=== PATIENT | male | born 1940 | race Caucasian/White ===

== ENCOUNTER 2017-01-26 11:59 | Observation (INO) ==
--- NOTE | 2017-01-26 12:10 | Emergency Department Note ---
Disposition Clinical Impression: Nausea & vomiting, Elevated troponin I level Disposition: Admitted As Inpatient Condition: Good General Adult HPI - General Chief complaint: ED Shortness of Breath/Dyspnea Stated complaint: vomiting, HERLINDA, Time Seen by Provider: 01/26/17 12:06 Source: patient Limitations: no limitations - History of Present Illness Pain Scale: 0 - Related Data Home Medications Medication Instructions Recorded Confirmed Amlodipine [Norvasc] 5 mg PO BID 01/26/17 01/26/17 Aspirin [Lo-Dose Aspirin EC] 81 mg PO DAILY 01/26/17 01/26/17 Carvedilol [Coreg] 3.125 mg PO BID 01/26/17 01/26/17 CloNIDine HCl [Kapvay] 0.1 mg PO TID 01/26/17 01/26/17 Digoxin [Lanoxin] 0.125 mg PO Q48H 01/26/17 01/26/17 Furosemide [Lasix] 20 mg PO BID 01/26/17 01/26/17 Insulin Glargine [Lantus] 55 unit SQ QAM 01/26/17 01/26/17 Insulin Regular, Human [Novolin R] 2 - 10 unit SQ TIDWM 01/26/17 01/26/17 Lisinopril [Lisinopril] 40 mg PO QAM 01/26/17 01/26/17 Omeprazole [PriLOSEC] 20 mg PO QAM 01/26/17 01/26/17 Sertraline [Zoloft] 50 mg PO HS 01/26/17 01/26/17 Simvastatin [Simvastatin] 10 mg PO HS 01/26/17 01/26/17 Warfarin [Coumadin] 5 mg PO Q48H 01/26/17 01/26/17 Warfarin [Coumadin] 7.5 mg PO Q48H 01/26/17 01/26/17 Allergies Allergy/AdvReac Type Severity Reaction Status Date / Time No Known Allergies Allergy Verified 02/05/16 19:23 Past Medical History - Past Medical History Medical history: Reports: atrial fibrillation, diabetes, hypertension, renal disease, other Psychiatric history: Reports: no psych history - Social History Smoking Status: Current every day smoker Smokeless Tobacco Status: No Alcohol use: Reports: none Drug use: Reports: none Physical Exam - General Limitations: no limitations General appearance: alert, in no apparent distress Course Vital Signs Temperature 97.4 F L 01/26/17 12:01 Pulse Rate 76 01/26/17 12:01 Respiratory Rate 18 01/26/17 12:01 Blood Pressure 125/78 01/26/17 12:01 O2 Sat by Pulse Oximetry 94 L 01/26/17 12:01 Temperature 98.1 F 01/26/17 19:55 Pulse Rate 58 01/26/17 19:55 Respiratory Rate 16 01/26/17 19:55 Blood Pressure 168/80 01/26/17 19:55 O2 Sat by Pulse Oximetry 93 L 01/26/17 19:55 Oxygen Delivery Oxygen Delivery Room Air Medical Decision Making - Lab Data Result diagrams: 01/26/17 12:40 01/26/17 12:40 Lab Results 01/26/17 01/26/17 01/26/17 Range/Units 12:40 12:40 12:40 WBC 9.7 (4.3-11.1) K/mcL RBC 4.32 (4.19-5.50) M/mcL Hgb 13.1 (12.9-16.9) g/dL Hct 38.5 (37.5-50.1) % MCV 89.1 (83.0-100.0) fL MCH 30.3 (28.0-33.3) pg MCHC 34.0 (31.6-35.5) g/dL RDW 13.8 (11.5-14.5) % Plt Count 188 (140-400) K/mcL MPV 9.0 L (9.4-12.4) fL Immature Gran % 0.5 (0-4) % Seg Neutrophils % 80.6 % Lymphocytes % 12.7 % Monocytes % 4.5 % Eosinophils % 1.3 % Basophils % 0.4 % Neutrophils # 7.8 (1.6-8.9) K/mcL Lymphocytes # 1.2 (0.6-4.6) K/mcL Monocytes # 0.4 (0.0-1.3) K/mcL Eosinophils # 0.1 (0.0-0.6) K/mcL Basophils # 0.0 (0.0-0.2) K/mcL PT 19.3 H (9.4-12.1) Seconds INR 1.8 Sodium 136 (136-145) mEq/L Potassium 3.8 (3.5-4.5) mEq/L Chloride 107 (98-109) mEq/L Carbon Dioxide 18 L (19-29) mEq/L BUN 23 (8-26) mg/dL Creatinine 2.34 H (0.72-1.25) mg/dL Est GFR ( Amer) 33 L (> 60) Est GFR (Non-Af Amer) 27 L (> 60) BUN/Creatinine Ratio 10 (6-26) Glucose 168 H (70-99) mg/dL Calculated Osmolality 290 (280-300) Calcium 9.2 (8.6-10.8) mg/dL Total Bilirubin 1.1 (0.2-1.2) mg/dL Direct Bilirubin 0.3 (0.0-0.5) mg/dL Indirect Bilirubin 0.8 (0.0-1.2) mg/dL AST 19 (5-34) Units/L ALT 12 (0-55) Units/L Alkaline Phosphatase 120 (38-126) Units/L Troponin I (0-0.03) ng/mL Serum Total Protein 7.8 (6.0-8.3) g/dL Albumin 3.3 L (3.5-5.0) g/dL Globulin 4.5 H (2.4-3.5) g/dL Albumin/Globulin Ratio 0.7 L (1.1-2.2) Lipase 43 (8-78) Units/L Digoxin 0.4 L (0.8-2.0) ng/mL 03/12/17 Range/Units 12:40 WBC (4.3-11.1) K/mcL RBC (4.19-5.50) M/mcL Hgb (12.9-16.9) g/dL Hct (37.5-50.1) % MCV (83.0-100.0) fL MCH (28.0-33.3) pg MCHC (31.6-35.5) g/dL RDW (11.5-14.5) % Plt Count (140-400) K/mcL MPV (9.4-12.4) fL Immature Gran % (0-4) % Seg Neutrophils % % Lymphocytes % % Monocytes % % Eosinophils % % Basophils % % Neutrophils # (1.6-8.9) K/mcL Lymphocytes # (0.6-4.6) K/mcL Monocytes # (0.0-1.3) K/mcL Eosinophils # (0.0-0.6) K/mcL Basophils # (0.0-0.2) K/mcL PT (9.4-12.1) Seconds INR Sodium (136-145) mEq/L Potassium (3.5-4.5) mEq/L Chloride (98-109) mEq/L Carbon Dioxide (19-29) mEq/L BUN (8-26) mg/dL Creatinine (0.72-1.25) mg/dL Est GFR ( Amer) (> 60) Est GFR (Non-Af Amer) (> 60) BUN/Creatinine Ratio (6-26) Glucose (70-99) mg/dL Calculated Osmolality (280-300) Calcium (8.6-10.8) mg/dL Total Bilirubin (0.2-1.2) mg/dL Direct Bilirubin (0.0-0.5) mg/dL Indirect Bilirubin (0.0-1.2) mg/dL AST (5-34) Units/L ALT (0-55) Units/L Alkaline Phosphatase (38-126) Units/L Troponin I 0.05 H* (0-0.03) ng/mL Serum Total Protein (6.0-8.3) g/dL Albumin (3.5-5.0) g/dL Globulin (2.4-3.5) g/dL Albumin/Globulin Ratio (1.1-2.2) Lipase (8-78) Units/L Digoxin (0.8-2.0) ng/mL Attestation Statement - Attestation Attestation: I examined this patient and my medical decision-making was reviewed with the DAY CARE AIDE/PA/Advanced Practice Nurse/Resident Physician. I agree with the documented findings, disposition and treatment plan as described except to the extent set forth below. Face to face time provided Patient presents feeling dizzy and nauseated since this morning. He is hard of hearing on exam. I did review his home medications and see that he takes both warfarin and digoxin.
[2017-01-26] MEDS ORDERED: Ondansetron ODT 4 MG TAB.RAPDIS SL ONE (12:19)
[2017-01-26] MEDS ORDERED: 0.9 % Sodium Chloride 1,000 ML IVC ONE (12:19)
--- NOTE | 2017-01-26 12:29 | Emergency Department Note ---
Disposition Clinical Impression: Elevated troponin I level Nausea & vomiting Qualifiers: Vomiting type: unspecified Vomiting Intractability: intractable Qualified Code( s): R11.2 - Nausea with vomiting, unspecified Disposition: Admitted As Inpatient Condition: Good General Adult HPI - General Chief complaint: ED Shortness of Breath/Dyspnea Stated complaint: vomiting, HERLINDA, Time Seen by Provider: 01/26/17 12:06 Source: patient Limitations: no limitations Nursing Notes Reviewed: Yes Vital Signs Reviewed: Yes - History of Present Illness HPI Narrative: Patient is here for evaluation of sudden onset nausea and multiple episodes of vomiting. Patient states that his son in their both have similar symptoms. Patient is concerned for flu. Patient denies abdominal pain. However upon abdominal examination patient became cueing nauseous and vomited multiple times in the room. Patient states that he has not had symptoms like this in quite some time since he usually gets the flu shot but did not this year. Patient has had no abnormal bowel movements. Patient does not complain a cough of cough or difficulty breathing. Denies fever but states he has lots of chills and is usually cold. Pain Scale: 0 - Related Data Home Medications Medication Instructions Recorded Confirmed Amlodipine [Norvasc] 5 mg PO BID 01/26/17 01/26/17 Aspirin [Lo-Dose Aspirin EC] 81 mg PO DAILY 01/26/17 01/26/17 Carvedilol [Coreg] 3.125 mg PO BID 01/26/17 01/26/17 CloNIDine HCl [Kapvay] 0.1 mg PO TID 01/26/17 01/26/17 Digoxin [Lanoxin] 0.125 mg PO Q48H 01/26/17 01/26/17 Furosemide [Lasix] 20 mg PO BID 01/26/17 01/26/17 Insulin Glargine [Lantus] 55 unit SQ QAM 01/26/17 01/26/17 Insulin Regular, Human [Novolin R] 2 - 10 unit SQ TIDWM 01/26/17 01/26/17 Lisinopril [Lisinopril] 40 mg PO QAM 01/26/17 01/26/17 Omeprazole [PriLOSEC] 20 mg PO QAM 01/26/17 01/26/17 Sertraline [Zoloft] 50 mg PO HS 01/26/17 01/26/17 Simvastatin [Simvastatin] 10 mg PO HS 01/26/17 01/26/17 Warfarin [Coumadin] 5 mg PO Q48H 01/26/17 01/26/17 Warfarin [Coumadin] 7.5 mg PO Q48H 01/26/17 01/26/17 Allergies Allergy/AdvReac Type Severity Reaction Status Date / Time No Known Allergies Allergy Verified 02/05/16 19:23 All systems ED: reviewed and negative except as stated. Constitutional: Reports: chills, weakness. Denies: fever Cardiovascular: Denies: chest pain, palpitations, dyspnea on exertion Respiratory: Denies: cough, dyspnea Gastrointestinal: Reports: nausea, vomiting. Denies: abdominal pain Genitourinary: Denies: urgency, dysuria Musculoskeletal: Denies: back pain Integumentary: Denies: rash, abrasion Neurological: Denies: headache, weakness Psychiatric: Denies: anxiety, depression Endocrine: Reports: fatigue Past Medical History - Past Medical History Medical history: Reports: atrial fibrillation, diabetes, hypertension, renal disease, other Psychiatric history: Reports: no psych history - Social History Smoking Status: Current every day smoker Smokeless Tobacco Status: No Alcohol use: Reports: none Drug use: Reports: none Physical Exam - General Limitations: no limitations General appearance: alert, in no apparent distress - Head Head exam: atraumatic, normocephalic - Eye Eye exam: Present: normal appearance, PERRL - ENT ENT exam: normal exam, normal oropharynx - Neck Neck exam: Present: normal inspection, full ROM - Chest Chest inspection: Present: normal inspection, symmetric chest wall rise. Absent : tenderness - Respiratory Respiratory exam: Present: normal lung sounds bilaterally. Absent: respiratory distress, wheezes - Cardiovascular Cardiovascular exam: Present: regular rate, normal rhythm - Abdominal Exam Abdominal exam: Present: soft, Non-Tender - Extremities Exam Extremities exam: Present: normal inspection - Back Exam Back exam: Present: normal inspection - Neurological Exam Neurological exam: Present: alert, oriented X3 - Psychiatric Psychiatric exam: Present: normal affect, normal mood - Skin Skin exam: Present: warm, dry Course - Reevaluation(s) Reevaluation #1: Patient vomiting over his gown, the floor, and my shoes. The patient with repeated retching and resulting emesis everywhere. Reevaluation #2: Pt somewhat improved with antiemetics. Family members also sick and unable to help care for him with his increased needs at this time. - Consultations Consultation #1: Discussed with Dr. Clark. Patient accepted for admission. Will obtain Chest Xray. Vital Signs Temperature 97.4 F L 01/26/17 12:01 Pulse Rate 76 01/26/17 12:01 Respiratory Rate 18 01/26/17 12:01 Blood Pressure 125/78 01/26/17 12:01 O2 Sat by Pulse Oximetry 94 L 01/26/17 12:01 Temperature 97.6 F 01/26/17 15:50 Pulse Rate 69 01/26/17 15:50 Respiratory Rate 18 01/26/17 15:50 Blood Pressure 170/82 01/26/17 17:17 O2 Sat by Pulse Oximetry 95 01/26/17 15:50 Oxygen Delivery Oxygen Delivery Room Air Medical Decision Making - Medical Records Medical records reviewed: Yes I reviewed the patient's medical records. - Lab Data Lab results reviewed: Yes I reviewed the patient's lab results. Result diagrams: 01/26/17 12:40 01/26/17 12:40 Lab Results 01/26/17 01/26/17 01/26/17 Range/Units 12:40 12:40 12:40 WBC 9.7 (4.3-11.1) K/mcL RBC 4.32 (4.19-5.50) M/mcL Hgb 13.1 (12.9-16.9) g/dL Hct 38.5 (37.5-50.1) % MCV 89.1 (83.0-100.0) fL MCH 30.3 (28.0-33.3) pg MCHC 34.0 (31.6-35.5) g/dL RDW 13.8 (11.5-14.5) % Plt Count 188 (140-400) K/mcL MPV 9.0 L (9.4-12.4) fL Immature Gran % 0.5 (0-4) % Seg Neutrophils % 80.6 % Lymphocytes % 12.7 % Monocytes % 4.5 % Eosinophils % 1.3 % Basophils % 0.4 % Neutrophils # 7.8 (1.6-8.9) K/mcL Lymphocytes # 1.2 (0.6-4.6) K/mcL Monocytes # 0.4 (0.0-1.3) K/mcL Eosinophils # 0.1 (0.0-0.6) K/mcL Basophils # 0.0 (0.0-0.2) K/mcL PT 19.3 H (9.4-12.1) Seconds INR 1.8 Sodium 136 (136-145) mEq/L Potassium 3.8 (3.5-4.5) mEq/L Chloride 107 (98-109) mEq/L Carbon Dioxide 18 L (19-29) mEq/L BUN 23 (8-26) mg/dL Creatinine 2.34 H (0.72-1.25) mg/dL Est GFR ( Amer) 33 L (> 60) Est GFR (Non-Af Amer) 27 L (> 60) BUN/Creatinine Ratio 10 (6-26) Glucose 168 H (70-99) mg/dL Calculated Osmolality 290 (280-300) Calcium 9.2 (8.6-10.8) mg/dL Total Bilirubin 1.1 (0.2-1.2) mg/dL Direct Bilirubin 0.3 (0.0-0.5) mg/dL Indirect Bilirubin 0.8 (0.0-1.2) mg/dL AST 19 (5-34) Units/L ALT 12 (0-55) Units/L Alkaline Phosphatase 120 (38-126) Units/L Troponin I (0-0.03) ng/mL Serum Total Protein 7.8 (6.0-8.3) g/dL Albumin 3.3 L (3.5-5.0) g/dL Globulin 4.5 H (2.4-3.5) g/dL Albumin/Globulin Ratio 0.7 L (1.1-2.2) Lipase 43 (8-78) Units/L Digoxin 0.4 L (0.8-2.0) ng/mL 01/26/17 Range/Units 12:40 WBC (4.3-11.1) K/mcL RBC (4.19-5.50) M/mcL Hgb (12.9-16.9) g/dL Hct (37.5-50.1) % MCV (83.0-100.0) fL MCH (28.0-33.3) pg MCHC (31.6-35.5) g/dL RDW (11.5-14.5) % Plt Count (140-400) K/mcL MPV (9.4-12.4) fL Immature Gran % (0-4) % Seg Neutrophils % % Lymphocytes % % Monocytes % % Eosinophils % % Basophils % % Neutrophils # (1.6-8.9) K/mcL Lymphocytes # (0.6-4.6) K/mcL Monocytes # (0.0-1.3) K/mcL Eosinophils # (0.0-0.6) K/mcL Basophils # (0.0-0.2) K/mcL PT (9.4-12.1) Seconds INR Sodium (136-145) mEq/L Potassium (3.5-4.5) mEq/L Chloride (98-109) mEq/L Carbon Dioxide (19-29) mEq/L BUN (8-26) mg/dL Creatinine (0.72-1.25) mg/dL Est GFR ( Amer) (> 60) Est GFR (Non-Af Amer) (> 60) BUN/Creatinine Ratio (6-26) Glucose (70-99) mg/dL Calculated Osmolality (280-300) Calcium (8.6-10.8) mg/dL Total Bilirubin (0.2-1.2) mg/dL Direct Bilirubin (0.0-0.5) mg/dL Indirect Bilirubin (0.0-1.2) mg/dL AST (5-34) Units/L ALT (0-55) Units/L Alkaline Phosphatase (38-126) Units/L Troponin I 0.05 H* (0-0.03) ng/mL Serum Total Protein (6.0-8.3) g/dL Albumin (3.5-5.0) g/dL Globulin (2.4-3.5) g/dL Albumin/Globulin Ratio (1.1-2.2) Lipase (8-78) Units/L Digoxin (0.8-2.0) ng/mL - Radiology Data Radiology results reviewed: Yes I reviewed the patient's radiology results. - EKG Data EKG #1 EKG attestation: Yes I reviewed and interpreted this EKG. EKG results narrative: EKG shows atrial fibrillation with a ventricular rate of 70 bpm. QRS 119. QTC 428. Patient has no significant ST elevations or depressions. Changes in the lateral leads are consistent with previous EKG of 02/09/15.
[2017-01-26] MEDS ORDERED: Ondansetron 4 MG/2 ML VIAL IV ONE (12:43)
[2017-01-26 12:57] LABS: Basophils % 0.4 %; Eosinophils # 0.1 K/mcL (0.0-0.6); Eosinophils % 1.3 %; Hematocrit 38.5 % (37.5-50.1); Hemoglobin 13.1 g/dL (12.9-16.9); INR 1.8; Immature Granulocytes % 0.5 % (0-4); Lymphocytes # 1.2 K/mcL (0.6-4.6); Lymphocytes % 12.7 %; Mean Corpuscular Hemoglobin 30.3 pg (28.0-33.3); Mean Corpuscular Volume 89.1 fL (83.0-100.0); Monocytes # 0.4 K/mcL (0.0-1.3); Monocytes % 4.5 %; Neutrophils # 7.8 K/mcL (1.6-8.9); Platelet Count 188 K/mcL (140-400); Prothrombin Time 19.3 Seconds (9.4-12.1); Red Blood Count 4.32 M/mcL (4.19-5.50); Red Cell Distribution Width 13.8 % (11.5-14.5); Segmented Neutrophils % 80.6 %
[2017-01-26 13:07] LABS: Albumin 3.3 g/dL (3.5-5.0); Albumin/Globulin Ratio 0.7 (1.1-2.2); Bilirubin,Direct 0.3 mg/dL (0.0-0.5); Bilirubin,Indirect 0.8 mg/dL (0.0-1.2); Bilirubin,Total 1.1 mg/dL (0.2-1.2); Calcium 9.2 mg/dL (8.6-10.8); Globulin 4.5 g/dL (2.4-3.5); Potassium 3.8 mEq/L (3.5-4.5); Total Protein 7.8 g/dL (6.0-8.3)
[2017-01-26 13:18] LABS: Digoxin 0.4 ng/mL (0.8-2.0)
[2017-01-26] MEDS: Aspirin 81 MG TAB.CHEW PO ONE ×2 (13:34)
[2017-01-26] MEDS ORDERED: Naloxone 0.4 MG/ML INJ IVP PRN (15:04)
[2017-01-26] MEDS ORDERED: Ondansetron 4 MG/2 ML VIAL IVP PRN (15:04)
--- NOTE | 2017-01-26 15:18 | Internal Med History&Physical ---
<Citlali Brothers - Last Filed: 01/27/17 01:14> Date of Encounter: 01/26/17 Time of Encounter: 15:15 Assessment and Plan (1) Nausea & vomiting Current visit: Yes Status: Acute Patient reports when he woke up this morning, he felt nauseous and was vomiting. Continued to Vomit in ED today. Denies abdominal pain or diarrhea. Reports normal, regular bowel movements. Abdomen is soft, non-tender with positive bowel sounds. NPO except sips of water and meds. Advance diet as tolerated. Gentle fluids given patient's cardiac history. Zofran IVP PRN for nausea. Qualifiers: Vomiting type: unspecified Vomiting Intractability: intractable Qualified Code(s): R11.2 - Nausea with vomiting, unspecified (2) Elevated troponin I level Current visit: Yes Status: Acute Troponin of 0.05. Patient with known history of CAD s/p CABG. Patient denies any chest pain, palpitations or shortness of breath. EKG shows afib with HR of [address] elevations or depressions and no changes from previous EKG in January 2015. Serial troponins for trend Continuous surveillance monitor. Echocardiogram and Stress test in the morning (3) Type 2 diabetes mellitus Current visit: Yes Status: Acute Patient not tolerating PO, but reports he took his lantus this morning. Check blood sugars Q6hr Low dose sliding scale Q6hr hypoglycemic protocol. Once patient tolerating PO, can start his home regimen of basal insulin dose of 55u daily and sliding scale with meals. Patient's kidney function is at baseline with BUN/Cr 23/2.34. 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 Qualifiers: Hypertension type: essential hypertension Qualified Code(s): I10 - Essential (primary) hypertension (5) Anticoagulation management encounter Current visit: Yes Status: Acute Patient is on coumadin for history of Afib. He denies any black or bloody stools, or other signs of bleeding. INR is subtherapeutic at 1.8. Will have pharmacy dose coumadin and recheck coags in the morning. (6) Subtherapeutic international normalized ratio (INR) Current visit: Yes Status: Acute INR is 1.8. Will have pharmacy dose coumadin and recheck coags in the morning. (7) DVT prophylaxis Current visit: Yes Status: Acute Patient does not ambulate much. Up to chair BID. anti-embolic stockings Patient on coumadin for anti-coagulation Internal Medicine - H&P: HPI Chief complaint: nausea and vomiting Admitted From: Emergency Dept Plans for Post Hospital Care: Home History of present illness: Mr. Holly is a 76 year old male with hypertension, diabetes, coronary artery disease s/p CABG, atrial fibrillation, on Coumadin, CKD stage IV, presented to the emergency department this morning with complaints of nausea and vomiting. Patient reports that when he woke up this morning he just started vomiting suddenly and has been nauseous. He denies any fever, chills, sweats, body aches. He denies any abdominal pain or diarrhea. Denies any headache. He reports some lightheadedness. He denies any chest pain, palpitations, or shortness of breath. On exam, patient is alert and oriented in no acute distress. Heart has irregular rhythm, rate. Lungs are clear bilaterally to auscultation. Abdomen is nontender with small ventral hernia to the left of umbilicus. Past Med Surg Social Fam HX - Past Medical History Medical history: atrial fibrillation, cancer (left RCC s/p nephrectomy), coronary artery disease, diabetes, hyperlipidemia, hypertension, renal disease, TIA, other Psychiatric history: no psych history - Past Surgical History Surgical History: coronary bypass (CABG) (3-vessel ), other (left nephrectomy) - Social History Smoking Status: Current every day smoker Smokeless Tobacco Status: No Alcohol use: none Drug use: none - Family History Father Living Status: Age at : 79 Cause of : Cancer Mother Living Status: Hx Family Cardiac Disorders: Yes Internal Medicine - H&P: Meds Amlodipine [Norvasc] 5 mg PO BID 01/26/17 [History] Aspirin [Lo-Dose Aspirin EC] 81 mg PO DAILY 01/26/17 [History] Carvedilol [Coreg] 3.125 mg PO BID 01/26/17 [History] CloNIDine HCl [Kapvay] 0.1 mg PO TID 01/26/17 [History] Digoxin [Lanoxin] 0.125 mg PO Q48H 01/26/17 [History] Furosemide [Lasix] 20 mg PO BID 01/26/17 [History] Insulin Glargine [Lantus] 55 unit SQ QAM 01/26/17 [History] Insulin Regular, Human [Novolin R] 2 - 10 unit SQ TIDWM 01/26/17 [History] Lisinopril [Lisinopril] 40 mg PO QAM 01/26/17 [History] Omeprazole [PriLOSEC] 20 mg PO QAM 01/26/17 [History] Sertraline [Zoloft] 50 mg PO HS 01/26/17 [History] Simvastatin [Simvastatin] 10 mg PO HS 01/26/17 [History] Warfarin [Coumadin] 5 mg PO Q48H 01/26/17 [History] Warfarin [Coumadin] 7.5 mg PO Q48H 01/26/17 [History] Allergies No Known Allergies Allergy (Verified 02/05/16 19:23) All Systems PM: A 10-system review of systems was performed and is negative for pertinent findings except as documented above in the HPI. - Constitutional Constitutional: no chills, no fever(s), no night sweats - EENT Eyes: no change in vision, no discharge, no pain, no photophobia Ears: no ear discharge, no ear pain, no tinnitus Nose, mouth and throat: no dysphagia, no nasal discharge, no neck pain, no sore throat - Cardiovascular Cardiovascular ROS IM: lightheadedness, no chest pain, no diaphoresis, no dyspnea, no palpitations, no syncope - Respiratory Respiratory: cough (chronic), no dyspnea, no wheezing, no excessive phlegm production - Gastrointestinal Gastrointestinal: nausea, vomiting, no abdominal pain, no diarrhea, no hematemesis, no hematochezia, no melena - Musculoskeletal Musculoskeletal ROS IM: no numbness, no tingling - Integumentary Integumentary IM: no rash, no unusual bruising - Neurological Neurological ROS: no confusion, no convulsions, no focal weakness, no numbness, no tingling, no tremor(s) - Hematologic/Lymphatic Hematologic/Lymphatic: no easy bruising - Constitutional Vitals: Temp Pulse Resp BP Pulse Ox 97.4 F L 67 14 147/97 64 L 01/26/17 12:01 01/26/17 12:53 01/26/17 14:21 01/26/17 14:21 01/26/17 12:53 General appearance: Present: A&O X 3, pleasant, no acute distress - Head Head exam: Present: atraumatic, normocephalic - Eye Eye exam: Present: PERRL, conjuntiva pink, sclera anicteric Pupils: Present: PERRL - Neck Neck exam general surgery: Present: supple, trachea midline. Absent: lymphadenopathy - Respiratory Respiratory exam: Present: CTAB. Absent: accessory muscle use, rales, rhonchi, wheezes - Cardiovascular Cardiovascular exam: Present: irregular rhythm, +S1, +S2. Absent: diastolic murmur, gallop, rubs, systolic murmur - GI/Abdominal GI/Abdominal exam: Present: hernia, normal bowel sounds, soft, no peritoneal signs. Absent: distended, tenderness - Extremities Exam Extremities exam: Present: warm, radial pulses palpable and symetrical. Absent : calf tenderness, cyanotic, pedal edema - Neurological Exam Neurological exam: Present: CN II-XII intact, oriented X3, no focal deficits. Absent: facial droop, speech deficit - Skin Skin exam: Present: dry, intact Internal Med - H&P Results - Labs CBC & Chem 7: 01/26/17 12:40 01/26/17 12:40 Labs: All Lab Results (24 Hours) 01/26/17 01/26/17 01/26/17 Range/Units 12:40 12:40 12:40 WBC 9.7 (4.3-11.1) K/mcL RBC 4.32 (4.19-5.50) M/mcL Hgb 13.1 (12.9-16.9) g/dL Hct 38.5 (37.5-50.1) % MCV 89.1 (83.0-100.0) fL MCH 30.3 (28.0-33.3) pg MCHC 34.0 (31.6-35.5) g/dL RDW 13.8 (11.5-14.5) % Plt Count 188 (140-400) K/mcL MPV 9.0 L (9.4-12.4) fL Immature Gran % 0.5 (0-4) % Seg Neutrophils % 80.6 % Lymphocytes % 12.7 % Monocytes % 4.5 % Eosinophils % 1.3 % Basophils % 0.4 % Neutrophils # 7.8 (1.6-8.9) K/mcL Lymphocytes # 1.2 (0.6-4.6) K/mcL Monocytes # 0.4 (0.0-1.3) K/mcL Eosinophils # 0.1 (0.0-0.6) K/mcL Basophils # 0.0 (0.0-0.2) K/mcL PT 19.3 H (9.4-12.1) Seconds INR 1.8 Sodium 136 (136-145) mEq/L Potassium 3.8 (3.5-4.5) mEq/L Chloride 107 (98-109) mEq/L Carbon Dioxide 18 L (19-29) mEq/L BUN 23 (8-26) mg/dL Creatinine 2.34 H (0.72-1.25) mg/dL Est GFR ( Amer) 33 L (> 60) Est GFR (Non-Af Amer) 27 L (> 60) BUN/Creatinine Ratio 10 (6-26) Glucose 168 H (70-99) mg/dL Calculated Osmolality 290 (280-300) Calcium 9.2 (8.6-10.8) mg/dL Total Bilirubin 1.1 (0.2-1.2) mg/dL Direct Bilirubin 0.3 (0.0-0.5) mg/dL Indirect Bilirubin 0.8 (0.0-1.2) mg/dL AST 19 (5-34) Units/L ALT 12 (0-55) Units/L Alkaline Phosphatase 120 (38-126) Units/L Troponin I (0-0.03) ng/mL Serum Total Protein 7.8 (6.0-8.3) g/dL Albumin 3.3 L (3.5-5.0) g/dL Globulin 4.5 H (2.4-3.5) g/dL Albumin/Globulin Ratio 0.7 L (1.1-2.2) Lipase 43 (8-78) Units/L Digoxin 0.4 L (0.8-2.0) ng/mL 01/26/17 Range/Units 12:40 WBC (4.3-11.1) K/mcL RBC (4.19-5.50) M/mcL Hgb (12.9-16.9) g/dL Hct (37.5-50.1) % MCV (83.0-100.0) fL MCH (28.0-33.3) pg MCHC (31.6-35.5) g/dL RDW (11.5-14.5) % Plt Count (140-400) K/mcL MPV (9.4-12.4) fL Immature Gran % (0-4) % Seg Neutrophils % % Lymphocytes % % Monocytes % % Eosinophils % % Basophils % % Neutrophils # (1.6-8.9) K/mcL Lymphocytes # (0.6-4.6) K/mcL Monocytes # (0.0-1.3) K/mcL Eosinophils # (0.0-0.6) K/mcL Basophils # (0.0-0.2) K/mcL PT (9.4-12.1) Seconds INR Sodium (136-145) mEq/L Potassium (3.5-4.5) mEq/L Chloride (98-109) mEq/L Carbon Dioxide (19-29) mEq/L BUN (8-26) mg/dL Creatinine (0.72-1.25) mg/dL Est GFR ( Amer) (> 60) Est GFR (Non-Af Amer) (> 60) BUN/Creatinine Ratio (6-26) Glucose (70-99) mg/dL Calculated Osmolality (280-300) Calcium (8.6-10.8) mg/dL Total Bilirubin (0.2-1.2) mg/dL Direct Bilirubin (0.0-0.5) mg/dL Indirect Bilirubin (0.0-1.2) mg/dL AST (5-34) Units/L ALT (0-55) Units/L Alkaline Phosphatase (38-126) Units/L Troponin I 0.05 H* (0-0.03) ng/mL Serum Total Protein (6.0-8.3) g/dL Albumin (3.5-5.0) g/dL Globulin (2.4-3.5) g/dL Albumin/Globulin Ratio (1.1-2.2) Lipase (8-78) Units/L Digoxin (0.8-2.0) ng/mL <Ray Clark - Last Filed: 01/28/17 17:48> Internal Medicine - H&P: HPI History of present illness: Mr. Holly is a 76 year old male All Systems PM: A 10-system review of systems was performed and is negative for pertinent findings except as documented above in the HPI. - Constitutional Vitals: Temp Pulse Resp BP Pulse Ox 97.6 F 53 16 183/55 94 L 01/28/17 15:09 01/28/17 15:09 01/28/17 15:09 01/28/17 15:09 01/28/17 15:09 Internal Med - H&P Results - Labs CBC & Chem 7: 01/28/17 03:39 01/28/17 03:39 Labs: Short CBC 01/28/17 Range/Units 03:39 WBC 7.0 (4.3-11.1) K/mcL Hgb 10.8 L (12.9-16.9) g/dL Hct 32.5 L (37.5-50.1) % Plt Count 142 (140-400) K/mcL Neutrophils # 4.5 (1.6-8.9) K/mcL BMP 01/28/17 03:39 Sodium 133 L Potassium 3.9 Chloride 107 Carbon Dioxide 18 L BUN 20 Creatinine 2.35 H Glucose 130 H Calcium 8.0 L Liver Function 01/28/17 Range/Units 03:39 Total Bilirubin 0.7 (0.2-1.2) mg/dL AST 17 (5-34) Units/L ALT 10 (0-55) Units/L Alkaline Phosphatase 93 (38-126) Units/L Albumin 2.5 L D (3.5-5.0) g/dL - Attending Attestation I examined this patient and my medical decision-making was reviewed with the Advanced Practice Nurse. I agree with the documented findings, disposition and treatment plan as described except to the extent set forth below. Patient presented to the hospital with intractable nausea and vomiting. On his initial workup it was noted that troponin was elevated. On exam he is currently in no acute distress, he reports mild nausea. Heart is regular S1- S2. Abdomen is soft nontender nondistended. Will place patient in observation and trend troponins to rule out ACS.
[2017-01-26] MEDS ORDERED: D5% in Water 1,000 ML IV PRN (15:44)
[2017-01-26] MEDS ORDERED: *HR* Dextrose 50 % in Water (Syg) 50 ML SYRINGE IVP PRN (15:44)
[2017-01-26] MEDS ORDERED: Dextrose Gel 15 GM PO PRN ×2 (15:44)
[2017-01-26] MEDS: 0.9 % Sodium Chloride 1,000 ML IVC SCH (16:09)
[2017-01-26] MEDS: *HR* Digoxin 0.125 MG TABLET PO SCH (16:10)
[2017-01-26] MEDS: Pantoprazole 40 MG VIAL IVP SCH (17:21)
[2017-01-26] MEDS: *HR* Warfarin 7.5 MG TABLET PO SCH (17:21)
[2017-01-26] MEDS: Insulin LISPRO 300 UNITS/3 ML VIAL SQ SCH (17:21)
[2017-01-26] MEDS: cloNIDine HCl 0.1 MG TABLET PO SCH ×2 (17:52→20:49)
[2017-01-26] MEDS ORDERED: Warfarin perPT PO PRN (18:00)
[2017-01-26] MEDS: amLODIPine 5 MG TABLET PO SCH (20:45)
[2017-01-26] MEDS ORDERED: cloNIDine HCl 0.1 MG TABLET PO SCH (21:00)
[2017-01-27] MEDS: Insulin LISPRO 300 UNITS/3 ML VIAL SQ SCH ×5 (00:24→23:41)
[2017-01-27 01:12] LABS: Basophils % 0.4 %; Eosinophils # 0.1 K/mcL (0.0-0.6); Eosinophils % 1.8 %; Hematocrit 32.8 % (37.5-50.1); Immature Granulocytes % 0.3 % (0-4); Lymphocytes # 1.6 K/mcL (0.6-4.6); Mean Corpuscular HGB Conc 32.9 g/dL (31.6-35.5); Mean Corpuscular Hemoglobin 30.1 pg (28.0-33.3); Mean Corpuscular Volume 91.4 fL (83.0-100.0); Monocytes # 0.5 K/mcL (0.0-1.3); Monocytes % 6.1 %; Neutrophils # 5.4 K/mcL (1.6-8.9); Platelet Count 135 K/mcL (140-400); Red Blood Count 3.59 M/mcL (4.19-5.50); Red Cell Distribution Width 13.9 % (11.5-14.5); Segmented Neutrophils % 70.4 %
[2017-01-27 01:27] LABS: Hemoglobin 10.8 g/dL (12.9-16.9); INR 1.8; Prothrombin Time 20.1 Seconds (9.4-12.1)
[2017-01-27 01:28] LABS: Calcium 8.3 mg/dL (8.6-10.8); Potassium 3.9 mEq/L (3.5-4.5)
[2017-01-27 01:29] LABS: Activated Partial Thrombo Time 34.6 Seconds (26.0-36.0)
[2017-01-27] MEDS ORDERED: Regadenoson 0.4 MG/5 ML SYRINGE IVP ONE (07:20)
[2017-01-27 08:31] LABS: Bilirubin,Urine Negative (Negative); Blood,Urine Moderate (Negative); Clarity,Urine Clear (Clear); Color,Urine Yellow (Yellow); Glucose,Urine (UA) 100 mg/dL (Normal); Ketones,Urine Negative (Negative); Leukocyte Esterase,Urine Negative (Negative); Nitrite,Urine Negative (Negative); Protein,Urine >=300 mg/dL (Neg-Trace); Specific Gravity,Urine 1.021 (1.010-1.025); Urobilinogen,Urine Normal (Normal)
[2017-01-27 08:33] LABS: Bacteria,Urine None Seen per hpf (None-Few); Hyaline Casts,Urine None Seen per lpf (None-Few); RBC,Urine 15-30 per hpf (0-3); Squamous Epithelial Cell,Urine Many per lpf (None-Few); WBC,Urine 15-30 per hpf (0-3)
[2017-01-27] MEDS: Pantoprazole 40 MG VIAL IVP SCH (09:50)
[2017-01-27] MEDS: Lisinopril 20 MG TABLET PO SCH (09:57)
[2017-01-27] MEDS: cloNIDine HCl 0.1 MG TABLET PO SCH ×3 (09:59→21:06)
[2017-01-27] MEDS: amLODIPine 5 MG TABLET PO SCH ×2 (09:59→21:06)
[2017-01-27] MEDS: Aspirin Enteric Coated 81 MG Tablet PO SCH (09:59)
[2017-01-27] MEDS: 0.9 % Sodium Chloride 1,000 ML IVC SCH (11:43)
--- NOTE | 2017-01-27 15:33 | Electrocardiograph Report ---
[place] [address] Test Date: 2017-01-26 Pat Name: Jadon Holly Department: 103 Room: 3B24 Gender: M Remote Sensing Specialist: : 1940 Requested By: Chinedu Murillo Order Number: [id number] Reading MD: Nikhil Lopze MD Measurements Intervals [place] Rate: 70 P: MA: 0 QRS: 46 QRSD: 119 T: -17 QT: 408 QTc: 428 Interpretive Statements ATRIAL FIBRILLATION INDETERMINATE AXIS INCOMPLETE RIGHT BUNDLE BRANCH BLOCK Electronically Signed On 01-27-2017 15:32:04 EDT by Nikhil Lopez MD
[2017-01-27] MEDS ORDERED: *HR* Warfarin 5 MG TABLET PO SCH (18:00)
[2017-01-27] MEDS ORDERED: *HR* Warfarin 1 MG TABLET PO ONE (18:00)
--- NOTE | 2017-01-27 18:39 | Internal Med Progress Note ---
Date of Encounter: 01/27/17 Time of Encounter: 18:36 - Assessment and plan (1) Nausea & vomiting Current Visit: Yes Status: Acute Assessment and plan: improved nausea and vomiting with symptomatic treatment. has occasional belching. overall feeling better. Qualifiers: Vomiting type: unspecified Vomiting Intractability: intractable Qualified Code(s): R11.2 - Nausea with vomiting, unspecified (2) Elevated troponin I level Current Visit: Yes Status: Acute Assessment and plan: noted elevated troponin level all 3 troponin at 0.05 please note creat 2.27 ECHO ordered not reported yet if abnormal then cardiology consult cancelled stress test as patient has elevated Trponin (3) HTN (hypertension) Current Visit: Yes Status: Acute Assessment and plan: home meds resume INR 1.8 Qualifiers: Hypertension type: essential hypertension Qualified Code(s): I10 - Essential (primary) hypertension - Subjective Interval history: seen and examined no active chest pain denies nausea, vomiting or arm pain. - Constitutional Vitals: Temp Pulse Resp BP Pulse Ox 97.1 F L 60 20 169/70 95 01/27/17 16:28 01/27/17 16:28 01/27/17 16:28 01/27/17 16:28 01/27/17 16:28 General appearance: Present: A&O X 3, pleasant, no acute distress - Head Head exam: Present: atraumatic, normocephalic - Eye Eye exam: Present: PERRL, conjuntiva pink, sclera anicteric Pupils: Present: PERRL - Neck Neck exam general surgery: Present: supple, trachea midline. Absent: lymphadenopathy - Respiratory Respiratory exam: Present: CTAB. Absent: accessory muscle use, rales, rhonchi, wheezes - Cardiovascular Cardiovascular exam: Present: RRR, +S1, +S2. Absent: diastolic murmur, gallop, rubs, systolic murmur - GI/Abdominal GI/Abdominal exam: Present: normal bowel sounds, soft, no peritoneal signs. Absent: distended, tenderness - Extremities Exam Extremities exam: Present: warm, radial pulses palpable and symetrical. Absent : calf tenderness, cyanotic, pedal edema - Neurological Exam Neurological exam: Present: CN II-XII intact, oriented X3, no focal deficits. Absent: pronater drift, facial droop, speech deficit - Skin Skin exam: Present: dry, intact Internal Medicine: Result - Labs CBC & Chem 7: 01/27/17 01:02 01/27/17 01:02 Labs: Short CBC 01/27/17 Range/Units 01:02 WBC 7.7 (4.3-11.1) K/mcL Hgb 10.8 L D (12.9-16.9) g/dL Hct 32.8 L (37.5-50.1) % Plt Count 135 L (140-400) K/mcL Neutrophils # 5.4 (1.6-8.9) K/mcL BMP 01/27/17 01:02 Sodium 134 L Potassium 3.9 Chloride 108 Carbon Dioxide 21 BUN 21 Creatinine 2.27 H Glucose 116 H Calcium 8.3 L Cardiac Enzymes 01/26/17 01/27/17 Range/Units 18:45 01:02 Troponin I 0.05 H* 0.05 H* (0-0.03) ng/mL Urine 01/27/17 Range/Units 08:00 Urine Color Yellow (Yellow) Urine Clarity Clear (Clear) Urine pH 6.0 (5.0-8.0) pH Units Ur Specific [place] 1.021 (1.010-1.025) Urine Protein >=300 H (Neg-Trace) mg/dL Urine Glucose (UA) 100 H (Normal) mg/dL - ABG Interpretation ABG results: PT/INR, D-dimer PT 20.1 Seconds (9.4-12.1) H 01/27/17 01:02 Consult Discharge Plan - Plan Referrals: Brenton Kruger DO [Primary Care Provider] -
[2017-01-28 04:18] LABS: Basophils # 0.1 K/mcL (0.0-0.2); Basophils % 0.7 %; Eosinophils # 0.3 K/mcL (0.0-0.6); Eosinophils % 3.8 %; Hematocrit 32.5 % (37.5-50.1); Hemoglobin 10.8 g/dL (12.9-16.9); Immature Granulocytes % 0.4 % (0-4); Lymphocytes # 1.7 K/mcL (0.6-4.6); Lymphocytes % 24.2 %; Mean Corpuscular HGB Conc 33.2 g/dL (31.6-35.5); Mean Corpuscular Hemoglobin 30.3 pg (28.0-33.3); Mean Platelet Volume 9.4 fL (9.4-12.4); Monocytes # 0.5 K/mcL (0.0-1.3); Monocytes % 7.1 %; Neutrophils # 4.5 K/mcL (1.6-8.9); Platelet Count 142 K/mcL (140-400); Red Blood Count 3.57 M/mcL (4.19-5.50); Red Cell Distribution Width 13.9 % (11.5-14.5); Segmented Neutrophils % 63.8 %
[2017-01-28 04:27] LABS: INR 2.1; Prothrombin Time 22.6 Seconds (9.4-12.1)
[2017-01-28 04:39] LABS: Albumin/Globulin Ratio 0.7 (1.1-2.2); Bilirubin,Total 0.7 mg/dL (0.2-1.2); Globulin 3.4 g/dL (2.4-3.5); Potassium 3.9 mEq/L (3.5-4.5)
[2017-01-28 04:40] LABS: Albumin 2.5 g/dL (3.5-5.0); Total Protein 5.9 g/dL (6.0-8.3)
[2017-01-28] MEDS: Insulin LISPRO 300 UNITS/3 ML VIAL SQ SCH ×3 (05:25→18:33)
[2017-01-28] MEDS: 0.9 % Sodium Chloride 1,000 ML IVC SCH (06:50)
--- NOTE | 2017-01-28 08:16 | ECHO - Doppler Report ---
Echocardiogram Name: Jadon Holly Date of Study: 01/27/2017 Date: 1940 Ht: 69.0 in Medical Record#: [id number] Age: 76 Wt: 183.0 lb Gender: Male BSA: 1.99 Order #: [id number] Location: [facility] Room #: 3B24 Reading Physician: Danny Butler MD, [facility] Tension Machine Operator: Ayse Barney Ordering Physician: Citlali Brothers CNP Primary Physician: Kieran Kruger DO Indications: Elevated troponin Impressions: LVEF 55%. There is hypokinesis of the basal inferior wall. Atypical septal motion consistent with prior cardiac surgery. Mild-moderate concentric left ventricular hypertrophy. Indeterminate diastolic function due to atrial fibrillation. Normal right ventricular size and function. Severely dilated left atrium. Mildly dilated right atrium. Mild tricuspid regurgitation. Severe pulmonary hypertension. Estimated RVSP = 75 mmHg. Left Ventricular Wall Motion: Rest Echo Findings The basal inferior wall was hypokinetic. All other wall segments showed normal motion. Findings: Study Quality * Technically adequate exam. ECG Findings * Atrial fibrillation. Left Ventricle * LVEF 55%. There is hypokinesis of the basal inferior wall. * Atypical septal motion consistent with prior cardiac surgery. * Mild-moderate concentric left ventricular hypertrophy. * Indeterminate diastolic function due to atrial fibrillation. Right Ventricle * Normal right ventricular size and function. Left Atrium * Severely dilated left atrium. Right Atrium * Mildly dilated right atrium. Aorta * Normally sized aortic root. Pericardium * There is no pericardial effusion present. IVC * The IVC is dilated. Aortic Valve * Aortic valve not well visualized. Appears mildly sclerotic. * No aortic stenosis. * No aortic regurgitation. Mitral Valve * Mild mitral annular calcification * No mitral stenosis. * Trace mitral regurgitation. Tricuspid Valve * Normal tricuspid valve structure. * No tricuspid stenosis. * Mild tricuspid regurgitation. * Severe pulmonary hypertension. Estimated RVSP = 75 mmHg. Pulmonic Valve * Pulmonic valve not well visualized. * No pulmonic stenosis. * Trace pulmonic regurgitation. History Hypertension Diabetes History of Smoking Years 55 Packs 0.5 History of CAD/PTCA Coronary Artery Bypass Graft 02/10/2015 a Previous Echo was performed. Measurements: BP: 173/ 82 2D Normal Values RVIDd: 3.80 cm IVSd: 1.50 cm 0.6 - 1.0 cm LVIDd: 5.00 cm 3.7 - 5.6 cm LVPWd: 1.30 cm 0.6 - 1.1 cm LVIDs: 3.30 cm 1.5 - 3.6 cm AO: 3.70 cm < 4.0 cm LA volume: 140 Tricuspid Valve TV Regurg Peak Grad: 67.00mmHg TV Regurg Peak Andrea: 4.09m/sec Updated by Danny Butler MD, [facility] on 01/28/2017 8:11:26 AM electronically signed on 01/28/2017 8:12:01 AM with status of Final Wall Motion Cintron: 1=Normal, 2=Hypokinesis, 3=Akinesis, 4=Dyskinesis, 5=Aneurysmal, 6=Hyperkinetic, X=Not Visualized (Blank)=Missing
[2017-01-28] MEDS: Aspirin Enteric Coated 81 MG Tablet PO SCH ×2 (08:26→12:08)
[2017-01-28] MEDS: Lisinopril 20 MG TABLET PO SCH ×2 (08:26→12:08)
[2017-01-28] MEDS: cloNIDine HCl 0.1 MG TABLET PO SCH ×2 (08:26→12:07)
[2017-01-28] MEDS: amLODIPine 5 MG TABLET PO SCH ×2 (08:26→12:07)
[2017-01-28] MEDS: Pantoprazole 40 MG VIAL IVP SCH (08:29)
--- NOTE | 2017-01-28 13:24 | Internal Med Progress Note ---
Date of Encounter: 01/28/17 Time of Encounter: 10:30 - Assessment and plan (1) Elevated troponin I level Current Visit: Yes Status: Acute Assessment and plan: Trop level has remained 0.05ng/dl. Stress test was postponed due to elevated level. I spoke with cardiology this a.m., will consult. Echo done today, LVEF 55 %, indeterminate diastolic function due to a-fib, mild-moderate concentric LV hypertrophy. Creatinine today also is 2.35, which is up slightly from 2.27 yesterday. Pt denies pain or sob, n/v also has resolved. Cardiology consult Monitor labs Monitor VS (2) Nausea & vomiting Current Visit: Yes Status: Resolved Assessment and plan: Resolved. Pt denies nausea or vomiting today. BS x 4 hyperactive. Pt was NPO in hopes for stress this a.m., however, he did have lunch. Tolerated well. Qualifiers: Qualified Code(s): R11.2 - Nausea with vomiting, unspecified (3) HTN (hypertension) Current Visit: Yes Status: Acute Assessment and plan: home meds resume INR 1.8 Pt has been hypertensive today, meds held this a.m. for possible stress, meds given at noon. Will continue to monitor. Qualifiers: Qualified Code(s): I10 - Essential (primary) hypertension (4) Type 2 diabetes mellitus Current Visit: Yes Status: Acute Assessment and plan: Glucose 162 today. Will continue diabetic diet, accucheck achs, and sliding scale insulin. Qualifiers: Qualified Code(s): E11.22 - Type 2 diabetes mellitus with diabetic chronic kidney disease; N18.4 - Chronic kidney disease, stage 4 (severe); Z79.4 - intermediate manager (current) use of insulin - Time Spent With Patient less than 15 minutes - Subjective Interval history: Pt is sitting up in chair, daughter at bs. pt denies pain, sob, n/v. I consulted cardiology at about 0830 this a.m., they are aware and deny questions. - Constitutional Vitals: Temp Pulse Resp BP Pulse Ox 98.0 F 65 16 203/83 93 L 01/28/17 10:47 01/28/17 10:47 01/28/17 10:47 01/28/17 10:47 01/28/17 10:47 General appearance: Present: A&O X 3, pleasant, no acute distress, answers questions appropriately - Head Head exam: Present: normal inspection - Eye Eye exam: Present: normal appearance, conjuntiva pink. Absent: nystagmus - ENT ENT exam: Present: mucous membranes moist, normal exam - Neck Neck exam general surgery: Present: normal inspection. Absent: lymphadenopathy , tenderness, thyromegaly - Respiratory Respiratory exam: Present: decreased breath sounds, CTAB. Absent: chest wall tenderness, rales, rhonchi, wheezes - Cardiovascular Cardiovascular exam: Present: RRR, +S1, +S2. Absent: diastolic murmur, systolic murmur - GI/Abdominal GI/Abdominal exam: Present: normal bowel sounds, soft. Absent: tenderness - Extremities Exam Extremities exam: Present: full ROM, normal capillary refill, pedal edema, warm , radial pulses palpable and symetrical. Absent: calf tenderness, cyanotic, joint swelling, tenderness Additional comments: Pt with +2 pitting pretibial and ankle edema. Pt states that they are better today than normal. - Neurological Exam Neurological exam: Present: alert, oriented X3. Absent: facial droop, speech deficit Internal Medicine: Result - Labs CBC & Chem 7: 01/28/17 03:39 01/28/17 03:39 Labs: Short CBC 01/28/17 Range/Units 03:39 WBC 7.0 (4.3-11.1) K/mcL Hgb 10.8 L (12.9-16.9) g/dL Hct 32.5 L (37.5-50.1) % Plt Count 142 (140-400) K/mcL Neutrophils # 4.5 (1.6-8.9) K/mcL BMP 01/28/17 03:39 Sodium 133 L Potassium 3.9 Chloride 107 Carbon Dioxide 18 L BUN 20 Creatinine 2.35 H Glucose 130 H Calcium 8.0 L Liver Function 01/28/17 Range/Units 03:39 Total Bilirubin 0.7 (0.2-1.2) mg/dL AST 17 (5-34) Units/L ALT 10 (0-55) Units/L Alkaline Phosphatase 93 (38-126) Units/L Albumin 2.5 L D (3.5-5.0) g/dL - ABG Interpretation ABG results: PT/INR, D-dimer PT 22.6 Seconds (9.4-12.1) H 01/28/17 03:39 Consult Discharge Plan - Plan Referrals: Brenton Kruger DO [Primary Care Provider] -
--- NOTE | 2017-01-28 13:41 | Cardiology Consult Note ---
Date of Encounter: 01/28/17 Time of Encounter: 13:37 Assessment and Plan (1) Elevated troponin I level Current Visit: Yes Status: Acute Troponin 0.05 x 3. Borderline troponin in setting of Stage 4 CKD and hypertensive urgency with BP 195/97 shortly after admission, nausea and vomiting. Likely secondary to demand ischemia, nondiagnostic for ACS. EKG reviewed. There was significant ST depression on EKG from 2014, but current EKG shows improvement in depression. Echo EF 55%, new hypokinesis of basal inferior wall. Pt with hx of CABG x 3 in remote past. Negative stress test 09/2013. Pt with stage 4 CKD s/p left nephrectomy for renal carcinoma. Pt denies chest pain or dyspnea. Discussed with pt and he has no interest in [facility] given the risk of contrast induced nephropathy requiring dialysis. Given this, no stress test is warranted. Will further discuss with Dr. Kameron Mclean. (2) CAD (coronary artery disease) Current Visit: Yes Status: Acute Hx of 3 vessel CABG in remote past. Negative stress test 09/2013. Continue ASA, Statin, BB. Qualifiers: Coronary Disease-Associated Artery/Lesion type: [place] artery [place] vs. transplanted heart: [place] heart Associated angina: without angina Qualified Code(s): I25.10 - Atherosclerotic heart disease of [place] coronary artery without angina pectoris (3) A-fib Current Visit: Yes Status: Chronic Chronic A-Fib, rate controlled on Coreg 3.125mg BID and Digoxin 125mcg QOD-- renally dosed. 24 hour tele AVG HR 60. Lowest HR 40s during nocturnal hours. Bradycardia could have caused dizziness/lightheadedness prior to admission. Dig level 0.4. Will discuss with Dr. Kameron Mclean regarding continuation of Digoxin. Anticoagulated on Coumadin, INR therapeutic 2.1. Managed by Dr. Watson as outpt. Qualifiers: Atrial fibrillation type: chronic Qualified Code(s): I48.2 - Chronic atrial fibrillation (4) HTN (hypertension) Current Visit: Yes Status: Acute Not well controlled--203/83 most recent reading. However, AM meds were held for possible stress test. Antihypertensives given at noon. Continue to monitor and adjust as necessary. Qualifiers: Hypertension type: essential hypertension Qualified Code(s): I10 - Essential (primary) hypertension Discussion w patient/family: The assessment and plan as outlined above was discussed with the patient and/or family members who expressed understanding and agreement. All questions were answered. Thank you for involving us in the care of your patient. Please call with any questions. I will discuss all the above with Dr. Kameron Mclean and make changes as necessary. History of Present Illness Consult date: 01/28/17 Requesting physician: Tony Thorpe Consult reason: Elevated troponin Chief complaint: dizziness/lightheadedness, nausea/vomiting History of present illness: Mr. Holly is a 76 year old male with PMH of HTN, diabetes, CAD s/p CABG, atrial fibrillation on Coumadin, CKD stage IV (s/p left nephrectomy) that reports he woke up Friday morning and felt dizzy/lightheaded. He then had episodes of nausea/vomiting. He denies any loss of consciousness, chest pain or dyspnea. Troponins were checked--0.05x3. Echo obtained--EF 55%, hypokinesis of basal inferior wall, mild-moderate concentric LVH, severely dilated left atrium , mildly dilated right atrium, mild TR, severe pulmonary htn est RVSP 75mmHg. Cardiology consulted for borderline troponins. UA positive, but urine culture with no growth. Influenza A and B negative. Symptoms have resolved. Past Med Surg Social Fam HX - Past Medical History Medical history: atrial fibrillation, cancer (left RCC s/p nephrectomy), coronary artery disease, diabetes, hyperlipidemia, hypertension, renal disease, TIA, other Psychiatric history: no psych history - Past Surgical History Surgical History: coronary bypass (CABG) (3-vessel ), other (left nephrectomy) - Social History Smoking Status: Current every day smoker Packs per day: 1/2 Smokeless Tobacco Status: No Alcohol use: none Drug use: none - Family History Father Living Status: Age at : 79 Cause of : Cancer Hx Family Cancer: Yes (Pancreatic) Mother Living Status: Hx Family Cardiac Disorders: Yes Hx Family Medical Disorders: (Aneurysm) Medications and Allergies Amlodipine [Norvasc] 5 mg PO BID 01/26/17 [History] Aspirin [Lo-Dose Aspirin EC] 81 mg PO DAILY 01/26/17 [History] Carvedilol [Coreg] 3.125 mg PO BID 01/26/17 [History] CloNIDine HCl [Kapvay] 0.1 mg PO TID 01/26/17 [History] Digoxin [Lanoxin] 0.125 mg PO Q48H 01/26/17 [History] Furosemide [Lasix] 20 mg PO BID 01/26/17 [History] Insulin Glargine [Lantus] 55 unit SQ QAM 01/26/17 [History] Insulin Regular, Human [Novolin R] 2 - 10 unit SQ TIDWM 01/26/17 [History] Lisinopril [Lisinopril] 40 mg PO QAM 01/26/17 [History] Omeprazole [PriLOSEC] 20 mg PO QAM 01/26/17 [History] Sertraline [Zoloft] 50 mg PO HS 01/26/17 [History] Simvastatin [Simvastatin] 10 mg PO HS 01/26/17 [History] Warfarin [Coumadin] 5 mg PO Q48H 01/26/17 [History] Warfarin [Coumadin] 7.5 mg PO Q48H 01/26/17 [History] Allergies No Known Allergies Allergy (Verified 02/05/16 19:23) All Systems Review: A 10-system review of systems was performed and is negative for pertinent findings except as documented above in the HPI. - Cardiovascular Cardiovascular: as per HPI, lightheadedness - Gastrointestinal Gastrointestinal: nausea - Neurological Neurological: dizziness Physical Examination Vital Signs, Last 4 Hours Temp Pulse Resp BP Pulse Ox 01/28/17 10:47 98.0 F 65 16 203/83 93 L Vital Signs Temp Pulse Resp BP Pulse Ox 01/28/17 10:47 98.0 F 65 16 203/83 93 L 01/28/17 08:20 91 L 01/28/17 07:41 98.2 F 68 15 157/84 91 L 01/28/17 03:45 98 F 65 16 144/77 91 L 01/27/17 23:18 98.2 F 65 17 169/75 90 L 01/27/17 18:48 97.3 F L 65 17 191/71 95 01/27/17 16:28 97.1 F L 60 20 169/70 95 Intake and Output 01/27/17 01/28/17 01/28/17 23:59 07:59 15:59 Intake Total 1175 / 1175 745 / 745 240 / 240 Output Total 270 / 270 600 / 600 Balance 905 / 905 145 / 145 240 / 240 Intake: IV Fluids 455 / 455 545 / 545 0.9 % Sodium Chloride 1, 455 / 455 545 / 545 000 ML @ 50 mls/hr IVC . Q20H [facility] Rx#:[id number] Oral 720 / 720 200 / 200 240 / 240 Output: Urine 270 / 270 600 / 600 Other: Meal Dinner Lunch Percent of Meal Consumed 100% Stool Size Large Stool Consistency loose soft Stool Color Brown # Bowel Movements 1 # Bowel Movement Diapers 1 Weight 84 kg Blood Glucose* 144 141 162 Patient Weight 01/28/17 23:59 Weight 84 kg General: Conversant, No Apparent Distress HEENT: Atraumatic, Normocephaly, Mucus Membranes Moist Neck: No JVD, Normal carotid pulses Cardiac: Other (irregularly irregular) Lungs: Normal Breath Sounds, No Wheeze, Rales, Rhonchi Neuro: Alert and responsive, No focal deficits noted Abdomen: Soft, Non-Tender Skin: No rashes noted on visualized skin Musculoskeletal: No Chest Wall Tenderness Extremities: No Clubbing, No Cyanosis, No Edema, Normal Pulses Results 01/28/17 03:39 01/28/17 03:39 Lab Results 01/28/17 01/28/17 01/28/17 03:39 03:39 03:39 WBC 7.0 Hgb 10.8 L Hct 32.5 L Plt Count 142 INR 2.1 Sodium 133 L Potassium 3.9 Chloride 107 Carbon Dioxide 18 L BUN 20 Creatinine 2.35 H Glucose 130 H Calcium 8.0 L Total Bilirubin 0.7 AST 17 ALT 10 Alkaline Phosphatase 93 Short CBC 01/28/17 Range/Units 03:39 WBC 7.0 (4.3-11.1) K/mcL Hgb 10.8 L (12.9-16.9) g/dL Hct 32.5 L (37.5-50.1) % Plt Count 142 (140-400) K/mcL Neutrophils # 4.5 (1.6-8.9) K/mcL BMP 01/28/17 Range/Units 03:39 Sodium 133 L (136-145) mEq/L Potassium 3.9 (3.5-4.5) mEq/L Chloride 107 (98-109) mEq/L Carbon Dioxide 18 L (19-29) mEq/L BUN 20 (8-26) mg/dL Creatinine 2.35 H (0.72-1.25) mg/dL Glucose 130 H (70-99) mg/dL Calcium 8.0 L (8.6-10.8) mg/dL Liver Function 01/28/17 Range/Units 03:39 Total Bilirubin 0.7 (0.2-1.2) mg/dL AST 17 (5-34) Units/L ALT 10 (0-55) Units/L Alkaline Phosphatase 93 (38-126) Units/L Albumin 2.5 L D (3.5-5.0) g/dL Active Medications Amlodipine Besylate (Norvasc) 5 mg PO BID [facility] PRN Reason: Protocol Stop: 07/28/17 21:01 Last Admin: 01/28/17 12:07 Dose: 5 mg Aspirin (Aspirin Ec) 81 mg PO DAILY [facility] Stop: 07/29/17 09:01 Last Admin: 01/28/17 12:08 Dose: 81 mg Carvedilol (Coreg) 3.125 mg PO BIDWM [facility] PRN Reason: Protocol Stop: 07/28/17 17:01 Last Admin: 01/28/17 12:11 Dose: 3.125 mg Clonidine HCl (Clonidine Hcl) 0.1 mg PO TID [facility] Stop: 07/28/17 17:26 Last Admin: 01/28/17 12:07 Dose: 0.1 mg Dextrose/Water (Dextrose 50% (Syg)) 25 ml IVP AD PRN PRN Reason: Hypoglycemia Stop: 07/28/17 15:45 Digoxin (Lanoxin) 0.125 mg PO Q48H [facility] Stop: 07/28/17 15:16 Last Admin: 01/26/17 16:10 Dose: 0.125 mg Glucagon (Glucagen) 1 mg IM ONCE PRN PRN Reason: Hypoglycemia Stop: 07/28/17 15:45 Glucose (Gluctose) 15 gm PO ONCE PRN PRN Reason: Hypoglycemia Stop: 07/28/17 15:45 Glucose (Gluctose) 30 gm PO ONCE PRN PRN Reason: Hypoglycemia Stop: 07/28/17 15:45 Sodium Chloride (0.9 % Sodium Chloride) 1,000 mls @ 50 mls/hr IVC .Q20H [facility] Stop: 07/28/17 15:16 Last Admin: 01/28/17 06:50 Dose: 50 mls/hr Dextrose (Dextrose 5%) 1,000 mls @ 100 mls/hr IV CONT PRN PRN Reason: HYPOGLYCEMIA Stop: 07/28/17 15:45 Insulin Human Lispro (Humalog) 0 units SQ Q6HR [facility] PRN Reason: Protocol Stop: 07/28/17 18:01 Last Admin: 01/28/17 12:08 Dose: 2 units Lisinopril (Zestril) 40 mg PO QAM [facility] Stop: 07/29/17 09:01 Last Admin: 01/28/17 12:08 Dose: 40 mg Naloxone HCl (Narcan) 0.4 mg IVP Q2MIN PRN PRN Reason: Opioid Reversal Stop: 07/28/17 15:05 Ondansetron HCl (Zofran) 4 mg IVP Q8HR PRN PRN Reason: Nausea And Vomiting Stop: 07/28/17 15:05 Pantoprazole Sodium (Protonix) 40 mg IVP DAILY [facility] Stop: 07/28/17 15:16 Last Admin: 01/28/17 08:29 Dose: 40 mg Sertraline HCl (Zoloft) 50 mg PO HS [facility] Stop: 07/28/17 21:01 Last Admin: 01/27/17 21:06 Dose: 50 mg Simvastatin (Zocor) 10 mg PO HS [facility] Stop: 07/28/17 21:01 Last Admin: 01/27/17 21:06 Dose: 10 mg Warfarin Sodium (Coumadin Perpt) 1 each PO DAILY@1800 PRN PRN Reason: SEE COMMENTS Stop: 07/28/17 18:01 Warfarin Sodium (Coumadin) 7.5 mg PO Q48H [facility] Stop: 07/28/17 18:01 Last Admin: 01/26/17 17:21 Dose: 7.5 mg Warfarin Sodium (Coumadin) 5 mg PO Q48H [facility] Stop: 07/29/17 18:01 Last Admin: 01/27/17 17:36 Dose: 5 mg - Imaging and Cardiology Echo: report reviewed (EF 55%, hypokinesis of basal inferior wall. Mild- moderate concentric LVH. Severely dilated left atrium, mildly dilated right atrium, mild TR, severe pulmonary hypertension est RVSP 75mmHg.) - EKG Interpretation EKG results cardiology: personally reviewed (A-Fib, rate 70), other (24 hour tele AVG HR 60, A-Fib.) Consult Discharge Plan - Plan Referrals: Brenton Kruger, [Primary Care Provider] -
[2017-01-28 15:13] VITALS: BP 183/55
[2017-01-28] MEDS: *HR* Digoxin 0.125 MG TABLET PO SCH (15:32)
[2017-01-28] MEDS: *HR* Warfarin 7.5 MG TABLET PO SCH (18:33)
== END 2017-01-28 19:00 | disposition left against medical advice (07) ==
LOC: EMEROO 11:59 → 3BNU 11:59 → SUATTDRO 13:53 → 3BNU 15:00
PROVIDERS: ADMIT Internal Medicine; ATTEND Internal Medicine

== ENCOUNTER 2017-08-30 17:42 | Observation (INO) ==
[2017-08-30] MEDS ORDERED: Piperacillin/Tazobactam 4.5 GM in D5% in Water (Mini-Bag+) 100 ML IVPB ONE (18:42)
[2017-08-30] MEDS ORDERED: Vancomycin 1,000 MG in D5% in Water 250 ML IVPB ONE (18:42)
[2017-08-30] MEDS ORDERED: *HR* HYDROmorphone (PF) 1 MG/ML SYRINGE IVP ONE (18:42)
[2017-08-30 20:04] LABS: Basophils # 0.1 K/mcL (0.0-0.2); Basophils % 0.5 %; Eosinophils # 0.1 K/mcL (0.0-0.6); Eosinophils % 0.6 %; Hematocrit 30.9 % (37.5-50.1); Hemoglobin 10.9 g/dL (12.9-16.9); Immature Granulocytes % 0.4 % (0-4); Mean Corpuscular HGB Conc 35.3 g/dL (31.6-35.5); Mean Corpuscular Hemoglobin 31.1 pg (28.0-33.3); Mean Corpuscular Volume 88.3 fL (83.0-100.0); Mean Platelet Volume 9.2 fL (9.4-12.4); Monocytes # 0.9 K/mcL (0.0-1.3); Monocytes % 7.9 %; Neutrophils # 9.1 K/mcL (1.6-8.9); Platelet Count 193 K/mcL (140-400); Segmented Neutrophils % 81.6 %
[2017-08-30 21:21] LABS: Albumin 2.6 g/dL (3.5-5.0); Albumin/Globulin Ratio 0.6 (1.1-2.2); Bilirubin,Total 1.5 mg/dL (0.2-1.2); Calcium 8.9 mg/dL (8.6-10.8); Globulin 4.5 g/dL (2.4-3.5); Potassium 3.3 mEq/L (3.5-4.5); Total Protein 7.1 g/dL (6.0-8.3)
[2017-08-30 22:05] LABS: INR 1.9; Prothrombin Time 20.8 Seconds (9.4-12.1)
--- NOTE | 2017-08-30 23:14 | Emergency Department Note ---
Disposition Clinical Impression: Cellulitis Qualifiers: Site of cellulitis: extremity Site of cellulitis of extremity: upper extremity Laterality: right Qualified Code(s): L03.113 - Cellulitis of right upper limb Disposition: Home, Self-Care Condition: Good General Adult HPI - General Chief complaint: ED Skin/Abscess/Foreign Body Stated complaint: "Cellulitis-right hand" Time Seen by Provider: 08/30/17 18:35 Source: patient Limitations: no limitations Nursing Notes Reviewed: Yes Vital Signs Reviewed: Yes - History of Present Illness HPI Narrative: This is a 69-year-old male presents with concern for cellulitis. He was actually seen in urgent care 2 days ago and started on Keflex. He has been taking this but has had progressive swelling and pain in the right thenar eminence progressing up to the mid forearm. He has no fever or chills. Significant pain and swelling of the arm. There is fusiform swelling of all the digits of the hand. His vital signs are stable on arrival. He is recurring trauma to the hand with cigarette frias. General: No acute distress HEENT: Pupils equal and reactive to light, extraoccular muscle movement is normal, TMS are clear bilaterally. Heart: RRR, No murmor rub or gallop Lungs: lungs clear, no wheezing, rales or ronchi. ABD: SNT, no focal areas or tenderness, no guarding or rebound tenderness. Extremitiess: There is significant swelling to the thenar eminence of the right hand with good distal pulses and normal sensation over the radian, median, ulnar nerves. Neuro: CN 2-12 in tact, no focal deficit. strength 5/5 Medical decision making Initially the patient's x-ray suggested gas which would be concerning for neck testing fasciitis however I did obtain a CT scan with noncontrast after consultation with general surgery which does not suggest gas forming organism. Cultures were sent. Vancomycin and Zosyn were initiated. The lirnc was calculated and was 4. This does not suggest overt excising fasciitis at this time. I did order an MRI at the request of orthopedics. We will admit to the hospital service for further evaluation of cellulitis in the setting of multiple comorbidities. l. Pain Scale: 4 - Related Data Home Medications Medication Instructions Recorded Confirmed Aspirin [Lo-Dose Aspirin EC] 81 mg PO DAILY 01/26/17 01/26/17 Carvedilol [Coreg] 3.125 mg PO BID 01/26/17 01/26/17 CloNIDine HCl [Kapvay] 0.1 mg PO TID 01/26/17 01/26/17 Digoxin [Lanoxin] 0.125 mg PO Q48H 01/26/17 01/26/17 Furosemide [Lasix] 20 mg PO BID 01/26/17 01/26/17 Insulin Glargine [Lantus] 55 unit SQ QAM 01/26/17 01/26/17 Insulin Regular, Human [Novolin R] 2 - 10 unit SQ TIDWM 01/26/17 01/26/17 Lisinopril [Lisinopril] 40 mg PO QAM 01/26/17 01/26/17 Omeprazole [PriLOSEC] 20 mg PO QAM 01/26/17 01/26/17 Sertraline [Zoloft] 50 mg PO HS 01/26/17 01/26/17 Simvastatin [Simvastatin] 10 mg PO HS 01/26/17 01/26/17 Warfarin [Coumadin] 5 mg PO Q48H 01/26/17 01/26/17 Warfarin [Coumadin] 7.5 mg PO Q48H 01/26/17 01/26/17 amLODIPine [Norvasc] 5 mg PO BID 01/26/17 01/26/17 Previous Rx's Medication Instructions Recorded Amoxicillin 875 mg PO BID #20 tablet 07/20/17 DiphenhydraMINE [Benadryl] 25 mg PO Q8HR PRN #20 capsule 07/20/17 Jeferson/Poly/HC *EAR* SUSP 4 drop RIGHT EAR QID 7 Days 07/20/17 [Cortisporin *EAR* SUSP] drops.susp Mupirocin [Bactroban Oint] 1 appl TP BID 7 Days tube 08/28/17 cephALEXin [Keflex] 500 mg PO QID #40 capsule 08/28/17 Allergies Allergy/AdvReac Type Severity Reaction Status Date / Time No Known Allergies Allergy Verified 08/30/17 17:58 All systems ED: reviewed and negative except as stated. Past Medical History - Past Medical History Medical history: Reports: atrial fibrillation, cancer, diabetes, hypertension, renal disease, other Surgical history: Reports: coronary bypass (CABG) (3-vessel ), other (left nephrectomy) Psychiatric history: Reports: no psych history - Social History Smoking Status: Current every day smoker Smokeless Tobacco Status: No Alcohol use: Reports: none Drug use: Reports: none Physical Exam - General Limitations: no limitations General appearance: alert Course Vital Signs Temperature 99.1 F 08/30/17 17:59 Pulse Rate 73 08/30/17 17:59 Respiratory Rate 20 08/30/17 17:59 Blood Pressure 200/81 08/30/17 17:59 O2 Sat by Pulse Oximetry 96 08/30/17 17:59 Temperature 99.1 F 08/30/17 17:59 Pulse Rate 73 08/30/17 17:59 Respiratory Rate 16 08/30/17 23:05 Blood Pressure 167/81 08/30/17 23:05 O2 Sat by Pulse Oximetry 96 08/30/17 17:59 Oxygen Delivery Oxygen Delivery Room Air Medical Decision Making - Lab Data Result diagrams: 08/30/17 19:48 08/30/17 19:48 Lab Results 08/30/17 08/30/17 08/30/17 Range/Units 19:43 19:48 19:48 WBC 11.2 H (4.3-11.1) K/mcL RBC 3.50 L (4.19-5.50) M/mcL Hgb 10.9 L (12.9-16.9) g/dL Hct 30.9 L (37.5-50.1) % MCV 88.3 (83.0-100.0) fL MCH 31.1 (28.0-33.3) pg MCHC 35.3 (31.6-35.5) g/dL RDW 13.0 (11.5-14.5) % Plt Count 193 (140-400) K/mcL MPV 9.2 L (9.4-12.4) fL Immature Gran % 0.4 (0-4) % Seg Neutrophils % 81.6 % Lymphocytes % 9.0 % Monocytes % 7.9 % Eosinophils % 0.6 % Basophils % 0.5 % Neutrophils # 9.1 H (1.6-8.9) K/mcL Lymphocytes # 1.0 (0.6-4.6) K/mcL Monocytes # 0.9 (0.0-1.3) K/mcL Eosinophils # 0.1 (0.0-0.6) K/mcL Basophils # 0.1 (0.0-0.2) K/mcL ESR 113 H (0-10) mm/hr PT 20.8 H (9.4-12.1) Seconds INR 1.9 Sodium (136-145) mEq/L Potassium (3.5-4.5) mEq/L Chloride (98-109) mEq/L Carbon Dioxide (19-29) mEq/L BUN (8-26) mg/dL Creatinine (0.72-1.25) mg/dL Est GFR ( Amer) (> 60) Est GFR (Non-Af Amer) (> 60) BUN/Creatinine Ratio (6-26) Glucose (70-99) mg/dL Calculated Osmolality (280-300) Lactic Acid (0.5-2.2) mmol/L Calcium (8.6-10.8) mg/dL Total Bilirubin (0.2-1.2) mg/dL AST (5-34) Units/L ALT (0-55) Units/L Alkaline Phosphatase (38-126) Units/L C-Reactive Protein (Less than 5) mg/L Serum Total Protein (6.0-8.3) g/dL Albumin (3.5-5.0) g/dL Globulin (2.4-3.5) g/dL Albumin/Globulin Ratio (1.1-2.2) 08/30/17 08/30/17 Range/Units 19:48 19:48 WBC (4.3-11.1) K/mcL RBC (4.19-5.50) M/mcL Hgb (12.9-16.9) g/dL Hct (37.5-50.1) % MCV (83.0-100.0) fL MCH (28.0-33.3) pg MCHC (31.6-35.5) g/dL RDW (11.5-14.5) % Plt Count (140-400) K/mcL MPV (9.4-12.4) fL Immature Gran % (0-4) % Seg Neutrophils % % Lymphocytes % % Monocytes % % Eosinophils % % Basophils % % Neutrophils # (1.6-8.9) K/mcL Lymphocytes # (0.6-4.6) K/mcL Monocytes # (0.0-1.3) K/mcL Eosinophils # (0.0-0.6) K/mcL Basophils # (0.0-0.2) K/mcL ESR (0-10) mm/hr PT (9.4-12.1) Seconds INR Sodium 136 (136-145) mEq/L Potassium 3.3 L (3.5-4.5) mEq/L Chloride 106 (98-109) mEq/L Carbon Dioxide 16 L (19-29) mEq/L BUN 19 (8-26) mg/dL Creatinine 2.45 H (0.72-1.25) mg/dL Est GFR ( Amer) 31 L (> 60) Est GFR (Non-Af Amer) 26 L (> 60) BUN/Creatinine Ratio 8 (6-26) Glucose 102 H (70-99) mg/dL Calculated Osmolality 284 (280-300) Lactic Acid 0.7 (0.5-2.2) mmol/L Calcium 8.9 (8.6-10.8) mg/dL Total Bilirubin 1.5 H (0.2-1.2) mg/dL AST 13 (5-34) Units/L ALT 7 (0-55) Units/L Alkaline Phosphatase 113 (38-126) Units/L C-Reactive Protein 53 H (Less than 5) mg/L Serum Total Protein 7.1 (6.0-8.3) g/dL Albumin 2.6 L (3.5-5.0) g/dL Globulin 4.5 H (2.4-3.5) g/dL Albumin/Globulin Ratio 0.6 L (1.1-2.2)
[2017-08-31] MEDS ORDERED: Acetaminophen 325 MG TABLET PO PRN (00:08)
[2017-08-31] MEDS ORDERED: Naloxone 0.4 MG/ML INJ IVP PRN (00:08)
[2017-08-31] MEDS ORDERED: *HR* Warfarin 7.5 MG TABLET PO SCH (00:15)
[2017-08-31] MEDS: Lisinopril 20 MG TABLET PO SCH ×2 (02:20→08:44)
[2017-08-31] MEDS: amLODIPine 5 MG TABLET PO SCH ×3 (02:20→20:18)
[2017-08-31] MEDS: *HR* Digoxin 0.125 MG TABLET PO SCH (02:20)
[2017-08-31] MEDS: cloNIDine HCl 0.1 MG TABLET PO SCH ×4 (02:21→20:17)
[2017-08-31] MEDS: Aspirin Enteric Coated 81 MG Tablet PO SCH ×2 (02:21→08:44)
[2017-08-31] MEDS ORDERED: Dextrose Gel 15 GM PO PRN ×2 (02:51)
[2017-08-31] MEDS ORDERED: D5% in Water 1,000 ML IVC PRN (02:51)
[2017-08-31] MEDS ORDERED: *HR* Dextrose 50 % in Water (Syg) 50 ML SYRINGE IVP PRN (02:51)
[2017-08-31] MEDS: *HR* Morphine 2 MG/ML SYRINGE IVP PRN (03:17)
[2017-08-31] MEDS: 0.9 % Sodium Chloride 1,000 ML IVC SCH ×2 (03:17→20:23)
--- NOTE | 2017-08-31 03:34 | Internal Med History&Physical ---
Date of Encounter: 08/31/17 Time of Encounter: 02:50 Assessment and Plan (1) Cellulitis Current visit: Yes Status: Acute Acute cellulitis of right hand and right forearm - secondary to trauma Continue empiric IV Zosyn, IV vancomycin Cultures - pending CT hand - no gas identified, subcutaneous edema compatible with cellulitis WBC - 11.2 Orthopedic consult - Dr. Vazquez will see patient in a.m. Cardiac telemetry, labs in a.m., monitor closely Qualifiers: Site of cellulitis: extremity Site of cellulitis of extremity: upper extremity Laterality: right Qualified Code(s): L03.113 - Cellulitis of right upper limb (2) Type 2 diabetes mellitus Current visit: No Status: Chronic Type 2 diabetes mellitus, insulin-dependent, hyperglycemia Continue insulin sliding scale, glucose checks, Levemir Qualifiers: Diabetes mellitus complication status: with kidney complications Diabetes mellitus complication detail: with chronic kidney disease Diabetes mellitus intermediate insulin use: with terminal computer operator use Chronic kidney disease stage: stage 4 (severe) Qualified Code(s): E11.22 - Type 2 diabetes mellitus with diabetic chronic kidney disease; N18.4 - Chronic kidney disease, stage 4 (severe); Z79.4 - nursing home (current) use of insulin (3) HTN (hypertension) Current visit: No Status: Chronic Essential hypertension, controlled, monitor Continue home dose of Coreg, amlodipine and lisinopril Qualifiers: Hypertension type: essential hypertension Qualified Code(s): I10 - Essential (primary) hypertension (4) CAD (coronary artery disease) Current visit: No Status: Chronic Coronary artery disease status post CABG, stable Continue aspirin, Lipitor Qualifiers: Coronary Disease-Associated Artery/Lesion type: redding artery [place] vs. transplanted heart: redding heart Associated angina: without angina Qualified Code(s): I25.10 - Atherosclerotic heart disease of redding coronary artery without angina pectoris (5) Chronic renal disease, stage III Current visit: Yes Status: Chronic Chronic kidney disease stage III - creatinine seems to be slightly higher than baseline Repeat labs in a.m. Nephrology consult if needed (6) A-fib Current visit: Yes Status: Chronic Chronic A. fib, rate controlled Continue home dose of Coumadin, continue home dose of carvedilol Pharmacy to dose Coumadin Qualifiers: Atrial fibrillation type: chronic Qualified Code(s): I48.2 - Chronic atrial fibrillation (7) Tobacco abuse Current visit: Yes Status: Chronic Patient states he smokes about half pack of cigarettes daily and has been smoking for almost 50 years Counseled about cessation, nicotine patch (8) DVT prophylaxis Current visit: Yes Status: Acute Continue home dose of Coumadin Internal Medicine - H&P: HPI Chief complaint: Right hand swelling Admitted From: Emergency Dept Plans for Post Hospital Care: Home History of present illness: Mr. Holly is a 77 year old male with past medical history of atrial fibrillation, cancer, diabetes, hypertension, renal disease, coronary artery disease status post CABG and status post left nephrectomy for renal cell cancer. Patient presents to the ED with complaints of right hand pain and swelling. Examined in the room. Patient is awake and alert. Not in any distress. Able to provide all history. He is hard of hearing. No family members at bedside. Patient states that his hand was accidentally slammed in between a car door. This happened about one week ago. He states he has had pain and swelling ever since then, but over the past 2 days the swelling and pain has worsened. He also complains of redness and the swelling seems to be moving up to his right forearm. Patient states he is unable to flex his fingers of the right hand. Symptoms are aggravated when he tries to move his right hand. No alleviating factors. Patient denies chest pain or fullness of breath or palpitation. Denies fever or vomiting or abdominal pain or diarrhea. No other acute complaints. No other associated symptoms. Initial workup in the ED is significant for slightly elevated white count and elevated creatinine. CT of the hand reveals subcutaneous edema compatible with cellulitis. Patient is being admitted for cellulitis of his right hand. He will need IV antibiotics and IV fluids. Orthopedics has been consulted from the ED. Patient has been explained about his condition and plan of care in detail. He understood and agreed. No unanswered questions. Past Med Surg Social Fam HX - Past Medical History Medical history: atrial fibrillation, cancer, diabetes, hypertension, renal disease, other Psychiatric history: no psych history - Past Surgical History Surgical History: coronary bypass (CABG) (3-vessel ), other (left nephrectomy) - Social History Smoking Status: Current every day smoker Smokeless Tobacco Status: No Alcohol use: none Drug use: none - Family History Father Living Status: Hx Family Cancer: Yes (Pancreatic) Mother Living Status: Hx Family Cardiac Disorders: Yes Internal Medicine - H&P: Meds Aspirin [Lo-Dose Aspirin EC] 81 mg PO DAILY 01/26/17 [History] Carvedilol [Coreg] 3.125 mg PO BID 01/26/17 [History] CloNIDine HCl [Kapvay] 0.1 mg PO TID 01/26/17 [History] Digoxin [Lanoxin] 0.125 mg PO Q48H 01/26/17 [History] Furosemide [Lasix] 20 mg PO BID 01/26/17 [History] Insulin Glargine [Lantus] 55 unit SQ QAM 01/26/17 [History] Insulin Regular, Human [Novolin R] 2 - 10 unit SQ TIDWM 01/26/17 [History] Lisinopril [Lisinopril] 40 mg PO QAM 01/26/17 [History] Omeprazole [PriLOSEC] 20 mg PO QAM 01/26/17 [History] Sertraline [Zoloft] 50 mg PO HS 01/26/17 [History] Simvastatin [Simvastatin] 10 mg PO HS 01/26/17 [History] Warfarin [Coumadin] 5 mg PO Q48H 01/26/17 [History] Warfarin [Coumadin] 7.5 mg PO Q48H 01/26/17 [History] amLODIPine [Norvasc] 5 mg PO BID 01/26/17 [History] Amoxicillin 875 mg PO BID #20 tablet 07/20/17 [Rx] DiphenhydraMINE [Benadryl] 25 mg PO Q8HR PRN #20 capsule 07/20/17 [Rx] Jeferson/Poly/HC *EAR* SUSP [Cortisporin *EAR* SUSP] 4 drop RIGHT EAR QID 7 Days drops.susp 07/20/17 [Rx] Mupirocin [Bactroban Oint] 1 appl TP BID 7 Days tube 08/28/17 [Rx] cephALEXin [Keflex] 500 mg PO QID #40 capsule 08/28/17 [Rx] 3 Allergy/AdvReac Type Severity Reaction Status Date / Time No Known Allergies Allergy Verified 08/30/17 17:58 All Systems PM: A 10-system review of systems was performed and is negative for pertinent findings except as documented above in the HPI. - Constitutional Constitutional: no chills, no fatigue, no fever(s), no weakness - EENT Eyes: no blurry vision - Cardiovascular Cardiovascular ROS IM: no chest pain, no diaphoresis, no dyspnea, no dyspnea on exertion, no edema, no lightheadedness, no orthopnea, no palpitations, no syncope - Respiratory Respiratory: no cough, no dyspnea, no hemoptysis, no dyspnea on exertion, no wheezing - Gastrointestinal Gastrointestinal: no abdominal pain, no bloating, no cramping, no diarrhea, no hematemesis, no hematochezia, no melena, no nausea, no vomiting - Genitourinary Genitourinary ROS male: no dysuria - Musculoskeletal Additional comments: Right arm and right hand swelling and tenderness. Unable to flex fingers of right hand - Integumentary Integumentary IM: erythema (Right forearm and right hand) - Neurological Neurological ROS: no abnormal gait, no confusion, no dizziness, no loss of vision, no numbness, no tingling - Constitutional Vitals: Temp Pulse Resp BP Pulse Ox 98.1 F 68 19 194/73 91 08/31/17 02:34 08/31/17 02:34 08/31/17 02:34 08/31/17 02:34 08/31/17 02:34 General appearance: Present: cooperative, A&O X 3, pleasant, no acute distress, answers questions appropriately Exam: Patient is hard of hearing - Head Head exam: Present: atraumatic - Eye Eye exam: Present: EOMI - ENT ENT exam: Present: mucous membranes moist - Respiratory Respiratory exam: Present: CTAB. Absent: rales, rhonchi, wheezes, tachypnea - Cardiovascular Cardiovascular exam: Present: RRR, +S1, +S2 - GI/Abdominal GI/Abdominal exam: Present: soft. Absent: distended, firm, guarding, tenderness - Extremities Exam Extremities exam: Present: radial pulses palpable and symmetrical. Absent: calf tenderness, cyanotic, pedal edema Additional comments: Right hand and forearm swelling and tenderness, with mild erythema. There is diffuse swelling of all fingers of the right hand. Limited range of motion of fingers and wrist on the right side. Significant tenderness with any movement. - Neurological Exam Neurological exam: Present: alert, oriented X3, no focal deficits. Absent: facial droop, speech deficit Internal Med - H&P Results - Labs CBC & Chem 7: 08/30/17 19:48 08/30/17 19:48
[2017-08-31] MEDS: Famotidine 20 MG/2 ML VIAL IVP SCH (05:46)
[2017-08-31] MEDS ORDERED: *HR* Heparin 5,000 UNIT/ML VIAL SQ SCH (06:00)
[2017-08-31] MEDS ORDERED: Insulin LISPRO 300 UNITS/3 ML VIAL SQ SCH (06:00)
[2017-08-31] MEDS ORDERED: Vancomycin 1,000 MG in D5% in Water 250 ML IVPB SCH (06:00)
[2017-08-31 07:43] LABS: Basophils # 0.1 K/mcL (0.0-0.2); Basophils % 0.6 %; Eosinophils # 0.1 K/mcL (0.0-0.6); Eosinophils % 1.2 %; Hematocrit 29.5 % (37.5-50.1); Hemoglobin 10.1 g/dL (12.9-16.9); Immature Granulocytes % 0.3 % (0-4); Lymphocytes # 1.5 K/mcL (0.6-4.6); Lymphocytes % 16.9 %; Mean Corpuscular HGB Conc 34.2 g/dL (31.6-35.5); Mean Corpuscular Volume 90.5 fL (83.0-100.0); Mean Platelet Volume 9.1 fL (9.4-12.4); Monocytes # 0.7 K/mcL (0.0-1.3); Monocytes % 7.6 %; Neutrophils # 6.6 K/mcL (1.6-8.9); Platelet Count 166 K/mcL (140-400); Red Blood Count 3.26 M/mcL (4.19-5.50); Red Cell Distribution Width 13.1 % (11.5-14.5); Segmented Neutrophils % 73.4 %
[2017-08-31 07:52] LABS: INR 1.8
[2017-08-31 07:56] LABS: Calcium 8.4 mg/dL (8.6-10.8); Magnesium 1.7 mg/dL (1.6-2.6); Potassium 3.2 mEq/L (3.5-4.5)
[2017-08-31 08:22] LABS: Hemoglobin A1C 5.3 %
[2017-08-31] MEDS: Nicotine 21 MG PATCH.TD24 TD SCH (08:44)
[2017-08-31] MEDS: Piperacillin/Tazobactam 3.375 GM in D5% in Water (Mini-Bag+) 100 ML IVPB SCH ×2 (08:45→20:16)
[2017-08-31] MEDS: Furosemide 40 MG TABLET PO SCH ×2 (08:45→20:17)
--- NOTE | 2017-08-31 08:51 | Orthopedic Consult Note ---
Date of Encounter: 08/31/17 Time of Encounter: 08:48 Assessment and Plan (1) Cellulitis Current Visit: Yes Status: Acute I did discuss in detail the diagnosis with the patient which is likely soft tissue infection to the right hand. He is on empiric IV antibiotics per the primary team. I agree with this. I also recommend aggressive elevation in the form of an IV pole sling which he was placed in. He is scheduled to get an MRI today which we will look for a deep abscess. I will follow the patient with you clinically. No plans for surgical debridement today. He can eat. Qualifiers: Site of cellulitis: extremity Site of cellulitis of extremity: upper extremity Laterality: right Qualified Code(s): L03.113 - Cellulitis of right upper limb History of Present Illness HPI: Mr. Holly is a 77 year old multiply medically comorbid male who comes in for evaluation of his right hand. He said about a week ago he says it was slammed in a car door. He says this caused significant swelling and bruising the latter of which has resolved. He says about 2 days ago he started noticing recurrent swelling associated with redness and worsening pain and went to an urgent care and was placed on Keflex. Due to persistent pain and swelling he went to the ER last night where he was admitted for cellulitis. I was consulted to assist in the evaluation and management of this patient. My evaluation the patient complains of pain isolated to the right hand, wrist, forearm, and elbow. The pain is worse with movement and much better with rest and elevation. The pain is aching. He denies any new numbness, tingling, or any other associated signs or symptoms. No other modifying factors. He denies any feelings of illness. Past Med Surg Social Fam HX - Past Medical History Medical history: atrial fibrillation, cancer, diabetes, hypertension, renal disease, other Psychiatric history: no psych history - Past Surgical History Surgical History: coronary bypass (CABG), other - Social History Smoking Status: Current every day smoker Smokeless Tobacco Status: No Alcohol use: none Drug use: none - Family History Father Living Status: Hx Family Cancer: Yes (Pancreatic) Mother Living Status: Hx Family Cardiac Disorders: Yes Medications and Allergies Aspirin [Lo-Dose Aspirin EC] 81 mg PO DAILY 01/26/17 [History] Carvedilol [Coreg] 3.125 mg PO BID 01/26/17 [History] CloNIDine HCl [Kapvay] 0.1 mg PO TID 01/26/17 [History] Digoxin [Lanoxin] 0.125 mg PO Q48H 01/26/17 [History] Furosemide [Lasix] 20 mg PO BID 01/26/17 [History] Insulin Glargine [Lantus] 55 unit SQ QAM 01/26/17 [History] Insulin Regular, Human [Novolin R] 2 - 10 unit SQ TIDWM 01/26/17 [History] Lisinopril [Lisinopril] 40 mg PO QAM 01/26/17 [History] Omeprazole [PriLOSEC] 20 mg PO QAM 01/26/17 [History] Sertraline [Zoloft] 50 mg PO HS 01/26/17 [History] Simvastatin [Simvastatin] 10 mg PO HS 01/26/17 [History] Warfarin [Coumadin] 5 mg PO Q48H 01/26/17 [History] Warfarin [Coumadin] 7.5 mg PO Q48H 01/26/17 [History] amLODIPine [Norvasc] 5 mg PO BID 01/26/17 [History] Amoxicillin 875 mg PO BID #20 tablet 07/20/17 [Rx] DiphenhydraMINE [Benadryl] 25 mg PO Q8HR PRN #20 capsule 07/20/17 [Rx] Jeferson/Poly/HC *EAR* SUSP [Cortisporin *EAR* SUSP] 4 drop RIGHT EAR QID 7 Days drops.susp 07/20/17 [Rx] Mupirocin [Bactroban Oint] 1 appl TP BID 7 Days tube 08/28/17 [Rx] cephALEXin [Keflex] 500 mg PO QID #40 capsule 08/28/17 [Rx] 3 Allergy/AdvReac Type Severity Reaction Status Date / Time No Known Allergies Allergy Verified 08/30/17 17:58 All Systems Reviewed: Constitutional and musculoskeletal systems were reviewed and are negative unless otherwise stated in history of present illness. Physical Exam - Constitutional Vitals: Temp Pulse Resp BP Pulse Ox 98.1 F 51 16 183/77 91 08/31/17 07:36 08/31/17 07:36 08/31/17 07:36 08/31/17 07:36 08/31/17 07:36 CONSTITUTIONAL -Vitals reviewed -The patient is well developed, well nourished, well groomed PSYCHIATRIC -Fully alert and oriented -Pleasant mood RIGHT UPPER EXTREMITY Inspection shows that the skin and the soft tissue envelope are intact with the exception of 2 small scabs on the dorsal aspect of the hand. Generalized swelling and edema mostly localized to the hand and wrist area. There is no overlying erythema. Diffuse tenderness to palpation about the hand wrist forearm and elbow without localizing to anyone anatomic area. No other tenderness is noted. He has painless passive motion of the shoulder. Motion of the elbow wrist and digits cause pain and this limits the motion. I can range the elbow from 45 degrees to 90 without significant pain through this mid arc, however be on the seat does have diffuse pain. Similarly wrist motion is from about 45 degrees of flexion to extension, painless within this mid arc but more painful beyond. Similarly with the digits he can come down to half a fist which is painless, however but beyond this does cause significant pain. He can grossly actively flex and extend the digits. The fingertips are all grossly sensate and well-perfused, and the radial artery pulse is 2+. Diagnostic Imaging: I did personally review and interpret x-rays and CT scan of the right hand which does not show any fractures. Generalized arthritic changes noted. No definite abscess seen on the CT scan, however this is a noncontrast study of fairly poor quality. Results - Labs Result Diagrams: 08/31/17 07:22 08/31/17 07:22 Labs: Abnormal lab results RBC 3.26 M/mcL (4.19-5.50) L 08/31/17 07:22 Hgb 10.1 g/dL (12.9-16.9) L 08/31/17 07:22 Hct 29.5 % (37.5-50.1) L 08/31/17 07:22 MPV 9.1 fL (9.4-12.4) L 08/31/17 07:22 ESR 113 mm/hr (0-10) H 08/30/17 19:48 PT 20.0 Seconds (9.4-12.1) H 08/31/17 07:22 Sodium 134 mEq/L (136-145) L 08/31/17 07:22 Potassium 3.2 mEq/L (3.5-4.5) L 08/31/17 07:22 Carbon Dioxide 17 mEq/L (19-29) L 08/31/17 07:22 Creatinine 2.45 mg/dL (0.72-1.25) H 08/31/17 07:22 Est GFR ( Amer) 31 (> 60) L 08/31/17 07:22 Est GFR (Non-Af Amer) 26 (> 60) L 08/31/17 07:22 POC Glucose 100 (58-89) H 08/31/17 05:39 Calcium 8.4 mg/dL (8.6-10.8) L 08/31/17 07:22 Total Bilirubin 1.5 mg/dL (0.2-1.2) H 08/30/17 19:48 C-Reactive Protein 53 mg/L (Less than 5) H 08/30/17 19:48 Albumin 2.6 g/dL (3.5-5.0) L 08/30/17 19:48 Globulin 4.5 g/dL (2.4-3.5) H 08/30/17 19:48 Albumin/Globulin Ratio 0.6 (1.1-2.2) L 08/30/17 19:48 Triglycerides 157 mg/dL (< 150) H 08/31/17 07:22 LDL Cholesterol, Calc 105 mg/dL (0-99) H 08/31/17 07:22 VLDL Cholesterol, Calc 31 mg/dL (< 31) H 08/31/17 07:22 HDL Cholesterol 27 mg/dL (40-59) L 08/31/17 07:22 Cholesterol/HDL Ratio 6.0 (0-4.9) H 08/31/17 07:22 H & H 08/31/17 Range/Units 07:22 Hgb 10.1 L (12.9-16.9) g/dL Hct 29.5 L (37.5-50.1) % All other labs normal. Consult Discharge Plan - Plan Referrals: Brenton Kruger DO [Primary Care Provider] -
[2017-08-31] MEDS ORDERED: NON-FORMULARY MEDICATION 1 EACH EACH (Insulin Glargine [Lantus] 55 UNIT) SQ SCH (09:00)
[2017-08-31] MEDS: Insulin DETEMIR 100 UNIT/ML X5UNITS SQ SCH (09:25)
[2017-08-31] MEDS ORDERED: Vancomycin 1,000 MG in D5% in Water 250 ML IVPB ONE (11:00)
[2017-08-31 11:06] LABS: Bilirubin,Urine Negative (Negative); Blood,Urine Moderate (Negative); Clarity,Urine Cloudy (Clear); Color,Urine Yellow (Yellow); Glucose,Urine (UA) 100 mg/dL (Normal); Ketones,Urine Negative (Negative); Leukocyte Esterase,Urine Negative (Negative); Nitrite,Urine Negative (Negative); Protein,Urine >=300 mg/dL (Neg-Trace); Specific Gravity,Urine 1.013 (1.010-1.025); Urobilinogen,Urine Normal (Normal)
[2017-08-31 11:10] LABS: Bacteria,Urine None Seen per hpf (None-Few); Hyaline Casts,Urine None Seen per lpf (None-Few); RBC,Urine 15-30 per hpf (0-3); Squamous Epithelial Cell,Urine Many per lpf (None-Few)
--- NOTE | 2017-08-31 12:13 | Event Note ---
Date of Encounter: 08/31/17 Time of Encounter: 12:10 Patient is a 77y/o male admitted for right hand cellulitis. He was evaluated by orthopedic surgery and MRI is ordered. No surgical intervention at this time pt to continue empiric IV abx continue home medications pt reports of better control of his pain.
--- NOTE | 2017-08-31 12:43 | Electrocardiograph Report ---
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
[2017-08-31] MEDS: Insulin LISPRO 300 UNITS/3 ML VIAL SQ SCH ×3 (14:05→20:52)
[2017-08-31] MEDS ORDERED: Warfarin perPT PO PRN (18:00)
[2017-08-31] MEDS ORDERED: *HR* Warfarin 5 MG TABLET PO ONE (18:00)
[2017-09-01] MEDS: 0.9 % Sodium Chloride 1,000 ML IVC SCH ×3 (01:22→21:33)
[2017-09-01] MEDS: *HR* Morphine 2 MG/ML SYRINGE IVP PRN (04:28)
[2017-09-01] MEDS: Famotidine 20 MG/2 ML VIAL IVP SCH (05:29)
[2017-09-01 06:06] LABS: INR 2.2; Prothrombin Time 24.3 Seconds (9.4-12.1)
[2017-09-01 06:13] LABS: Basophils # 0.1 K/mcL (0.0-0.2); Basophils % 0.6 %; Eosinophils # 0.2 K/mcL (0.0-0.6); Eosinophils % 2.5 %; Hematocrit 28.3 % (37.5-50.1); Hemoglobin 10.1 g/dL (12.9-16.9); Immature Granulocytes % 0.3 % (0-4); Lymphocytes # 1.4 K/mcL (0.6-4.6); Lymphocytes % 15.9 %; Mean Corpuscular HGB Conc 35.7 g/dL (31.6-35.5); Mean Corpuscular Hemoglobin 31.7 pg (28.0-33.3); Mean Corpuscular Volume 88.7 fL (83.0-100.0); Monocytes # 0.7 K/mcL (0.0-1.3); Monocytes % 7.5 %; Neutrophils # 6.5 K/mcL (1.6-8.9); Platelet Count 177 K/mcL (140-400); Red Blood Count 3.19 M/mcL (4.19-5.50); Red Cell Distribution Width 13.2 % (11.5-14.5); Segmented Neutrophils % 73.2 %
[2017-09-01 06:14] LABS: Calcium 8.4 mg/dL (8.6-10.8); Magnesium 1.6 mg/dL (1.6-2.6); Phosphorous 3.6 mg/dL (2.3-4.7); Potassium 3.5 mEq/L (3.5-4.5)
--- NOTE | 2017-09-01 07:21 | Orthopedics Progress Note ---
Date of Encounter: 09/01/17 Time of Encounter: 07:20 - Assessment and Plan (1) Cellulitis Current Visit: Yes Status: Acute I did discuss in detail the diagnosis with the patient which is likely soft tissue infection to the right hand. He is on empiric IV antibiotics per the primary team. I agree with this. I also recommend aggressive elevation in the form of an IV pole sling which he was placed in. He is scheduled to get an MRI today which we will look for a deep abscess. I will follow the patient with you clinically. No plans for surgical debridement today. He can eat. Qualifiers: Site of cellulitis: extremity Site of cellulitis of extremity: upper extremity Laterality: right Qualified Code(s): L03.113 - Cellulitis of right upper limb Subjective Interval history: S: Resting in bed comfortably. Slept well last night. Was in the IV pole sling all day and all night. O: Afebrile and his vital signs are stable Near-complete resolution of the edema with the IV pole sling Minimal tenderness to the dorsal hand area Improved motion of the elbow wrist and digits The patient can actively flex and extend all digits, extend the thumb, cross the index and long fingers, make an okay sign, and oppose the thumb. The fingertips are all grossly sensate and well-perfused, and the radial artery pulse is 2+. A: Significant improvement of the pain and the swelling with elevation P: Continue elevation and antibiotics per the primary team. Orthopedically stable. Recommend follow-up in 1 week for clinical reevaluation or sooner if needed. He will call the office sooner for any new or worsening concerns. Objective Vital signs: Vital Signs Temp Pulse Resp BP Pulse Ox 09/01/17 04:02 98.0 F 67 16 166/64 83 09/01/17 00:28 98.3 F 71 17 155/57 90 08/31/17 19:37 98.4 F 62 18 182/77 92 08/31/17 16:40 98.0 F 65 18 171/66 95 08/31/17 11:24 98.3 F 54 18 155/60 92 08/31/17 07:36 98.1 F 51 16 183/77 91 Intake and Output 08/31/17 08/31/17 09/01/17 15:59 23:59 07:59 Intake Total 250 / 250 1000 / 1000 100 / 100 Output Total 950 / 950 600 / 600 500 / 500 Balance -700 / -700 400 / 400 -400 / -400 Intake: IV Fluids 100 / 100 1000 / 1000 100 / 100 0.9 % Sodium Chloride 1,000 ML 1000 / 1000 @ 80 mls/hr IVC .[id number] [facility] Rx #:[id number] Zosyn 3.375 GM In Dextrose 5% ( 100 / 100 100 / 100 Minibag+) 100 ML 100 ML @ 25 mls/hr IVPB Q12H [facility] Rx#: [id number] Oral 150 / 150 Output: Urine 950 / 950 600 / 600 500 / 500 Other: Meal Lunch Percent of Meal Consumed 40% Weight 82.3 kg Blood Glucose* 161 108 Patient Weight 09/01/17 23:59 Weight 82.3 kg - Labs CBC & BMP: 09/01/17 05:45 09/01/17 05:45 Labs: Abnormal lab results RBC 3.19 M/mcL (4.19-5.50) L 09/01/17 05:45 Hgb 10.1 g/dL (12.9-16.9) L 09/01/17 05:45 Hct 28.3 % (37.5-50.1) L 09/01/17 05:45 MCHC 35.7 g/dL (31.6-35.5) H 09/01/17 05:45 MPV 9.0 fL (9.4-12.4) L 09/01/17 05:45 ESR 113 mm/hr (0-10) H 08/30/17 19:48 PT 24.3 Seconds (9.4-12.1) H 09/01/17 05:45 Chloride 111 mEq/L (98-109) H 09/01/17 05:45 Carbon Dioxide 17 mEq/L (19-29) L 09/01/17 05:45 Creatinine 2.58 mg/dL (0.72-1.25) H 09/01/17 05:45 Est GFR ( Amer) 29 (> 60) L 09/01/17 05:45 Est GFR (Non-Af Amer) 24 (> 60) L 09/01/17 05:45 Glucose 101 mg/dL (70-99) H 09/01/17 05:45 POC Glucose 109 (58-89) H 08/31/17 16:42 Calcium 8.4 mg/dL (8.6-10.8) L 09/01/17 05:45 Total Bilirubin 1.5 mg/dL (0.2-1.2) H 08/30/17 19:48 C-Reactive Protein 53 mg/L (Less than 5) H 08/30/17 19:48 Albumin 2.6 g/dL (3.5-5.0) L 08/30/17 19:48 Globulin 4.5 g/dL (2.4-3.5) H 08/30/17 19:48 Albumin/Globulin Ratio 0.6 (1.1-2.2) L 08/30/17 19:48 Triglycerides 157 mg/dL (< 150) H 08/31/17 07:22 LDL Cholesterol, Calc 105 mg/dL (0-99) H 08/31/17 07:22 VLDL Cholesterol, Calc 31 mg/dL (< 31) H 08/31/17 07:22 HDL Cholesterol 27 mg/dL (40-59) L 08/31/17 07:22 Cholesterol/HDL Ratio 6.0 (0-4.9) H 08/31/17 07:22 Urine Clarity Cloudy (Clear) A 08/31/17 10:44 Urine Protein >=300 mg/dL (Neg-Trace) H 08/31/17 10:44 Urine Glucose (UA) 100 mg/dL (Normal) H 08/31/17 10:44 Urine Blood Moderate (Negative) H 08/31/17 10:44 Urine Microscopic RBC 15-30 per hpf (0-3) H 08/31/17 10:44 Urine Microscopic WBC 5-15 per hpf (0-3) H 08/31/17 10:44 Ur Squamous Epith Cells Many per lpf (None-Few) H 08/31/17 10:44 Consult Discharge Plan - Plan Referrals: Brenton Kruger DO [Primary Care Provider] -
[2017-09-01] MEDS: Insulin LISPRO 300 UNITS/3 ML VIAL SQ SCH ×4 (08:21→21:31)
[2017-09-01] MEDS: Lisinopril 20 MG TABLET PO SCH (08:28)
[2017-09-01] MEDS: Furosemide 40 MG TABLET PO SCH ×2 (08:28→15:53)
[2017-09-01] MEDS: Nicotine 21 MG PATCH.TD24 TD SCH (08:28)
[2017-09-01] MEDS: amLODIPine 5 MG TABLET PO SCH ×2 (08:29→21:30)
[2017-09-01] MEDS: Aspirin Enteric Coated 81 MG Tablet PO SCH (08:29)
[2017-09-01] MEDS: Piperacillin/Tazobactam 3.375 GM in D5% in Water (Mini-Bag+) 100 ML IVPB SCH (08:29)
[2017-09-01] MEDS: cloNIDine HCl 0.1 MG TABLET PO SCH ×3 (08:29→21:30)
[2017-09-01] MEDS: Insulin DETEMIR 100 UNIT/ML X5UNITS SQ SCH (08:40)
[2017-09-01] MEDS ORDERED: cephALEXin 500 MG CAPSULE PO SCH (13:45)
[2017-09-01] MEDS ORDERED: Doxycycline 100 MG CAPSULE PO SCH (13:45)
[2017-09-01] MEDS: Ondansetron 4 MG/2 ML VIAL IVP PRN (17:37)
[2017-09-01] MEDS ORDERED: *HR* Warfarin 5 MG TABLET PO ONE (18:00)
[2017-09-01] MEDS ORDERED: Vancomycin (wt based) 1,000 MG VIAL IV SCH (20:00)
[2017-09-01] MEDS ORDERED: Vancomycin 1 EACH in D5% in Water 250 ML IVPB SCH (22:00)
[2017-09-02] MEDS: *HR* Digoxin 0.125 MG TABLET PO SCH (00:07)
[2017-09-02] MEDS ORDERED: Piperacillin/Tazobactam 3.375 GM in D5% in Water (Mini-Bag+) 100 ML IVPB SCH (06:00)
[2017-09-02 07:13] LABS: INR 2.4; Prothrombin Time 26.3 Seconds (9.4-12.1)
[2017-09-02 07:17] LABS: Basophils # 0.1 K/mcL (0.0-0.2); Basophils % 0.5 %; Eosinophils # 0.1 K/mcL (0.0-0.6); Eosinophils % 0.4 %; Hemoglobin 10.1 g/dL (12.9-16.9); Immature Granulocytes % 0.3 % (0-4); Lymphocytes # 0.9 K/mcL (0.6-4.6); Lymphocytes % 7.5 %; Mean Corpuscular HGB Conc 33.7 g/dL (31.6-35.5); Mean Corpuscular Hemoglobin 31.2 pg (28.0-33.3); Mean Corpuscular Volume 92.6 fL (83.0-100.0); Mean Platelet Volume 9.5 fL (9.4-12.4); Monocytes # 0.7 K/mcL (0.0-1.3); Monocytes % 6.3 %; Neutrophils # 9.8 K/mcL (1.6-8.9); Platelet Count 179 K/mcL (140-400); Red Blood Count 3.24 M/mcL (4.19-5.50); Red Cell Distribution Width 13.5 % (11.5-14.5)
[2017-09-02 07:22] LABS: Calcium 8.4 mg/dL (8.6-10.8); Potassium 3.6 mEq/L (3.5-4.5)
--- NOTE | 2017-09-02 08:00 | Orthopedics Progress Note ---
Date of Encounter: 09/02/17 Time of Encounter: 07:59 - Assessment and Plan (1) Cellulitis Current Visit: Yes Status: Acute I did discuss in detail the diagnosis with the patient which is likely soft tissue infection to the right hand. He is on empiric IV antibiotics per the primary team. I agree with this. I also recommend aggressive elevation in the form of an IV pole sling which he was placed in. He is scheduled to get an MRI today which we will look for a deep abscess. I will follow the patient with you clinically. No plans for surgical debridement today. He can eat. Qualifiers: Site of cellulitis: extremity Site of cellulitis of extremity: upper extremity Laterality: right Qualified Code(s): L03.113 - Cellulitis of right upper limb Subjective Interval history: S: Resting in bed comfortably. Slept well last night. Was in the IV pole sling all day and all night. O: Afebrile and his vital signs are stable Near-complete resolution of the edema with the IV pole sling Minimal tenderness to the dorsal hand area Improved motion of the elbow wrist and digits The patient can actively flex and extend all digits, extend the thumb, cross the index and long fingers, make an okay sign, and oppose the thumb. The fingertips are all grossly sensate and well-perfused, and the radial artery pulse is 2+. A: Significant improvement of the pain and the swelling with elevation P: Continue elevation and antibiotics per the primary team. Orthopedically stable. Recommend follow-up in 1 week for clinical reevaluation or sooner if needed. He will call the office sooner for any new or worsening concerns. Objective Vital signs: Vital Signs Temp Pulse Resp BP Pulse Ox 09/02/17 07:36 98.0 F 74 21 173/71 91 09/02/17 03:45 97.6 F 83 23 176/71 91 09/01/17 23:11 98.2 F 98 25 180/79 94 09/01/17 20:21 98.1 F 84 24 184/80 96 09/01/17 16:04 98.2 F 70 16 190/85 96 09/01/17 11:48 98.1 F 66 16 163/80 92 09/01/17 08:30 98.2 F 68 16 172/66 92 Intake and Output 09/01/17 09/01/17 09/02/17 15:59 23:59 07:59 Intake Total 1000 / 1000 1000 / 1000 Output Total 180 / 180 Balance 820 / 820 1000 / 1000 Intake: IV Fluids 1000 / 1000 1000 / 1000 0.9 % Sodium Chloride 1,000 ML 1000 / 1000 1000 / 1000 @ 80 mls/hr IVC .[id number] ROQUE Rx #:[id number] Output: Urine 180 / 180 Other: # Urine Diapers 1 1 Weight 83.2 kg Blood Glucose* 141 128 180 Patient Weight 09/02/17 23:59 Weight 83.2 kg - Labs CBC & BMP: 09/02/17 06:09 09/02/17 06:09 Labs: Abnormal lab results WBC 11.5 K/mcL (4.3-11.1) H 09/02/17 06:09 RBC 3.24 M/mcL (4.19-5.50) L 09/02/17 06:09 Hgb 10.1 g/dL (12.9-16.9) L 09/02/17 06:09 Hct 30.0 % (37.5-50.1) L 09/02/17 06:09 Neutrophils # 9.8 K/mcL (1.6-8.9) H 09/02/17 06:09 ESR 113 mm/hr (0-10) H 08/30/17 19:48 PT 26.3 Seconds (9.4-12.1) H 09/02/17 06:09 Sodium 135 mEq/L (136-145) L 09/02/17 06:09 Chloride 110 mEq/L (98-109) H 09/02/17 06:09 Carbon Dioxide 14 mEq/L (19-29) L 09/02/17 06:09 Creatinine 2.46 mg/dL (0.72-1.25) H 09/02/17 06:09 Est GFR ( Amer) 31 (> 60) L 09/02/17 06:09 Est GFR (Non-Af Amer) 26 (> 60) L 09/02/17 06:09 Glucose 162 mg/dL (70-99) H 09/02/17 06:09 POC Glucose 128 (58-89) H 09/01/17 20:38 Calcium 8.4 mg/dL (8.6-10.8) L 09/02/17 06:09 Total Bilirubin 1.5 mg/dL (0.2-1.2) H 08/30/17 19:48 C-Reactive Protein 53 mg/L (Less than 5) H 08/30/17 19:48 Albumin 2.6 g/dL (3.5-5.0) L 08/30/17 19:48 Globulin 4.5 g/dL (2.4-3.5) H 08/30/17 19:48 Albumin/Globulin Ratio 0.6 (1.1-2.2) L 08/30/17 19:48 Triglycerides 157 mg/dL (< 150) H 08/31/17 07:22 LDL Cholesterol, Calc 105 mg/dL (0-99) H 08/31/17 07:22 VLDL Cholesterol, Calc 31 mg/dL (< 31) H 08/31/17 07:22 HDL Cholesterol 27 mg/dL (40-59) L 08/31/17 07:22 Cholesterol/HDL Ratio 6.0 (0-4.9) H 08/31/17 07:22 Urine Clarity Cloudy (Clear) A 08/31/17 10:44 Urine Protein >=300 mg/dL (Neg-Trace) H 08/31/17 10:44 Urine Glucose (UA) 100 mg/dL (Normal) H 08/31/17 10:44 Urine Blood Moderate (Negative) H 08/31/17 10:44 Urine Microscopic RBC 15-30 per hpf (0-3) H 08/31/17 10:44 Urine Microscopic WBC 5-15 per hpf (0-3) H 08/31/17 10:44 Ur Squamous Epith Cells Many per lpf (None-Few) H 08/31/17 10:44 Consult Discharge Plan - Plan Referrals: Brenton Kruger DO [Primary Care Provider] -
[2017-09-02] MEDS: Lisinopril 20 MG TABLET PO SCH (08:42)
[2017-09-02] MEDS: Aspirin Enteric Coated 81 MG Tablet PO SCH (08:42)
[2017-09-02] MEDS: Furosemide 40 MG TABLET PO SCH (08:43)
[2017-09-02] MEDS: cloNIDine HCl 0.1 MG TABLET PO SCH (08:43)
[2017-09-02] MEDS: amLODIPine 5 MG TABLET PO SCH (08:43)
[2017-09-02] MEDS: Insulin LISPRO 300 UNITS/3 ML VIAL SQ SCH ×2 (08:44→12:42)
[2017-09-02] MEDS: Nicotine 21 MG PATCH.TD24 TD SCH (08:48)
[2017-09-02] MEDS: Insulin DETEMIR 100 UNIT/ML X5UNITS SQ SCH (08:50)
[2017-09-02 11:07] VITALS: BP 163/69
[2017-09-02] MEDS ORDERED: Doxycycline 100 MG CAPSULE PO SCH (12:15)
--- NOTE | 2017-09-02 13:16 | Discharge Summary ---
Date of Encounter: 09/02/17 Time of Encounter: 11:45 - Discharge Diagnosis (1) Cellulitis Priority: Primary Status: Acute Qualifiers: Site of cellulitis: extremity Site of cellulitis of extremity: upper extremity Laterality: right Qualified Code(s): L03.113 - Cellulitis of right upper limb (2) A-fib Priority: Secondary Status: Chronic Qualifiers: Atrial fibrillation type: chronic Qualified Code(s): I48.2 - Chronic atrial fibrillation (3) Chronic renal disease, stage III Priority: Secondary Status: Chronic (4) DVT prophylaxis Priority: Secondary Status: Acute (5) HTN (hypertension) Priority: Secondary Status: Chronic Qualifiers: Hypertension type: essential hypertension Qualified Code(s): I10 - Essential (primary) hypertension (6) Tobacco abuse Priority: Secondary Status: Chronic (7) Type 2 diabetes mellitus Priority: Secondary Status: Chronic Qualifiers: Diabetes mellitus complication status: with kidney complications Diabetes mellitus complication detail: with chronic kidney disease Diabetes mellitus fpc insulin use: with termite treater helper use Chronic kidney disease stage: stage 4 (severe) Qualified Code(s): E11.22 - Type 2 diabetes mellitus with diabetic chronic kidney disease; N18.4 - Chronic kidney disease, stage 4 (severe); N18.4 - Chronic kidney disease, stage 4 (severe); N18.4 - Chronic kidney disease, stage 4 (severe); N18.4 - Chronic kidney disease, stage 4 (severe); Z79.4 - terminal manager (current) use of insulin; Z79.4 - senior care (current) use of insulin; Z79.4 - senior care (current) use of insulin; Z79.4 - senior care (current) use of insulin - Discharge Medications Prescriptions: cephALEXin [Keflex] 500 mg PO Q12H #24 capsule Doxycycline 100 mg PO BID #24 capsule Home Medications: Carvedilol [Coreg] 3.125 mg PO BID 01/26/17 [History] CloNIDine HCl [Kapvay] 0.1 mg PO BID 01/26/17 [History] Furosemide [Lasix] 40 mg PO QPM 01/26/17 [History] Insulin Glargine [Lantus] 55 unit SQ QAM 01/26/17 [History] Insulin Regular, Human [Novolin R] 2 - 10 unit SQ TIDWM 01/26/17 [History] Lisinopril 40 mg PO QAM 01/26/17 [History] Omeprazole [PriLOSEC] 20 mg PO QAM 01/26/17 [History] Sertraline [Zoloft] 50 mg PO HS 01/26/17 [History] Simvastatin 10 mg PO HS 01/26/17 [History] Warfarin [Coumadin] 5 mg PO Q48H 01/26/17 [History] Warfarin [Coumadin] 7.5 mg PO Q48H 01/26/17 [History] amLODIPine [Norvasc] 5 mg PO BID 01/26/17 [History] Mupirocin [Bactroban Oint] 1 appl TP BID 7 Days tube 08/28/17 [Rx] Furosemide [Lasix] 20 mg PO QAM 08/31/17 [History] Doxycycline 100 mg PO BID #24 capsule 09/02/17 [Rx] cephALEXin [Keflex] 500 mg PO Q12H #24 capsule 09/02/17 [Rx] Allergies/Adverse Reactions: 3 Allergy/AdvReac Type Severity Reaction Status Date / Time No Known Allergies Allergy Verified 08/30/17 17:58 Date of admission: 08/31/17 00:50 Primary care physician: Brenton Kruger Consults: 08/31/17 00:16 Consult for Pharmacy Education [CONS] Routine Reason for Consult: WARFARIN DOSING Call Completed: No Consult to Orthopedic Surgery [CONS] Routine Consulting Provider: [facility] Reason for Consult: CELLULITIS HAND Call Completed: Yes Discharging clinician: Pawel Sanford Anticipated date of discharge: 09/02/17 - Patient Status Disposition: Home, Self-Care Condition: Good Functional capacity at discharge: independent ambulation Overall status at discharge: patient is progressing back to baseline - Discharge Instructions Instructions: Cellulitis (DC) Follow Up With: Krystle Mcfarland CNP [Partnered Physician] - 09/08/17 1:00 pm Salvatore Yeager MD [Partnered Physician] - 09/08/17 8:30 am Forms: ED Satisfaction Letter - Diet and Activity Activity: increase activity as tolerated Diet: diabetic diet Hospital course: Mr. Holly is a 77 year old male patient with history of type 2 diabetes mellitus, hypertension, coronary artery disease, chronic kidney disease stage III, atrial fibrillation who was hospitalized here with cellulitis involving his right hand and forearm following a traumatic injury. He was treated with IV antibiotics and limb elevation with significant improvement in his symptoms. Orthopedics was consulted and helped manage patient's condition. He underwent MRI of the hand which did not show any abscess. At this time, patient is clinically stable for discharge home. He is currently advised to continue elevating his right upper extremity and to complete antibiotic course as prescribed. He will be discharged on cephalexin and doxycycline. He will follow up with orthopedics after discharge. - Time Spent with Patient Total time spent providing and/or coordinating discharge services: Less than 30 minutes (25 min) - Constitutional Vitals: Temp Pulse Resp BP Pulse Ox 98.0 F 83 20 163/69 90 09/02/17 11:06 09/02/17 11:06 09/02/17 11:06 09/02/17 11:06 09/02/17 11:06 General appearance: Present: cooperative, A&O X 3, pleasant, no acute distress, answers questions appropriately - Neck Neck exam general surgery: Present: supple, trachea midline. Absent: lymphadenopathy - Respiratory Respiratory exam: Present: CTAB. Absent: accessory muscle use, rales, rhonchi, wheezes - Cardiovascular Cardiovascular exam: Present: RRR, +S1, +S2. Absent: diastolic murmur, gallop, rubs, systolic murmur - GI/Abdominal GI/Abdominal exam: Present: normal bowel sounds, soft, no peritoneal signs. Absent: distended, tenderness - Extremities Exam Extremities exam: Present: warm, radial pulses palpable and symmetrical. Absent : calf tenderness, cyanotic, pedal edema Additional comments: Erythema and swelling of Right Hand and wrist has subsided. Good range of motion at right wrist and interphalangeal joints. - Neurological Exam Neurological exam: Present: alert, CN II-XII intact, oriented X3, no focal deficits. Absent: facial droop, speech deficit - Skin Skin exam: Present: dry, intact
[2017-09-02] MEDS ORDERED: Vancomycin 750 MG in D5% in Water 250 ML IVPB SCH (14:00)
[2017-09-02] MEDS ORDERED: FLUARIX QUAD 2017-18 36MOS UP/PF 0.5 ML SYRINGE IM ONE (14:45)
[2017-09-02] MEDS: Ondansetron 4 MG/2 ML VIAL IVP PRN (15:33)
[2017-09-02] MEDS ORDERED: Aminoglycoside Consult 1 EACH MC ONE ×2 (15:41)
[2017-09-02] MEDS ORDERED: cephALEXin 500 MG CAPSULE PO SCH (17:00)
[2017-09-02] MEDS ORDERED: *HR* Warfarin 3 MG TABLET PO ONE (18:00)
== END 2017-09-02 15:42 | disposition home or self-care (01) ==
LOC: EMEROO 17:42 → 3BNU 17:42 → 2ANU 08-31 00:46 → SUATTDRO 08-31 00:50
PROVIDERS: ADMIT Family Medicine; ATTEND Internal Medicine

== ENCOUNTER 2017-09-20 20:50 | Inpatient (IN) ==
[2017-09-20] MEDS ORDERED: 0.9 % Sodium Chloride 500 ML IVC ONE (20:58)
--- NOTE | 2017-09-20 21:01 | Emergency Department Note ---
Disposition Clinical Impression: Sepsis, UTI (urinary tract infection), NSTEMI (non-ST elevated myocardial infarction) Disposition: Admitted As Inpatient Condition: Fair General Adult HPI - General Chief complaint: ED General Medical Stated complaint: Fever Time Seen by Provider: 09/20/17 20:54 - Related Data Home Medications Medication Instructions Recorded Confirmed Carvedilol [Coreg] 3.125 mg PO BID 01/26/17 08/31/17 CloNIDine HCl [Kapvay] 0.1 mg PO BID 01/26/17 08/31/17 Furosemide [Lasix] 40 mg PO QPM 01/26/17 08/31/17 Insulin Glargine [Lantus] 55 unit SQ QAM 01/26/17 08/31/17 Insulin Regular, Human [Novolin R] 2 - 10 unit SQ TIDWM 01/26/17 08/31/17 Lisinopril 40 mg PO QAM 01/26/17 08/31/17 Omeprazole [PriLOSEC] 20 mg PO QAM 01/26/17 08/31/17 Sertraline [Zoloft] 50 mg PO HS 01/26/17 08/31/17 Simvastatin 10 mg PO HS 01/26/17 08/31/17 Warfarin [Coumadin] 5 mg PO Q48H 01/26/17 08/31/17 Warfarin [Coumadin] 7.5 mg PO Q48H 01/26/17 08/31/17 amLODIPine [Norvasc] 5 mg PO BID 01/26/17 08/31/17 Furosemide [Lasix] 20 mg PO QAM 08/31/17 08/31/17 Previous Rx's Medication Instructions Recorded Mupirocin [Bactroban Oint] 1 appl TP BID 7 Days tube 08/28/17 Doxycycline 100 mg PO BID #24 capsule 09/02/17 cephALEXin [Keflex] 500 mg PO Q12H #24 capsule 09/02/17 Allergies Allergy/AdvReac Type Severity Reaction Status Date / Time No Known Allergies Allergy Verified 08/30/17 17:58 Past Medical History - Past Medical History Medical history: Reports: atrial fibrillation, cancer, diabetes, hypertension, renal disease, other Surgical history: Reports: coronary bypass (CABG), other Psychiatric history: Reports: no psych history - Social History Smoking Status: Current every day smoker Smokeless Tobacco Status: No Alcohol use: Reports: none Drug use: Reports: none Course Vital Signs Temperature 102.4 F H 09/20/17 20:55 Pulse Rate 75 09/20/17 20:55 Respiratory Rate 16 09/20/17 20:55 Blood Pressure 200/95 09/20/17 20:55 O2 Sat by Pulse Oximetry 94 09/20/17 20:55 Temperature 99.3 F 09/21/17 07:39 Pulse Rate 64 09/21/17 07:39 Respiratory Rate 16 09/21/17 07:39 Blood Pressure 146/59 09/21/17 07:39 O2 Sat by Pulse Oximetry 96 09/21/17 07:39 Oxygen Delivery Oxygen Delivery Room Air Medical Decision Making - Lab Data Result diagrams: 09/21/17 01:01 EST 09/21/17 01:01 EST Lab Results 09/20/17 09/20/17 09/20/17 Range/Units 21:22 21:30 21:30 WBC 20.4 H (4.3-11.1) K/mcL RBC 3.91 L (4.19-5.50) M/mcL Hgb 11.8 L (12.9-16.9) g/dL Hct 35.3 L (37.5-50.1) % MCV 90.3 (83.0-100.0) fL MCH 30.2 (28.0-33.3) pg MCHC 33.4 (31.6-35.5) g/dL RDW 13.7 (11.5-14.5) % Plt Count 224 (140-400) K/mcL MPV 9.2 L (9.4-12.4) fL Immature Gran % 0.8 (0-4) % Seg Neutrophils % 90.7 % Lymphocytes % 2.8 % Monocytes % 5.5 % Eosinophils % 0.0 % Basophils % 0.2 % Neutrophils # 18.5 H (1.6-8.9) K/mcL Lymphocytes # 0.6 (0.6-4.6) K/mcL Monocytes # 1.1 (0.0-1.3) K/mcL Eosinophils # 0.0 (0.0-0.6) K/mcL Basophils # 0.0 (0.0-0.2) K/mcL PT 39.8 H (9.4-12.1) Seconds INR 3.6 Sodium (136-145) mEq/L Potassium (3.5-4.5) mEq/L Chloride (98-109) mEq/L Carbon Dioxide (19-29) mEq/L BUN (8-26) mg/dL Creatinine (0.72-1.25) mg/dL Est GFR ( Amer) (> 60) Est GFR (Non-Af Amer) (> 60) BUN/Creatinine Ratio (6-26) Glucose (70-99) mg/dL Calculated Osmolality (280-300) Lactic Acid (0.5-2.2) mmol/L Calcium (8.6-10.8) mg/dL Phosphorus (2.3-4.7) mg/dL Magnesium (1.6-2.6) mg/dL Total Bilirubin (0.2-1.2) mg/dL Direct Bilirubin (0.0-0.5) mg/dL Indirect Bilirubin (0.0-1.2) mg/dL AST (5-34) Units/L ALT (0-55) Units/L Alkaline Phosphatase (38-126) Units/L Troponin I (0-0.03) ng/mL Serum Total Protein (6.0-8.3) g/dL Albumin (3.5-5.0) g/dL Globulin (2.4-3.5) g/dL Albumin/Globulin Ratio (1.1-2.2) Urine Color Yellow (Yellow) Urine Clarity Cloudy A (Clear) Urine pH 6.0 (5.0-8.0) pH Units Ur Specific [place] 1.020 (1.010-1.025) Urine Protein >=1000 H (Neg-Trace) mg/dL Urine Glucose (UA) 100 H (Normal) mg/dL Urine Ketones Negative (Negative) mg/dL Urine Blood Large H (Negative) Urine Nitrite Negative (Negative) Urine Bilirubin Negative (Negative) Urine Urobilinogen Normal (Normal) mg/dL Ur Leukocyte Esterase Moderate H (Negative) Urine Microscopic RBC TNTC H (0-3) per hpf Urine Microscopic WBC TNTC H (0-3) per hpf Ur Squamous Epith Cells Moderate H (None-Few) per lpf Urine Bacteria Many H (None-Few) per hpf Hyaline Casts None Seen (None-Few) per lpf Ur Culture Indicated? YES A (NO) 09/20/17 09/20/17 09/20/17 Range/Units 21:30 21:30 21:30 WBC (4.3-11.1) K/mcL RBC (4.19-5.50) M/mcL Hgb (12.9-16.9) g/dL Hct (37.5-50.1) % MCV (83.0-100.0) fL MCH (28.0-33.3) pg MCHC (31.6-35.5) g/dL RDW (11.5-14.5) % Plt Count (140-400) K/mcL MPV (9.4-12.4) fL Immature Gran % (0-4) % Seg Neutrophils % % Lymphocytes % % Monocytes % % Eosinophils % % Basophils % % Neutrophils # (1.6-8.9) K/mcL Lymphocytes # (0.6-4.6) K/mcL Monocytes # (0.0-1.3) K/mcL Eosinophils # (0.0-0.6) K/mcL Basophils # (0.0-0.2) K/mcL PT (9.4-12.1) Seconds INR Sodium 136 (136-145) mEq/L Potassium 2.8 L (3.5-4.5) mEq/L Chloride 105 (98-109) mEq/L Carbon Dioxide 20 (19-29) mEq/L BUN 22 (8-26) mg/dL Creatinine 2.79 H (0.72-1.25) mg/dL Est GFR ( Amer) 27 L (> 60) Est GFR (Non-Af Amer) 22 L (> 60) BUN/Creatinine Ratio 8 (6-26) Glucose 115 H (70-99) mg/dL Calculated Osmolality 286 (280-300) Lactic Acid 0.9 (0.5-2.2) mmol/L Calcium 8.8 (8.6-10.8) mg/dL Phosphorus 2.4 (2.3-4.7) mg/dL Magnesium 1.5 L (1.6-2.6) mg/dL Total Bilirubin 1.7 H (0.2-1.2) mg/dL Direct Bilirubin 0.7 H (0.0-0.5) mg/dL Indirect Bilirubin 1.0 (0.0-1.2) mg/dL AST 14 (5-34) Units/L ALT 9 (0-55) Units/L Alkaline Phosphatase 135 H (38-126) Units/L Troponin I 0.14 H* (0-0.03) ng/mL Serum Total Protein 7.5 (6.0-8.3) g/dL Albumin 2.5 L (3.5-5.0) g/dL Globulin 5.0 H (2.4-3.5) g/dL Albumin/Globulin Ratio 0.5 L (1.1-2.2) Urine Color (Yellow) Urine Clarity (Clear) Urine pH (5.0-8.0) pH Units Ur Specific [place] (1.010-1.025) Urine Protein (Neg-Trace) mg/dL Urine Glucose (UA) (Normal) mg/dL Urine Ketones (Negative) mg/dL Urine Blood (Negative) Urine Nitrite (Negative) Urine Bilirubin (Negative) Urine Urobilinogen (Normal) mg/dL Ur Leukocyte Esterase (Negative) Urine Microscopic RBC (0-3) per hpf Urine Microscopic WBC (0-3) per hpf Ur Squamous Epith Cells (None-Few) per lpf Urine Bacteria (None-Few) per hpf Hyaline Casts (None-Few) per lpf Ur Culture Indicated? (NO) Attestation Statement - Attestation Attestation: I examined this patient and my medical decision-making was reviewed with the Resident Physician. I agree with the documented findings, disposition and treatment plan as described except to the extent set forth below. [id number] time provided Patient arrives by EMS. History obtained from his significant other. She notes that he has been confused. Fever prehospital. Patient with a recently placed indwelling David catheter. He appears in no acute distress on exam. The plan of care and management was discussed by me with the resident physician 21:22: ECG reviewed by me. The patient has diffuse ST segment depression. This study was compared to previous dated 01/26/17. He was resting comfortably. He denies having chest pain. Given the absence of ongoing chest pain I will check a troponin and continue to monitor. STEMI alert not activated 22:05: Patient's troponin is elevated. We will discuss this case with the on- call sanitor. He meets criteria for sepsis. He has a leukocytosis, chronic kidney disease, hypokalemia. We will initiate Levaquin therapy. He will be given an aspirin. He will be admitted to the medicine service
--- NOTE | 2017-09-20 21:09 | Emergency Department Note ---
Disposition Clinical Impression: NSTEMI (non-ST elevated myocardial infarction) Sepsis Qualifiers: Sepsis type: sepsis due to unspecified organism Qualified Code(s): A41.9 - Sepsis, unspecified organism UTI (urinary tract infection) Qualifiers: Urinary tract infection type: acute cystitis Hematuria presence: with hematuria Qualified Code(s): N30.01 - Acute cystitis with hematuria Disposition: Admitted As Inpatient Condition: Fair Referrals: Brenton Kruger DO [Primary Care Provider] - Forms: ED Satisfaction Letter, Work/School Release Time of Disposition: 23:16 General Adult HPI - General Chief complaint: ED General Medical Stated complaint: Fever Time Seen by Provider: 09/20/17 20:54 Source: patient, family, EMS Mode of arrival: EMS Limitations: no limitations Nursing Notes Reviewed: Yes Vital Signs Reviewed: Yes - History of Present Illness HPI Narrative: 77-year-old male presenting to the emergency department with chief complaint of fever and fatigue. Shearer of the history was taken by in the room. She states for the past couple days the patient has had increased fatigue that last evening he spiked a fever of 103. He just had an indwelling David placed 3 days ago due to fluid overload and congestive heart failure. His Lasix dose now was 120 mg daily. Patient denies any pain or complaints at this time. He states nothing is bothering him. He states he has just been feeling increased tiredness but no pain. He did not try anything at home for this. - Related Data Home Medications Medication Instructions Recorded Confirmed Carvedilol [Coreg] 3.125 mg PO BID 01/26/17 08/31/17 CloNIDine HCl [Kapvay] 0.1 mg PO BID 01/26/17 08/31/17 Furosemide [Lasix] 40 mg PO QPM 01/26/17 08/31/17 Insulin Glargine [Lantus] 55 unit SQ QAM 01/26/17 08/31/17 Insulin Regular, Human [Novolin R] 2 - 10 unit SQ TIDWM 01/26/17 08/31/17 Lisinopril 40 mg PO QAM 01/26/17 08/31/17 Omeprazole [PriLOSEC] 20 mg PO QAM 01/26/17 08/31/17 Sertraline [Zoloft] 50 mg PO HS 01/26/17 08/31/17 Simvastatin 10 mg PO HS 01/26/17 08/31/17 Warfarin [Coumadin] 5 mg PO Q48H 01/26/17 08/31/17 Warfarin [Coumadin] 7.5 mg PO Q48H 01/26/17 08/31/17 amLODIPine [Norvasc] 5 mg PO BID 01/26/17 08/31/17 Furosemide [Lasix] 20 mg PO QAM 08/31/17 08/31/17 Previous Rx's Medication Instructions Recorded Mupirocin [Bactroban Oint] 1 appl TP BID 7 Days tube 08/28/17 Doxycycline 100 mg PO BID #24 capsule 09/02/17 cephALEXin [Keflex] 500 mg PO Q12H #24 capsule 09/02/17 Allergies Allergy/AdvReac Type Severity Reaction Status Date / Time No Known Allergies Allergy Verified 08/30/17 17:58 All systems ED: reviewed and negative except as stated. Constitutional: Reports: fever, weakness. Denies: chills Eyes: Reports: as per HPI ENT ED: Reports: as per HPI Cardiovascular: Denies: chest pain, palpitations Respiratory: Denies: cough, dyspnea, wheezes Gastrointestinal: Denies: abdominal pain, nausea, vomiting Genitourinary: Reports: as per HPI Musculoskeletal: Reports: as per HPI Integumentary: Denies: rash, abrasion, lesions Neurological: Reports: weakness. Denies: numbness, paresthesias Psychiatric: Reports: as per HPI Endocrine: Reports: fatigue Hematological/Lymphatic: Reports: as per HPI Allergic/Immunologic: Reports: as per HPI Past Medical History - Past Medical History Attestation: Yes The following information was validated with the patient. Medical history: Reports: atrial fibrillation, cancer, diabetes, hypertension, renal disease, other Surgical history: Reports: coronary bypass (CABG), other Psychiatric history: Reports: no psych history - Social History Smoking Status: Current every day smoker Smokeless Tobacco Status: No Alcohol use: Reports: none Drug use: Reports: none Physical Exam - General Limitations: no limitations General appearance: alert, in no apparent distress - Head Head exam: atraumatic, normocephalic, normal inspection - Eye Eye exam: Present: normal appearance. Absent: scleral icterus, conjunctival injection - Chest Chest inspection: Present: normal inspection, symmetric chest wall rise. Absent : tenderness, rash - Respiratory Respiratory exam: Present: normal lung sounds bilaterally. Absent: respiratory distress, wheezes, stridor - Cardiovascular Cardiovascular exam: Present: irregular rhythm, normal heart sounds - Abdominal Exam Abdominal exam: Present: soft, Non-Tender. Absent: distention, guarding, rebound - Extremities Exam Extremities exam: Present: normal inspection, full ROM - Neurological Exam Neurological exam: Present: alert, oriented X3 - Psychiatric Psychiatric exam: Present: normal affect, normal mood - Skin Skin exam: Present: warm, intact Course Course Narrative: 77-year-old male presented to the emergency department with chief complaint of fever. Patient has no complaints at time of arrival. He states no chest pain, shortness of breath, abdominal pain. We will perform a sepsis rule out at this time due to unexplained fever. Patient is alert and oriented 3 in the room. Vital signs are stable at this time. Family at bedside agrees with this plan. - Reevaluation(s) Reevaluation #1: Patient was found to be hypokalemic and also have an elevated troponin. We will replete the potassium. Most likely source of infection from urine. We will start antibiotics at this time. We spoke with the drop forge operator implementation consultant Dr. Burdick who agrees to see the patient tomorrow. A call to the hospitalist was completed for admission. Pending admission at this time. Patient's alert and oriented 3 in the room and stable vital signs. Family at bedside. Family and patient agree with this plan. Reevaluation #2: Patient accepted by Dr. Black Time: 23:15 Vital Signs Temperature 102.4 F H 09/20/17 20:55 Pulse Rate 75 09/20/17 20:55 Respiratory Rate 16 09/20/17 20:55 Blood Pressure 200/95 09/20/17 20:55 O2 Sat by Pulse Oximetry 94 09/20/17 20:55 Temperature 102.4 F H 09/20/17 20:55 Pulse Rate 89 09/20/17 22:40 Respiratory Rate 24 09/20/17 22:40 Blood Pressure 189/89 09/20/17 22:40 O2 Sat by Pulse Oximetry 95 09/20/17 22:40 Oxygen Delivery Oxygen Delivery Room Air Medical Decision Making - Lab Data Result diagrams: 09/20/17 21:30 09/20/17 21:30 Lab Results 09/20/17 09/20/17 09/20/17 Range/Units 21:22 21:30 21:30 WBC 20.4 H (4.3-11.1) K/mcL RBC 3.91 L (4.19-5.50) M/mcL Hgb 11.8 L (12.9-16.9) g/dL Hct 35.3 L (37.5-50.1) % MCV 90.3 (83.0-100.0) fL MCH 30.2 (28.0-33.3) pg MCHC 33.4 (31.6-35.5) g/dL RDW 13.7 (11.5-14.5) % Plt Count 224 (140-400) K/mcL MPV 9.2 L (9.4-12.4) fL Immature Gran % 0.8 (0-4) % Seg Neutrophils % 90.7 % Lymphocytes % 2.8 % Monocytes % 5.5 % Eosinophils % 0.0 % Basophils % 0.2 % Neutrophils # 18.5 H (1.6-8.9) K/mcL Lymphocytes # 0.6 (0.6-4.6) K/mcL Monocytes # 1.1 (0.0-1.3) K/mcL Eosinophils # 0.0 (0.0-0.6) K/mcL Basophils # 0.0 (0.0-0.2) K/mcL PT 39.8 H (9.4-12.1) Seconds INR 3.6 Sodium (136-145) mEq/L Potassium (3.5-4.5) mEq/L Chloride (98-109) mEq/L Carbon Dioxide (19-29) mEq/L BUN (8-26) mg/dL Creatinine (0.72-1.25) mg/dL Est GFR ( Amer) (> 60) Est GFR (Non-Af Amer) (> 60) BUN/Creatinine Ratio (6-26) Glucose (70-99) mg/dL Calculated Osmolality (280-300) Lactic Acid (0.5-2.2) mmol/L Calcium (8.6-10.8) mg/dL Phosphorus (2.3-4.7) mg/dL Magnesium (1.6-2.6) mg/dL Total Bilirubin (0.2-1.2) mg/dL Direct Bilirubin (0.0-0.5) mg/dL Indirect Bilirubin (0.0-1.2) mg/dL AST (5-34) Units/L ALT (0-55) Units/L Alkaline Phosphatase (38-126) Units/L Troponin I (0-0.03) ng/mL Serum Total Protein (6.0-8.3) g/dL Albumin (3.5-5.0) g/dL Globulin (2.4-3.5) g/dL Albumin/Globulin Ratio (1.1-2.2) Urine Color Yellow (Yellow) Urine Clarity Cloudy A (Clear) Urine pH 6.0 (5.0-8.0) pH Units Ur Specific Parker 1.020 (1.010-1.025) Urine Protein >=1000 H (Neg-Trace) mg/dL Urine Glucose (UA) 100 H (Normal) mg/dL Urine Ketones Negative (Negative) mg/dL Urine Blood Large H (Negative) Urine Nitrite Negative (Negative) Urine Bilirubin Negative (Negative) Urine Urobilinogen Normal (Normal) mg/dL Ur Leukocyte Esterase Moderate H (Negative) Urine Microscopic RBC TNTC H (0-3) per hpf Urine Microscopic WBC TNTC H (0-3) per hpf Ur Squamous Epith Cells Moderate H (None-Few) per lpf Urine Bacteria Many H (None-Few) per hpf Hyaline Casts None Seen (None-Few) per lpf Ur Culture Indicated? YES A (NO) 09/20/17 09/20/17 09/20/17 Range/Units 21:30 21:30 21:30 WBC (4.3-11.1) K/mcL RBC (4.19-5.50) M/mcL Hgb (12.9-16.9) g/dL Hct (37.5-50.1) % MCV (83.0-100.0) fL MCH (28.0-33.3) pg MCHC (31.6-35.5) g/dL RDW (11.5-14.5) % Plt Count (140-400) K/mcL MPV (9.4-12.4) fL Immature Gran % (0-4) % Seg Neutrophils % % Lymphocytes % % Monocytes % % Eosinophils % % Basophils % % Neutrophils # (1.6-8.9) K/mcL Lymphocytes # (0.6-4.6) K/mcL Monocytes # (0.0-1.3) K/mcL Eosinophils # (0.0-0.6) K/mcL Basophils # (0.0-0.2) K/mcL PT (9.4-12.1) Seconds INR Sodium 136 (136-145) mEq/L Potassium 2.8 L (3.5-4.5) mEq/L Chloride 105 (98-109) mEq/L Carbon Dioxide 20 (19-29) mEq/L BUN 22 (8-26) mg/dL Creatinine 2.79 H (0.72-1.25) mg/dL Est GFR ( Amer) 27 L (> 60) Est GFR (Non-Af Amer) 22 L (> 60) BUN/Creatinine Ratio 8 (6-26) Glucose 115 H (70-99) mg/dL Calculated Osmolality 286 (280-300) Lactic Acid 0.9 (0.5-2.2) mmol/L Calcium 8.8 (8.6-10.8) mg/dL Phosphorus 2.4 (2.3-4.7) mg/dL Magnesium 1.5 L (1.6-2.6) mg/dL Total Bilirubin 1.7 H (0.2-1.2) mg/dL Direct Bilirubin 0.7 H (0.0-0.5) mg/dL Indirect Bilirubin 1.0 (0.0-1.2) mg/dL AST 14 (5-34) Units/L ALT 9 (0-55) Units/L Alkaline Phosphatase 135 H (38-126) Units/L Troponin I 0.14 H* (0-0.03) ng/mL Serum Total Protein 7.5 (6.0-8.3) g/dL Albumin 2.5 L (3.5-5.0) g/dL Globulin 5.0 H (2.4-3.5) g/dL Albumin/Globulin Ratio 0.5 L (1.1-2.2) Urine Color (Yellow) Urine Clarity (Clear) Urine pH (5.0-8.0) pH Units Ur Specific Parker (1.010-1.025) Urine Protein (Neg-Trace) mg/dL Urine Glucose (UA) (Normal) mg/dL Urine Ketones (Negative) mg/dL Urine Blood (Negative) Urine Nitrite (Negative) Urine Bilirubin (Negative) Urine Urobilinogen (Normal) mg/dL Ur Leukocyte Esterase (Negative) Urine Microscopic RBC (0-3) per hpf Urine Microscopic WBC (0-3) per hpf Ur Squamous Epith Cells (None-Few) per lpf Urine Bacteria (None-Few) per hpf Hyaline Casts (None-Few) per lpf Ur Culture Indicated? (NO) - EKG Data EKG #1 EKG attestation: Yes I reviewed and interpreted this EKG. EKG results narrative: Atrial fibrillation with a rate of 72 bpm. Left axis deviation. T-wave inversion noted in V2, V3, V4, V5, V6. No signs of ST segment elevation. When compared to previous EKG completed on 01/26/2017 new T-wave inversions noted.
[2017-09-20 21:31] LABS: Bilirubin,Urine Negative (Negative); Blood,Urine Large (Negative); Clarity,Urine Cloudy (Clear); Color,Urine Yellow (Yellow); Glucose,Urine (UA) 100 mg/dL (Normal); Ketones,Urine Negative (Negative); Leukocyte Esterase,Urine Moderate (Negative); Nitrite,Urine Negative (Negative); Protein,Urine >=1000 mg/dL (Neg-Trace); Urobilinogen,Urine Normal (Normal)
[2017-09-20 21:32] LABS: Bacteria,Urine Many per hpf (None-Few); Hyaline Casts,Urine None Seen per lpf (None-Few); RBC,Urine TNTC per hpf (0-3); Squamous Epithelial Cell,Urine Moderate per lpf (None-Few); WBC,Urine TNTC per hpf (0-3)
[2017-09-20 21:39] LABS: Basophils % 0.2 %; Hematocrit 35.3 % (37.5-50.1); Hemoglobin 11.8 g/dL (12.9-16.9); Immature Granulocytes % 0.8 % (0-4); Lymphocytes # 0.6 K/mcL (0.6-4.6); Lymphocytes % 2.8 %; Mean Corpuscular HGB Conc 33.4 g/dL (31.6-35.5); Mean Corpuscular Hemoglobin 30.2 pg (28.0-33.3); Mean Corpuscular Volume 90.3 fL (83.0-100.0); Mean Platelet Volume 9.2 fL (9.4-12.4); Monocytes # 1.1 K/mcL (0.0-1.3); Monocytes % 5.5 %; Neutrophils # 18.5 K/mcL (1.6-8.9); Platelet Count 224 K/mcL (140-400); Red Blood Count 3.91 M/mcL (4.19-5.50); Red Cell Distribution Width 13.7 % (11.5-14.5); Segmented Neutrophils % 90.7 %
[2017-09-20 21:50] LABS: INR 3.6; Prothrombin Time 39.8 Seconds (9.4-12.1)
[2017-09-20 21:55] LABS: Albumin 2.5 g/dL (3.5-5.0); Albumin/Globulin Ratio 0.5 (1.1-2.2); Bilirubin,Direct 0.7 mg/dL (0.0-0.5); Bilirubin,Total 1.7 mg/dL (0.2-1.2); Calcium 8.8 mg/dL (8.6-10.8); Magnesium 1.5 mg/dL (1.6-2.6); Phosphorous 2.4 mg/dL (2.3-4.7); Potassium 2.8 mEq/L (3.5-4.5); Total Protein 7.5 g/dL (6.0-8.3)
[2017-09-20] MEDS ORDERED: Levofloxacin 500 MG/100 ML 500 MG/100 ML BAG IVPB ONE (22:07)
[2017-09-20] MEDS ORDERED: Aspirin 81 MG TAB.CHEW PO STA (22:07)
[2017-09-21] MEDS ORDERED: 0.9 % Sodium Chloride 1,000 ML ONE (00:30)
[2017-09-21] MEDS ORDERED: Ipratropium/Albuterol Neb 3 ML IH PRN (00:35)
[2017-09-21] MEDS ORDERED: Cefepime HCl 1,000 MG in D5% in Water (Mini-Bag+) 100 ML IVPB SCH (00:36)
[2017-09-21] MEDS ORDERED: Ondansetron 4 MG/2 ML VIAL IVP PRN (00:36)
[2017-09-21] MEDS ORDERED: Acetaminophen 325 MG TABLET PO PRN ×2 (00:36→00:50)
[2017-09-21] MEDS ORDERED: Naloxone 0.4 MG/ML INJ IVP PRN (00:36)
[2017-09-21] MEDS ORDERED: *HR* OxyCODONE Immed Rel 5 MG TABLET PO PRN (00:36)
[2017-09-21] MEDS ORDERED: *HR* Morphine 2 MG/ML SYRINGE IVP PRN (00:36)
[2017-09-21] MEDS ORDERED: *HR* Dextrose 50 % in Water (Syg) 50 ML SYRINGE IVP PRN (00:36)
[2017-09-21] MEDS ORDERED: D5% in Water 1,000 ML IVC PRN (00:36)
[2017-09-21] MEDS ORDERED: Dextrose Gel 15 GM PO PRN ×2 (00:36)
--- NOTE | 2017-09-21 00:43 | Internal Med History&Physical ---
Date of Encounter: 09/21/17 Time of Encounter: 00:40 Assessment and Plan (1) Sepsis Current visit: Yes Status: Acute Sepsis secondary to urinary tract infection Continue Levaquin, start cefepime Await final report of culture We will hold IV fluids due to volume overload at this moment Omeprazole for GI prophylaxis and Coumadin for the DVT prophylaxis. The patient will be admitted as inpatient, expected to stay more than 2 midnights. DNR CC arrest DNI. Time spent this admission 40 minutes Qualifiers: Sepsis type: sepsis due to unspecified organism Qualified Code(s): A41.9 - Sepsis, unspecified organism (2) Elevated troponin Current visit: Yes Status: Acute Likely secondary to demand ischemia Cardiology was consulted Follow troponins, continue aspirin, statin and beta hiram (3) Hypokalemia Current visit: Yes Status: Acute Replete as needed with caution due to chronic kidney disease (4) Chronic kidney disease (CKD), stage IV (severe) Current visit: Yes Status: Acute (5) Type 2 diabetes mellitus Current visit: No Status: Chronic Use insulin sliding scale for now only Qualifiers: Diabetes mellitus complication status: with kidney complications Diabetes mellitus complication detail: with chronic kidney disease Diabetes mellitus snf insulin use: with terminal operations supervisor use Chronic kidney disease stage: stage 4 (severe) Qualified Code(s): E11.22 - Type 2 diabetes mellitus with diabetic chronic kidney disease; N18.4 - Chronic kidney disease, stage 4 (severe); N18.4 - Chronic kidney disease, stage 4 (severe); N18.4 - Chronic kidney disease, stage 4 (severe); N18.4 - Chronic kidney disease, stage 4 (severe); Z79.4 - terminal operations supervisor (current) use of insulin; Z79.4 - terminal operations supervisor (current) use of insulin; Z79.4 - terminal operations supervisor (current) use of insulin; Z79.4 - snf (current) use of insulin (6) A-fib Current visit: No Status: Chronic Hold Coumadin due to supratherapeutic INR Continue carvedilol Qualifiers: Atrial fibrillation type: chronic Qualified Code(s): I48.2 - Chronic atrial fibrillation (7) Tobacco abuse Current visit: No Status: Chronic Smoking cessation counseling, nicotine patch (8) UTI (urinary tract infection) Current visit: Yes Status: Acute Qualifiers: Urinary tract infection type: acute cystitis Hematuria presence: with hematuria Qualified Code(s): N30.01 - Acute cystitis with hematuria Internal Medicine - H&P: HPI Chief complaint: Fever Admitted From: Emergency Dept History of present illness: Mr. Holly is a 77 year old male with a past medical history of chronic kidney disease stage IV, hypertension, tobacco use, diabetes type 2 insulin-dependent was discharged from this hospital on August where he was treated for cellulitis , the patient was discharged on Keflex and doxycycline. She came today complaining of a very high fever of 102.4. Couple of days ago he had a David catheter placed as he has not been able to void much lately. Yesterday, the patient started complaining of malaise, fever and severe fatigue. We will also continue his 20.4 INR is 3.6 as he takes Coumadin at home for atrial fibrillation, creatinine is 2.79 close to baseline, troponin 0.14 but he is not complaining of any chest pain at the moment cardiology was consulted and recommended only aspirin for now. Potassium is 2.8-1.5. Urinalysis shows too numerous to count white blood cells and the too numerous to count red blood cells as well. Chest x-ray shows vascular congestion. The patient has had severe bilateral lower extremity edema. His blood pressure is 200/95. Was started on Levaquin at the emergency room. Past Med Surg Social Fam HX - Past Medical History Medical history: atrial fibrillation (On Coumadin), cancer (History of renal cancer status post left nephrectomy), diabetes (Insulin-dependent), hypertension , renal disease (Chronic kidney disease stage IV disease), other (Tobacco use, GERD, hyperlipidemia, diastolic CHF, severe pulmonary hypertension) Psychiatric history: no psych history - Past Surgical History Surgical History: coronary bypass (CABG), other (Left nephrectomy due to history of renal cell carcinoma) - Social History Smoking Status: Current every day smoker Packs per day: One pack per day Smokeless Tobacco Status: No Alcohol use: none Drug use: none - Family History Father Living Status: Hx Family Cancer: Yes (Pancreatic) Mother Living Status: Hx Family Cardiac Disorders: Yes - Additional Family History Additional family history: Father with pancreatic cancer Internal Medicine - H&P: Meds Carvedilol [Coreg] 3.125 mg PO BID 01/26/17 [History] CloNIDine HCl [Kapvay] 0.1 mg PO BID 01/26/17 [History] Furosemide [Lasix] 40 mg PO QPM 01/26/17 [History] Insulin Glargine [Lantus] 55 unit SQ QAM 01/26/17 [History] Insulin Regular, Human [Novolin R] 2 - 10 unit SQ TIDWM 01/26/17 [History] Lisinopril 40 mg PO QAM 01/26/17 [History] Omeprazole [PriLOSEC] 20 mg PO QAM 01/26/17 [History] Sertraline [Zoloft] 50 mg PO HS 01/26/17 [History] Simvastatin 10 mg PO HS 01/26/17 [History] Warfarin [Coumadin] 5 mg PO Q48H 01/26/17 [History] Warfarin [Coumadin] 7.5 mg PO Q48H 01/26/17 [History] amLODIPine [Norvasc] 5 mg PO BID 01/26/17 [History] Mupirocin [Bactroban Oint] 1 appl TP BID 7 Days tube 08/28/17 [Rx] Furosemide [Lasix] 20 mg PO QAM 08/31/17 [History] Doxycycline 100 mg PO BID #24 capsule 09/02/17 [Rx] cephALEXin [Keflex] 500 mg PO Q12H #24 capsule 09/02/17 [Rx] 3 Allergy/AdvReac Type Severity Reaction Status Date / Time No Known Allergies Allergy Verified 08/30/17 17:58 All Systems PM: A 10-system review of systems was performed and is negative for pertinent findings except as documented above in the HPI. Review of systems: He denies any chest pain, shortness of breath mild shortness of breath, no abdominal pain. Other systems out of the 10 review were negative - Constitutional Vitals: Temp Pulse Resp BP Pulse Ox 102.4 F H 89 16 171/89 95 09/20/17 20:55 09/20/17 22:40 09/20/17 23:41 09/20/17 23:41 09/20/17 22:40 General appearance: Present: A&O X 3 - Head Head exam: Present: atraumatic, normocephalic - Eye Eye exam: Present: PERRL, conjuntiva pink, sclera anicteric Pupils: Present: PERRL - Neck Neck exam general surgery: Present: supple, trachea midline. Absent: lymphadenopathy - Respiratory Respiratory exam: Present: CTAB, rales (Diffuse crackles). Absent: accessory muscle use, rhonchi, wheezes - Cardiovascular Cardiovascular exam: Present: RRR, +S1, +S2. Absent: diastolic murmur, gallop, rubs, systolic murmur - GI/Abdominal GI/Abdominal exam: Present: normal bowel sounds, soft, no peritoneal signs. Absent: distended, tenderness - Extremities Exam Extremities exam: Present: pedal edema (+3 pitting edema in both lower extremities), warm, radial pulses palpable and symmetrical. Absent: calf tenderness, cyanotic - Neurological Exam Neurological exam: Present: CN II-XII intact, oriented X3, no focal deficits. Absent: pronater drift, facial droop, speech deficit Additional comments: David catheter in place - Skin Skin exam: Present: dry, intact Internal Med - H&P Results - Labs CBC & Chem 7: 09/20/17 21:30 09/20/17 21:30
[2017-09-21] MEDS ORDERED: Cefepime HCl 1,000 MG in Water for inj. (sterile) 10 ML IVP SCH (01:00)
[2017-09-21 01:20] LABS: Hematocrit 32.3 % (37.5-50.1); Hemoglobin 10.9 g/dL (12.9-16.9); Mean Corpuscular HGB Conc 33.7 g/dL (31.6-35.5); Mean Corpuscular Hemoglobin 30.3 pg (28.0-33.3); Mean Corpuscular Volume 89.7 fL (83.0-100.0); Mean Platelet Volume 9.1 fL (9.4-12.4); Platelet Count 206 K/mcL (140-400); Red Cell Distribution Width 13.7 % (11.5-14.5)
[2017-09-21] MEDS: cloNIDine HCl 0.1 MG TABLET PO SCH ×3 (01:24→21:04)
[2017-09-21] MEDS: Nicotine 21 MG PATCH.TD24 TD SCH ×2 (01:24→09:46)
[2017-09-21] MEDS: amLODIPine 5 MG TABLET PO SCH ×3 (01:24→21:04)
[2017-09-21 01:37] LABS: Calcium 8.8 mg/dL (8.6-10.8)
[2017-09-21] MEDS ORDERED: Magnesium Sulfate 1 GM in 0.9 % Sodium Chloride 50 ML IVPB ONE (08:56)
[2017-09-21] MEDS ORDERED: Potassium Chloride 40 MEQ, Lidocaine 1% 2 ML in D5% in Water 500 ML IVPB ONE (08:56)
[2017-09-21] MEDS: Insulin LISPRO 300 UNITS/3 ML VIAL SQ SCH ×4 (09:36→21:05)
[2017-09-21] MEDS: Aspirin Enteric Coated 81 MG Tablet PO SCH (09:45)
--- NOTE | 2017-09-21 09:57 | Internal Med Progress Note ---
<Sesar Vides - Last Filed: 09/21/17 13:27> Date of Encounter: 09/21/17 Time of Encounter: 08:30 - Assessment and plan (1) Sepsis Current Visit: Yes Status: Acute Assessment and plan: - 3 SIRS criteria (T 102.4, WBC 20.4, RR 24) with lactic acid 0.9 on initial presentation. - Likely secondary to UTI. - Pending blood cultures and urine culture. - Hydration with IV fluid. - Continue levofloxacin and cefepime. - Closely monitor. Qualifiers: Sepsis type: sepsis due to unspecified organism Qualified Code(s): A41.9 - Sepsis, unspecified organism (2) UTI (urinary tract infection) Current Visit: Yes Status: Acute Assessment and plan: - UA found moderate leukocyte esterase and many bacteria. Urine culture pending. - Patient was on David for 2 weeks prior to admission. - Continue levofloxacin and cefepime. Further de-escalation based on clinical picture and culture result. Qualifiers: Urinary tract infection type: acute cystitis Hematuria presence: with hematuria Qualified Code(s): N30.01 - Acute cystitis with hematuria (3) Elevated troponin Current Visit: Yes Status: Acute Assessment and plan: - Elevated troponin 0.14 and 0.22 on repeat. - Patient denies chest pain and no significant ischemic change on EKG. - Likely secondary to demand ischemia associated with current urosepsis. - TTE on 01/27/2017 showed LVEF 55% with basal inferior wall hypokinesis, atypical septal motion consistent with prior cardiac surgery, mild-moderate concentric LVH, indeterminate diastolic dysfunction due to A-fib, severely dilated LA, mildly dilated RA, mild TR, severe pulmonary HTN. All other wall segments with normal motion. LHC was recommended by cardiology at that time due to wall motion abnormality but patient refused. - Continue to trend troponin. - Cardiology on board and recommends SANJIV for now. (4) Hypokalemia Current Visit: Yes Status: Acute Assessment and plan: - K 3.0 today - Replace with KCl - Continue to monitor. (5) Hypomagnesemia Current Visit: Yes Status: Acute Assessment and plan: - Mg 1.5 on admission. - Replace with 1 gram of MgSO4 IV. - Continue to monitor. (6) CAD (coronary artery disease) Current Visit: No Status: Chronic Assessment and plan: - with history of CABG. - Patient denies chest pain at this time. - Continue aspirin, statin and beta hiram. Qualifiers: Coronary Disease-Associated Artery/Lesion type: [place] artery [place] vs. transplanted heart: [place] heart Associated angina: without angina Qualified Code(s): I25.10 - Atherosclerotic heart disease of [place] coronary artery without angina pectoris (7) A-fib Current Visit: No Status: Chronic Assessment and plan: - Currently rate-controlled. - Continue Coreg. - INR 3.3 today. On warfarin dosing by pharmacy. Qualifiers: Atrial fibrillation type: chronic Qualified Code(s): I48.2 - Chronic atrial fibrillation (8) Chronic kidney disease (CKD), stage IV (severe) Current Visit: Yes Status: Chronic Assessment and plan: - SCr 2.70 and eGFR 28 today. - Patient of Dr. Pavon. - Avoid nephrotoxin. (9) Type 2 diabetes mellitus Current Visit: No Status: Chronic Assessment and plan: - Insulin sliding scale with frequent glucose monitoring. Qualifiers: Diabetes mellitus complication status: with kidney complications Diabetes mellitus complication detail: with chronic kidney disease Diabetes mellitus medical terminologist insulin use: with medical terminologist use Chronic kidney disease stage: stage 4 (severe) Qualified Code(s): E11.22 - Type 2 diabetes mellitus with diabetic chronic kidney disease; N18.4 - Chronic kidney disease, stage 4 (severe); N18.4 - Chronic kidney disease, stage 4 (severe); N18.4 - Chronic kidney disease, stage 4 (severe); N18.4 - Chronic kidney disease, stage 4 (severe); Z79.4 - MCC (current) use of insulin; Z79.4 - [facility] (current) use of insulin; 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 Patient was seen and examined this morning. Patient has no complaint and denies fever, chills, chest pain, shortness of breath, abdominal pain, nausea, vomiting. Per patient, he was on David for 2 weeks prior to admission. - Constitutional Vitals: Temp Pulse Resp BP Pulse Ox 99.3 F 64 16 146/59 96 09/21/17 07:39 09/21/17 07:39 09/21/17 07:39 09/21/17 07:39 09/21/17 07:39 General appearance: Present: A&O X 3 - Head Head exam: Present: atraumatic, normocephalic - Eye Eye exam: Present: EOMI, conjuntiva pink, sclera anicteric - ENT ENT exam: Present: mucous membranes dry - Neck Neck exam general surgery: Present: supple, trachea midline. Absent: lymphadenopathy - Respiratory Respiratory exam: Present: CTAB. Absent: accessory muscle use, rales, rhonchi, wheezes - Cardiovascular Cardiovascular exam: Present: RRR, +S1, +S2. Absent: diastolic murmur, gallop, rubs, systolic murmur - GI/Abdominal GI/Abdominal exam: Present: normal bowel sounds, soft, no peritoneal signs. Absent: distended, tenderness - Extremities Exam Extremities exam: Present: warm, radial pulses palpable and symmetrical. Absent : calf tenderness, cyanotic, pedal edema - Neurological Exam Neurological exam: Present: oriented X3, no focal deficits. Absent: facial droop, speech deficit - Skin Skin exam: Present: dry, intact, warm Internal Medicine: Result - Labs CBC & Chem 7: 09/21/17 01:01 EST 09/21/17 01:01 EST Labs: Short CBC 09/21/17 Range/Units 01:01 EST WBC 24.8 H (4.3-11.1) K/mcL Hgb 10.9 L (12.9-16.9) g/dL Hct 32.3 L (37.5-50.1) % Plt Count 206 (140-400) K/mcL BMP 09/21/17 01:01 EST Sodium 136 Potassium 3.0 L Chloride 104 Carbon Dioxide 19 BUN 23 Creatinine 2.70 H Glucose 99 Calcium 8.8 - ABG Interpretation ABG results: PT/INR, D-dimer PT 39.8 Seconds (9.4-12.1) H 09/20/17 21:30 Consult Discharge Plan - Plan Referrals: Brenton Kruger DO [Primary Care Provider] - <Sánchez Mohan - Last Filed: 09/21/17 15:49> Date of Encounter: 09/21/17 - Constitutional Vitals: Temp Pulse Resp BP Pulse Ox 99.4 F 67 16 142/91 96 09/21/17 15:27 09/21/17 15:27 09/21/17 15:27 09/21/17 15:27 09/21/17 15:27 Internal Medicine: Result - Labs CBC & Chem 7: 09/21/17 01:01 EST 09/21/17 01:01 EST Labs: Short CBC 09/21/17 Range/Units 01:01 EST WBC 24.8 H (4.3-11.1) K/mcL Hgb 10.9 L (12.9-16.9) g/dL Hct 32.3 L (37.5-50.1) % Plt Count 206 (140-400) K/mcL BMP 09/21/17 01:01 EST Sodium 136 Potassium 3.0 L Chloride 104 Carbon Dioxide 19 BUN 23 Creatinine 2.70 H Glucose 99 Calcium 8.8 Cardiac Enzymes 09/21/17 Range/Units 11: Troponin I 0.22 H* (0-0.03) ng/mL - ABG Interpretation ABG results: PT/INR, D-dimer PT 35.9 Seconds (9.4-12.1) H 09/21/17 11:26 - Attending Attestation I examined this patient and my medical decision-making was reviewed with the Resident Physician on 09/21/17. I agree with the documented findings, disposition and treatment plan as described except to the extent set forth below. Mr Holly was admitted earlier this morning for sepsis related to presumed UTI. He overall has been improving some. Cultures pending. Exam Alert. Comfortable Heart tachy No wheeze Agree with plan as above Await cultures. Echo planned by cardiology.
--- NOTE | 2017-09-21 10:04 | Cardiology Consult Note ---
Date of Encounter: 09/21/17 Time of Encounter: 09:30 Assessment and Plan (1) Sepsis Current Visit: Yes Status: Acute Per cardiology: -Admitted with sepsis, suspected UTI -Management per primary service. Qualifiers: Sepsis type: sepsis due to unspecified organism Qualified Code(s): A41.9 - Sepsis, unspecified organism (2) Elevated troponin I level Current Visit: No Status: Acute Per cardiology: -Troponin 0.14 on admisison in the setting of sepsis. -Repeat troponin pending. -Denies chest pain. -ECG with no acute ishcemic changes. -TTE 01/2017 with LVEF 55%, atypical septal motion consistent with prior cardiac surgery, mild-moderate concentric LVH, indeterminate diastolic dysfunction due to atrial fibrillation, severely dilated left atrium, mildly dilated right atrium, mild TR, severe pulmonary hypertension, basal inferior wall hypokinetic. All other wall segments with normal motion. Patient was recommended for LHC at that time due to wall motion abnormality, however patient refused. -Do not suspect NSTEMI, suspect demand ischemia related to sepsis. No cardiac rehab warranted at this time. -Trend troponin. -Will check limited echo. (3) CAD (coronary artery disease) Current Visit: No Status: Chronic Per cardiology: -Known CAD with previous CABG. -Stress 2013 negative. -TTE 01/2017 with LVEF 55%, new wall motion abnormality noted. -On asa, statin, beta hiram. -Denies chest pain. -Will repeat echo. Qualifiers: Coronary Disease-Associated Artery/Lesion type: [place] artery [place] vs. transplanted heart: [place] heart Associated angina: without angina Qualified Code(s): I25.10 - Atherosclerotic heart disease of [place] coronary artery without angina pectoris (4) Chronic kidney disease (CKD), stage IV (severe) Current Visit: Yes Status: Chronic Per cardiology: -KNown CKD. -Creatinine 2.79 on admission. -Management per primary service. (5) A-fib Current Visit: No Status: Chronic Per cardiology: -KNown atrial fibrillation. -On beta blcoker. -HR controlled. -On coumadin in outpatient setting. INR 3.6 on admission, now on hold. -Will continue to monitor. Qualifiers: Atrial fibrillation type: chronic Qualified Code(s): I48.2 - Chronic atrial fibrillation Discussion w patient/family: The assessment and plan as outlined above was discussed with the patient who expressed understanding and agreement. All questions were answered. Thank you for involving us in the care of your patient. Please call with any questions. Discussed and reviewed with . History of Present Illness Consult date: 09/20/17 Requesting physician: Anastasiya Nuñez Consult reason: NSTEMI Chief complaint: diarrhea History of present illness: Mr. Holly is a 77 year old male with a relevant past medical history of HTN, DM , CAD s/p CABG, atrial fibrillation, CKD stage IV, left nephrectomy. When asked what brought patient into the hospital he states " I don't know, I think diarrhea." Patient denies chest pain or shortness of breath. Patient denies increased fatigue, however per ER report, reported increased fatigue. Patient report he has had fevers at home. No family available at bedside during time of assessment. Past Med Surg Social Fam HX - Past Medical History Attestation: Yes The following information was validated with the patient. Source: patient, old records reviewed Medical history: atrial fibrillation, cancer, diabetes, hypertension, renal disease, other Psychiatric history: no psych history - Past Surgical History Surgical History: coronary bypass (CABG), other - Social History Smoking Status: Current every day smoker Packs per day: 1/2 pack a day Smokeless Tobacco Status: No Alcohol use: none Drug use: none - Family History Father Living Status: Hx Family Cancer: Yes (Pancreatic) Mother Living Status: Hx Family Cardiac Disorders: Yes Medications and Allergies Carvedilol [Coreg] 3.125 mg PO BID 01/26/17 [History] CloNIDine HCl [Kapvay] 0.1 mg PO BID 01/26/17 [History] Furosemide [Lasix] 40 mg PO QPM 01/26/17 [History] Insulin Glargine [Lantus] 55 unit SQ QAM 01/26/17 [History] Insulin Regular, Human [Novolin R] 2 - 10 unit SQ TIDWM 01/26/17 [History] Lisinopril 40 mg PO QAM 01/26/17 [History] Omeprazole [PriLOSEC] 20 mg PO QAM 01/26/17 [History] Sertraline [Zoloft] 50 mg PO HS 01/26/17 [History] Simvastatin 10 mg PO HS 01/26/17 [History] Warfarin [Coumadin] 5 mg PO Q48H 01/26/17 [History] Warfarin [Coumadin] 7.5 mg PO Q48H 01/26/17 [History] amLODIPine [Norvasc] 5 mg PO BID 01/26/17 [History] Mupirocin [Bactroban Oint] 1 appl TP BID 7 Days tube 08/28/17 [Rx] Furosemide [Lasix] 20 mg PO QAM 08/31/17 [History] Doxycycline 100 mg PO BID #24 capsule 09/02/17 [Rx] cephALEXin [Keflex] 500 mg PO Q12H #24 capsule 09/02/17 [Rx] 3 Allergy/AdvReac Type Severity Reaction Status Date / Time No Known Allergies Allergy Verified 08/30/17 17:58 All Systems Review: A 10-system review of systems was performed and is negative for pertinent findings except as documented above in the HPI. - Constitutional Constitutional: fatigue, fever(s) - Cardiovascular Cardiovascular: as per HPI - Gastrointestinal Gastrointestinal: diarrhea Physical Examination Vital Signs, Last 4 Hours Temp Pulse Resp BP Pulse Ox 09/21/17 07:39 99.3 F 64 16 146/59 96 General: Conversant, No Apparent Distress HEENT: Atraumatic, Normocephaly, Mucus Membranes Moist Neck: No JVD, Normal carotid pulses Cardiac: Normal S1 and S2, No Murmur, Other (Irregularly, irregular. ) Lungs: Normal Breath Sounds, No Wheeze, Rales, Rhonchi Neuro: Alert and responsive, Other (Oriented to person and place. ) Abdomen: Soft, Non-Tender Skin: No rashes noted on visualized skin Musculoskeletal: No Chest Wall Tenderness Extremities: No Clubbing, No Cyanosis, Normal Pulses, Other (Moderate bilateral pedal edema, non-pitting. ) Results 09/21/17 01:01 EST 09/21/17 01:01 EST Lab Results Active Medications Acetaminophen (Tylenol) 650 mg PO Q6HR PRN PRN Reason: Mild Pain (1-3) Stop: 03/23/18 00:37 Last Admin: 09/21/17 01:23 EDT Dose: 650 mg Acetaminophen (Tylenol) 650 mg PO Q4HR PRN PRN Reason: fever and mild pain Stop: 03/23/18 00:51 Last Admin: 09/21/17 05:22 Dose: 650 mg Albuterol/Ipratropium (Duoneb) 3 ml IH [id number] PRN; Protocol PRN Reason: Shortness Of Breath/Wheezing Stop: 03/23/18 00:36 Amlodipine Besylate (Norvasc) 5 mg PO BID [facility] PRN Reason: Protocol Stop: 03/23/18 00:46 Last Admin: 09/21/17 09:46 Dose: 5 mg Aspirin (Aspirin Ec) 81 mg PO DAILY [facility] Stop: 03/23/18 09:01 Last Admin: 09/21/17 09:45 Dose: 81 mg Carvedilol (Coreg) 3.125 mg PO BIDWM [facility] PRN Reason: Protocol Stop: 03/23/18 00:46 Last Admin: 09/21/17 09:45 Dose: 3.125 mg Clonidine HCl (Clonidine Hcl) 0.1 mg PO BID [facility] Stop: 03/23/18 00:46 Last Admin: 09/21/17 09:45 Dose: 0.1 mg Dextrose/Water (Dextrose 50% (Syg)) 25 ml IVP AD PRN PRN Reason: Hypoglycemia Stop: 03/23/18 00:37 Glucagon (Glucagen) 1 mg IM ONCE PRN PRN Reason: Hypoglycemia Stop: 03/23/18 00:37 Glucose (Gluctose) 15 gm PO ONCE PRN PRN Reason: Hypoglycemia Stop: 03/23/18 00:37 Glucose (Gluctose) 30 gm PO ONCE PRN PRN Reason: Hypoglycemia Stop: 03/23/18 00:37 Hydralazine HCl (Hydralazine) 20 mg IVP Q6HR PRN PRN Reason: Hypertension Stop: 03/23/18 00:51 Levofloxacin/Dextrose (Levaquin Premix 500mg/100ml) 500 mg in 100 mls @ 100 mls /hr IVPB Q24H [facility]QUE PRN Reason: Protocol Stop: 03/23/18 23:01 Dextrose (Dextrose 5%) 1,000 mls @ 100 mls/hr IVC .Q10H PRN PRN Reason: HYPOGLYCEMIA Stop: 03/23/18 00:37 Potassium Chloride 40 meq/ (Lidocaine 2 ml/ Dextrose) 522 mls @ 130.5 mls/hr IVPB ONCE ONE Stop: 09/21/17 12:55 Cefepime HCl 1,000 mg/ Sterile (Water) 10 mls @ 150 mls/hr IVP Q24H [facility] Stop: 03/24/18 02:01 Insulin Human Lispro (Humalog) 0 units SQ TIDAC [facility] PRN Reason: Protocol Stop: 03/23/18 07:31 Last Admin: 09/21/17 09:36 Dose: Not Given Insulin Human Lispro (Humalog) 0 units SQ HS [facility] PRN Reason: Protocol Stop: 03/23/18 21:01 Morphine Sulfate (Morphine Sulfate) 2 mg IVP Q4HR PRN PRN Reason: Severe Pain (7-10) Stop: 03/23/18 00:37 Naloxone HCl (Narcan) 0.4 mg IVP Q2MIN PRN PRN Reason: Opioid Reversal Stop: 03/23/18 00:37 Nicotine (Nicoderm) 21 mg TD DAILY [facility] PRN Reason: Protocol Stop: 03/23/18 00:46 Last Admin: 09/21/17 09:46 Dose: Not Given Omeprazole (Prilosec) 20 mg PO 0630 [facility] PRN Reason: Protocol Stop: 03/23/18 06:31 Last Admin: 09/21/17 05:21 Dose: 20 mg Ondansetron HCl (Zofran) 4 mg IVP Q8HR PRN PRN Reason: Nausea And Vomiting Stop: 03/23/18 00:37 Oxycodone HCl (Roxicodone) 5 mg PO Q6HR PRN PRN Reason: Moderate Pain (4-6) Stop: 03/23/18 00:37 Sertraline HCl (Zoloft) 50 mg PO [facility] Stop: 03/23/18 21:01 Simvastatin (Zocor) 10 mg PO [facility] Stop: 03/23/18 21:01 Laboratory Tests 09/01/17 09/02/17 09/17/17 05:45 06:09 09:48 WBC Hgb Potassium Creatinine 2.58 H 2.46 H 2.55 H Troponin I 09/20/17 09/20/17 09/20/17 21:30 21:30 21:30 WBC 20.4 H Hgb 11.8 L Potassium Creatinine 2.79 H Troponin I 0.14 H* 09/21/17 09/21/17 01:01 EST 01:01 EST WBC 24.8 H Hgb 10.9 L Potassium 3.0 L Creatinine 2.70 H Troponin I - Imaging and Cardiology Chest Xray: report reviewed Stress Test: report reviewed Echo: report reviewed - EKG Interpretation EKG results cardiology: personally reviewed (ECG with atrial fibrillation, HR 72.), other (Telemetry reviewed with average HR previous 12 hours noted to be 73 , atrial fibrillation. PVCs noted.) Consult Discharge Plan - Plan Referrals: Brenton Kruger DO [Primary Care Provider] -
[2017-09-21 12:27] LABS: INR 3.3; Prothrombin Time 35.9 Seconds (9.4-12.1)
[2017-09-21] MEDS ORDERED: Warfarin perPT PO PRN (18:00)
[2017-09-21] MEDS ORDERED: Levofloxacin 500 MG/100 ML 500 MG/100 ML BAG IVPB SCH (23:00)
[2017-09-22] MEDS: Cefepime HCl 1,000 MG in Water for inj. (sterile) 10 ML IVP SCH (03:28)
[2017-09-22 05:00] LABS: Basophils # 0.1 K/mcL (0.0-0.2); Basophils % 0.3 %; Eosinophils % 0.2 %; Hematocrit 28.2 % (37.5-50.1); Immature Granulocytes % 2.9 % (0-4); Lymphocytes # 1.3 K/mcL (0.6-4.6); Lymphocytes % 7.9 %; Mean Corpuscular Hemoglobin 30.2 pg (28.0-33.3); Mean Corpuscular Volume 91.6 fL (83.0-100.0); Mean Platelet Volume 9.9 fL (9.4-12.4); Monocytes # 0.8 K/mcL (0.0-1.3); Monocytes % 4.9 %; Neutrophils # 14.1 K/mcL (1.6-8.9); Platelet Count 155 K/mcL (140-400); Red Blood Count 3.08 M/mcL (4.19-5.50); Segmented Neutrophils % 83.8 %
[2017-09-22 05:02] LABS: Hemoglobin 9.3 g/dL (12.9-16.9)
[2017-09-22 05:08] LABS: INR 2.9
[2017-09-22 05:12] LABS: Calcium 8.2 mg/dL (8.6-10.8); Magnesium 1.7 mg/dL (1.6-2.6); Potassium 3.9 mEq/L (3.5-4.5)
[2017-09-22] MEDS: Aspirin Enteric Coated 81 MG Tablet PO SCH (08:35)
[2017-09-22] MEDS: Nicotine 21 MG PATCH.TD24 TD SCH (08:35)
[2017-09-22] MEDS: cloNIDine HCl 0.1 MG TABLET PO SCH ×2 (08:35→21:19)
[2017-09-22] MEDS: Insulin LISPRO 300 UNITS/3 ML VIAL SQ SCH ×4 (08:36→21:20)
[2017-09-22] MEDS: amLODIPine 5 MG TABLET PO SCH ×2 (08:36→21:19)
--- NOTE | 2017-09-22 09:30 | Cardiology Progress Note ---
Date of Encounter: 09/22/17 Time of Encounter: 09:00 Assessment and Plan (1) Sepsis Current Visit: Yes Status: Acute Per cardiology: -Admitted with sepsis, suspected UTI -Management per primary service. Qualifiers: Sepsis type: sepsis due to unspecified organism Qualified Code(s): A41.9 - Sepsis, unspecified organism (2) Elevated troponin I level Current Visit: No Status: Acute Per cardiology: -Troponin 0.14, 0.22 in the setting of sepsis. -Denies chest pain. -ECG with no acute ishcemic changes. -TTE 01/2017 with LVEF 55%, atypical septal motion consistent with prior cardiac surgery, mild-moderate concentric LVH, indeterminate diastolic dysfunction due to atrial fibrillation, severely dilated left atrium, mildly dilated right atrium, mild TR, severe pulmonary hypertension, basal inferior wall hypokinetic. All other wall segments with normal motion. Patient was recommended for LHC at that time due to wall motion abnormality, however patient refused. -Limited TTE pending. -Do not suspect NSTEMI, suspect demand ischemia related to sepsis. No cardiac rehab warranted at this time. -If no change in TTE, anticipate cardiology sign off. (3) CAD (coronary artery disease) Current Visit: No Status: Chronic Per cardiology: -Known CAD with previous CABG. -Stress 2012 negative. -TTE 01/2017 with LVEF 55%, new wall motion abnormality noted. -On asa, statin, beta hiram. -Denies chest pain. -Will repeat echo. Qualifiers: Coronary Disease-Associated Artery/Lesion type: [place] artery [place] vs. transplanted heart: [place] heart Associated angina: without angina Qualified Code(s): I25.10 - Atherosclerotic heart disease of [place] coronary artery without angina pectoris (4) Chronic kidney disease (CKD), stage IV (severe) Current Visit: Yes Status: Chronic Per cardiology: -KNown CKD. -Creatinine 3.31 today. -Management per primary service. (5) A-fib Current Visit: No Status: Chronic Per cardiology: -KNown atrial fibrillation. -On beta blcoker. -HR controlled. -On coumadin in outpatient setting. INR 3.6 on admission, now on hold. -Will continue to monitor. Qualifiers: Atrial fibrillation type: chronic Qualified Code(s): I48.2 - Chronic atrial fibrillation Discussion w patient/family: The assessment and plan as outlined above was discussed with the patient who expressed understanding and agreement. All questions were answered. Thank you for involving us in the care of your patient. Please call with any questions. Discussed and reviewed with . Subjective Principal diagnosis: Sepsis Interval history: Patient denies chest pain or shortness of breath. Patient states he feels much better today. Objective Vital Signs, Last 4 Hours Temp Pulse Resp BP Pulse Ox 09/22/17 07:00 98.1 F 68 18 143/66 95 General: Conversant, No Apparent Distress HEENT: Atraumatic, Normocephaly, Mucus Membranes Moist Neck: No JVD, Normal carotid pulses Cardiac: Other (Irregularly, irregular) Lungs: Normal Breath Sounds Neuro: Alert and responsive, No focal deficits noted Abdomen: Soft, Non-Tender Skin: No rashes noted on visualized skin Musculoskeletal: No Chest Wall Tenderness Extremities: No Clubbing, No Cyanosis, Normal Pulses, Other (1+ bilateral lower extremity pitting edema. ) Results 09/22/17 04:21 09/22/17 04:21 Lab Results Active Medications Acetaminophen (Tylenol) 650 mg PO Q6HR PRN PRN Reason: Mild Pain (1-3) Stop: 03/23/18 00:37 Last Admin: 09/21/17 01:23 EDT Dose: 650 mg Acetaminophen (Tylenol) 650 mg PO Q4HR PRN PRN Reason: fever and mild pain Stop: 03/23/18 00:51 Last Admin: 09/21/17 05:22 Dose: 650 mg Albuterol/Ipratropium (Duoneb) 3 ml IH [id number] PRN; Protocol PRN Reason: Shortness Of Breath/Wheezing Stop: 03/23/18 00:36 Amlodipine Besylate (Norvasc) 5 mg PO BID [facility] PRN Reason: Protocol Stop: 03/23/18 00:46 Last Admin: 09/22/17 08:36 Dose: 5 mg Aspirin (Aspirin Ec) 81 mg PO DAILY [facility] Stop: 03/23/18 09:01 Last Admin: 09/22/17 08:35 Dose: 81 mg Carvedilol (Coreg) 3.125 mg PO BIDWM [facility] PRN Reason: Protocol Stop: 03/23/18 00:46 Last Admin: 09/22/17 08:35 Dose: 3.125 mg Clonidine HCl (Clonidine Hcl) 0.1 mg PO BID [facility] Stop: 03/23/18 00:46 Last Admin: 09/22/17 08:35 Dose: 0.1 mg Dextrose/Water (Dextrose 50% (Syg)) 25 ml IVP AD PRN PRN Reason: Hypoglycemia Stop: 03/23/18 00:37 Glucagon (Glucagen) 1 mg IM ONCE PRN PRN Reason: Hypoglycemia Stop: 03/23/18 00:37 Glucose (Gluctose) 15 gm PO ONCE PRN PRN Reason: Hypoglycemia Stop: 03/23/18 00:37 Glucose (Gluctose) 30 gm PO ONCE PRN PRN Reason: Hypoglycemia Stop: 03/23/18 00:37 Hydralazine HCl (Hydralazine) 20 mg IVP Q6HR PRN PRN Reason: Hypertension Stop: 03/23/18 00:51 Levofloxacin/Dextrose (Levaquin Premix 500mg/100ml) 500 mg in 100 mls @ 100 mls /hr IVPB Q24H [facility] PRN Reason: Protocol Stop: 03/23/18 23:01 Last Admin: 09/22/17 00:23 Dose: 100 mls/hr Dextrose (Dextrose 5%) 1,000 mls @ 100 mls/hr IVC .Q10H PRN PRN Reason: HYPOGLYCEMIA Stop: 03/23/18 00:37 Cefepime HCl 1,000 mg/ Sterile (Water) 10 mls @ 150 mls/hr IVP Q24H [facility] Stop: 03/24/18 02:01 Last Admin: 09/22/17 03:28 Dose: 150 mls/hr Insulin Human Lispro (Humalog) 0 units SQ TIDAC [facility] PRN Reason: Protocol Stop: 03/23/18 07:31 Last Admin: 09/22/17 08:36 Dose: 4 units Insulin Human Lispro (Humalog) 0 units SQ HS [facility] PRN Reason: Protocol Stop: 03/23/18 21:01 Last Admin: 09/21/17 21:05 Dose: Not Given Morphine Sulfate (Morphine Sulfate) 2 mg IVP Q4HR PRN PRN Reason: Severe Pain (7-10) Stop: 03/23/18 00:37 Naloxone HCl (Narcan) 0.4 mg IVP Q2MIN PRN PRN Reason: Opioid Reversal Stop: 03/23/18 00:37 Nicotine (Nicoderm) 21 mg TD DAILY [facility] PRN Reason: Protocol Stop: 03/23/18 00:46 Last Admin: 09/22/17 08:35 Dose: 21 mg Omeprazole (Prilosec) 20 mg PO 0630 [facility] PRN Reason: Protocol Stop: 03/23/18 06:31 Last Admin: 09/22/17 08:36 Dose: 20 mg Ondansetron HCl (Zofran) 4 mg IVP Q8HR PRN PRN Reason: Nausea And Vomiting Stop: 03/23/18 00:37 Oxycodone HCl (Roxicodone) 5 mg PO Q6HR PRN PRN Reason: Moderate Pain (4-6) Stop: 03/23/18 00:37 Sertraline HCl (Zoloft) 50 mg PO HS [facility] Stop: 03/23/18 21:01 Last Admin: 09/21/17 21:04 Dose: 50 mg Simvastatin (Zocor) 10 mg PO HS [facility] Stop: 03/23/18 21:01 Last Admin: 09/21/17 21:04 Dose: 10 mg Warfarin Sodium (Coumadin Perpt) 1 each PO DAILY@1800 PRN PRN Reason: SEE COMMENTS Stop: 03/23/18 18:01 Laboratory Tests 09/21/17 09/22/17 09/22/17 01:01 EST 04:21 04:21 WBC 16.9 H Hgb 9.3 L D INR 2.9 Creatinine 2.70 H 09/22/17 04:21 WBC Hgb INR Creatinine 3.31 H - Imaging and Cardiology Chest Xray: report reviewed Stress Test: report reviewed Echo: pending, report reviewed - EKG Interpretation EKG results cardiology: other (Telemetry reviewed with average HR previous 12 hours noted to be 67, atrial fibrillation. PVCs noted.) Consult Discharge Plan - Plan Referrals: Brenton Kruger DO [Primary Care Provider] -
--- NOTE | 2017-09-22 09:48 | Internal Med Progress Note ---
<FishLuiz Roger - Last Filed: 09/22/17 09:44> Date of Encounter: 09/22/17 Time of Encounter: 09:44 - Assessment and plan (1) Sepsis Current Visit: Yes Status: Acute Assessment and plan: - 3 SIRS criteria (T 102.4, WBC 20.4, RR 24) with lactic acid 0.9 on initial presentation. Pt continuing to improve. - Likely secondary to UTI. - Blood culture 09/20/17 NGTD - Urine culture 09/20/17 Gram Negative Santino #1 (presumptively identified as Pseudomonas), Gram Negative Santino #2 - Hydration with IV fluid. - Continue levofloxacin and cefepime for dual antipseudomonal coverage - Closely monitor. Qualifiers: Sepsis type: sepsis due to unspecified organism Qualified Code(s): A41.9 - Sepsis, unspecified organism (2) UTI (urinary tract infection) Current Visit: Yes Status: Acute Assessment and plan: - UA found moderate leukocyte esterase and many bacteria. Urine culture showing GNR #1, GNR#2 - Patient was on David for 2 weeks prior to admission. - Continue levofloxacin and cefepime. Further de-escalation based on clinical picture and culture result. Qualifiers: Urinary tract infection type: acute cystitis Hematuria presence: with hematuria Qualified Code(s): N30.01 - Acute cystitis with hematuria (3) Elevated troponin Current Visit: Yes Status: Acute Assessment and plan: - Elevated troponin 0.14 and 0.22 on repeat. - Patient denies chest pain and no significant ischemic change on EKG. - Likely secondary to demand ischemia associated with current urosepsis. - TTE on 01/27/2017 showed LVEF 55% with basal inferior wall hypokinesis, atypical septal motion consistent with prior cardiac surgery, mild-moderate concentric LVH, indeterminate diastolic dysfunction due to A-fib, severely dilated LA, mildly dilated RA, mild TR, severe pulmonary HTN. All other wall segments with normal motion. LHC was recommended by cardiology at that time due to wall motion abnormality but patient refused. - Continue to trend troponin. - Cardiology on board and recommends SANJIV for now (4) A-fib Current Visit: No Status: Chronic Assessment and plan: - Currently rate-controlled. - Continue Coreg. - INR 2.9 today. On warfarin dosing by pharmacy. Qualifiers: Atrial fibrillation type: chronic Qualified Code(s): I48.2 - Chronic atrial fibrillation (5) CAD (coronary artery disease) Current Visit: No Status: Chronic Assessment and plan: - with history of CABG. - Patient denies chest pain at this time. - Continue aspirin, statin and beta hiram. Qualifiers: Coronary Disease-Associated Artery/Lesion type: [place] artery [place] vs. transplanted heart: [place] heart Associated angina: without angina Qualified Code(s): I25.10 - Atherosclerotic heart disease of [place] coronary artery without angina pectoris (6) Hypokalemia Current Visit: Yes Status: Acute Assessment and plan: - K 3.9 today. Continue to monitor and replace as needed (7) Hypomagnesemia Current Visit: Yes Status: Acute Assessment and plan: - Mg 1.5 on admission. Currently 1.7. Continue to monitor and replace as needed (8) Chronic kidney disease (CKD), stage IV (severe) Current Visit: Yes Status: Chronic Assessment and plan: - SCr 3.31 and eGFR 18 today. - Patient of Dr. Pavon. - Avoid nephrotoxin. (9) Type 2 diabetes mellitus Current Visit: No Status: Chronic Assessment and plan: - Insulin sliding scale with frequent glucose monitoring. 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 He reports he is doing well with no complaints. Denies fevers, chills, syncope, chest pain, dyspnea, N/V/D/C, dysuria, or leg pain/ edema. - Constitutional Vitals: Temp Pulse Resp BP Pulse Ox 98.1 F 68 18 143/66 95 09/22/17 07:00 09/22/17 07:00 09/22/17 07:00 09/22/17 07:00 09/22/17 07:00 General appearance: Present: A&O X 3, no acute distress - Head Head exam: Present: atraumatic, normocephalic - Eye Eye exam: Present: conjuntiva pink, sclera anicteric - Neck Neck exam general surgery: Present: supple, trachea midline. Absent: lymphadenopathy - Respiratory Respiratory exam: Present: CTAB. Absent: accessory muscle use, rales, rhonchi, wheezes - Cardiovascular Cardiovascular exam: Present: irregular rhythm, +S1, +S2, systolic murmur. Absent: diastolic murmur, gallop, rubs - GI/Abdominal GI/Abdominal exam: Present: normal bowel sounds, soft, no peritoneal signs. Absent: distended, tenderness - Extremities Exam Extremities exam: Present: pedal edema, warm, radial pulses palpable and symmetrical. Absent: calf tenderness, cyanotic - Neurological Exam Neurological exam: Present: CN II-XII intact, oriented X3, no focal deficits. Absent: facial droop, speech deficit - Skin Skin exam: Present: dry, intact Internal Medicine: Result - Labs CBC & Chem 7: 09/22/17 04:21 09/22/17 04:21 Labs: Short CBC 09/22/17 Range/Units 04:21 WBC 16.9 H (4.3-11.1) K/mcL Hgb 9.3 L D (12.9-16.9) g/dL Hct 28.2 L (37.5-50.1) % Plt Count 155 (140-400) K/mcL Neutrophils # 14.1 H (1.6-8.9) K/mcL BMP 09/22/17 04:21 Sodium 134 L Potassium 3.9 Chloride 107 Carbon Dioxide 18 L BUN 34 H D Creatinine 3.31 H Glucose 152 H Calcium 8.2 L Cardiac Enzymes 09/21/17 Range/Units 11: Troponin I 0.22 H* (0-0.03) ng/mL - ABG Interpretation ABG results: PT/INR, D-dimer PT 32.0 Seconds (9.4-12.1) H 09/22/17 04:21 Consult Discharge Plan - Plan Referrals: Brenton Kruger DO [Primary Care Provider] - <Sánchez Mohan A - Last Filed: 09/22/17 16:48> Date of Encounter: 09/22/17 - Assessment and plan (1) Sepsis Current Visit: Yes Status: Suspected Qualifiers: Sepsis type: Pseudomonas Qualified Code(s): A41.52 - Sepsis due to Pseudomonas (2) UTI (urinary tract infection) Current Visit: Yes Status: Acute Qualifiers: Urinary tract infection type: acute cystitis Hematuria presence: with hematuria Qualified Code(s): N30.01 - Acute cystitis with hematuria (3) Chronic kidney disease (CKD), stage IV (severe) Current Visit: Yes Status: Chronic (4) HTN (hypertension) Current Visit: No Status: Chronic Qualifiers: Hypertension type: essential hypertension Qualified Code(s): I10 - Essential (primary) hypertension (5) A-fib Current Visit: No Status: Chronic Qualifiers: Atrial fibrillation type: chronic Qualified Code(s): I48.2 - Chronic atrial fibrillation (6) CAD (coronary artery disease) Current Visit: No Status: Chronic Qualifiers: Coronary Disease-Associated Artery/Lesion type: [place] artery [place] vs. transplanted heart: lummi heart Associated angina: without angina Qualified Code(s): I25.10 - Atherosclerotic heart disease of [place] coronary artery without angina pectoris (7) Type 2 diabetes mellitus Current Visit: No Status: Chronic Qualifiers: Diabetes mellitus complication status: with kidney complications Diabetes mellitus complication detail: with chronic kidney disease Diabetes mellitus [employer] insulin use: with [employer] use Chronic kidney disease stage: stage 4 (severe) Qualified Code(s): E11.22 - Type 2 diabetes mellitus with diabetic chronic kidney disease; N18.4 - Chronic kidney disease, stage 4 (severe); N18.4 - Chronic kidney disease, stage 4 (severe); N18.4 - Chronic kidney disease, stage 4 (severe); N18.4 - Chronic kidney disease, stage 4 (severe); Z79.4 - half-way (current) use of insulin; Z79.4 - [employer] (current) use of insulin; Z79.4 - half-way (current) use of insulin; Z79.4 - [employer] (current) use of insulin (8) Tobacco abuse Current Visit: No Status: Chronic - Constitutional Vitals: Temp Pulse Resp BP Pulse Ox 98 F 57 17 151/71 95 11/06/17 15:00 09/22/17 15:00 09/22/17 15:00 09/22/17 15:00 09/22/17 15:00 Internal Medicine: Result - Labs CBC & Chem 7: 09/22/17 04:21 09/22/17 04:21 Labs: Short CBC 09/22/17 Range/Units 04:21 WBC 16.9 H (4.3-11.1) K/mcL Hgb 9.3 L D (12.9-16.9) g/dL Hct 28.2 L (37.5-50.1) % Plt Count 155 (140-400) K/mcL Neutrophils # 14.1 H (1.6-8.9) K/mcL BMP 09/22/17 04:21 Sodium 134 L Potassium 3.9 Chloride 107 Carbon Dioxide 18 L BUN 34 H D Creatinine 3.31 H Glucose 152 H Calcium 8.2 L - ABG Interpretation ABG results: PT/INR, D-dimer PT 32.0 Seconds (9.4-12.1) H 09/22/17 04:21 - Impressions Impressions Echocardiogram Limited Views 09/22/17 10:39 Impressions: LVEF 55%. Mild-moderate concentric left ventricular hypertrophy. Atypical septal motion consistent with post-operative status. Normal right ventricular structure and function. Left Ventricular Wall Motion: Rest Echo Findings The mid anterior septal and mid inferior lateral epps were not visualized. All other wall segments showed normal motion. Findings: Study Quality * Technically adequate exam. ECG Findings * Normal sinus rhythm. Left Ventricle * LVEF 55%. * Mild-moderate concentric left ventricular hypertrophy. * Atypical septal motion consistent with post-operative status. Right Ventricle * Normal right ventricular structure and function. Aorta * Normally sized aortic root. * Ascending aorta is not well visualized. - Attending Attestation I examined this patient and my medical decision-making was reviewed with the Resident Physician on 09/22/17. I agree with the documented findings, disposition and treatment plan as described except to the extent set forth below. Mr Holly is currently admitted for sepsis related to UTI. He remains moderate to high risk due to potential for worsening clinical status. Mr Holly has improved with fluids and abx. Culture with 2 gram neg rods. Final pending. No fever or chills. No GI issues. Exam Alert. Very [place] Mucus membranes dry Heart reg No wheeze Abd soft I/P 1. Sepsis - resolved. 2. UTI Further diagnoses and plan as above.
--- NOTE | 2017-09-22 17:05 | Electrocardiograph Report ---
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
[2017-09-22] MEDS ORDERED: *HR* Warfarin 4 MG TABLET PO ONE (18:00)
[2017-09-23] MEDS ORDERED: Levofloxacin 250 MG/50 ML 250 MG/50 ML BAG IVPB SCH (01:00)
[2017-09-23] MEDS: Cefepime HCl 1,000 MG in Water for inj. (sterile) 10 ML IVP SCH (01:21)
[2017-09-23 06:02] LABS: Hematocrit 26.9 % (37.5-50.1); Hemoglobin 8.9 g/dL (12.9-16.9); Mean Corpuscular HGB Conc 33.1 g/dL (31.6-35.5); Mean Corpuscular Hemoglobin 30.3 pg (28.0-33.3); Mean Corpuscular Volume 91.5 fL (83.0-100.0); Mean Platelet Volume 10.1 fL (9.4-12.4); Platelet Count 163 K/mcL (140-400); Red Blood Count 2.94 M/mcL (4.19-5.50); Red Cell Distribution Width 13.3 % (11.5-14.5)
[2017-09-23 06:14] LABS: Calcium 8.2 mg/dL (8.6-10.8); Potassium 3.8 mEq/L (3.5-4.5)
[2017-09-23 06:18] LABS: INR 2.8; Prothrombin Time 30.5 Seconds (9.4-12.1)
[2017-09-23] MEDS: Aspirin Enteric Coated 81 MG Tablet PO SCH (07:58)
[2017-09-23] MEDS: Insulin LISPRO 300 UNITS/3 ML VIAL SQ SCH ×4 (07:58→21:45)
[2017-09-23] MEDS: cloNIDine HCl 0.1 MG TABLET PO SCH ×2 (07:58→21:44)
[2017-09-23] MEDS: Nicotine 21 MG PATCH.TD24 TD SCH (07:58)
[2017-09-23] MEDS: amLODIPine 5 MG TABLET PO SCH ×2 (07:58→21:44)
--- NOTE | 2017-09-23 09:50 | Internal Med Progress Note ---
<Luiz Whitten Roger - Last Filed: 09/23/17 09:48> Date of Encounter: 09/23/17 Time of Encounter: 09:48 - Assessment and plan (1) Sepsis Current Visit: Yes Status: Suspected Assessment and plan: 3 SIRS criteria (T 102.4, WBC 20.4, RR 24) with lactic acid 0.9 on initial presentation. Pt continuing to improve, vitals and WBC normalized Likely secondary to UTI Blood culture 09/20/17 NGTD Urine culture 09/20/17 - Gram Negative Santino #1 (Pseudomonas: sensitive to cefepime, indeterminate to levaquin) - Gram Negative Santino #2 pending Hydration with IV fluid Continue antibiotics: Cefepime day #2, Levaquin day #2 Qualifiers: Sepsis type: Pseudomonas Qualified Code(s): A41.52 - Sepsis due to Pseudomonas (2) UTI (urinary tract infection) Current Visit: Yes Status: Acute Assessment and plan: UA: moderate leukocyte esterase and many bacteria Urine culture showing GNR #1 (pseudomonas), GNR#2 pending Patient was on David for 2 weeks prior to admission Continue levofloxacin and cefepime. Further de-escalation based on clinical picture and culture result. Qualifiers: Urinary tract infection type: acute cystitis Hematuria presence: with hematuria Qualified Code(s): N30.01 - Acute cystitis with hematuria (3) Elevated troponin Current Visit: Yes Status: Acute Assessment and plan: Elevated troponin 0.14 and 0.22 on repeat. Patient denies chest pain and no significant ischemic change on EKG. Likely secondary to demand ischemia associated with current urosepsis. TTE on 01/27/2017 showed LVEF 55% with basal inferior wall hypokinesis, atypical septal motion consistent with prior cardiac surgery, mild-moderate concentric LVH, indeterminate diastolic dysfunction due to A-fib, severely dilated LA, mildly dilated RA, mild TR, severe pulmonary HTN. All other wall segments with normal motion. LHC was recommended by cardiology at that time due to wall motion abnormality but patient refused. Cardiology on board and recommends SANJIV for now - Echo: LVEF 55%, mild-moderate concentric left ventricular hypertrophy, atypical septal motion consistent with post-operative changes, normal right ventricular structure and function (4) A-fib Current Visit: No Status: Chronic Assessment and plan: Currently rate-controlled. Continue Coreg. INR 2.8 today. On warfarin dosing by pharmacy. Qualifiers: Atrial fibrillation type: chronic Qualified Code(s): I48.2 - Chronic atrial fibrillation (5) CAD (coronary artery disease) Current Visit: No Status: Chronic Assessment and plan: History of CABG. Patient denies chest pain at this time Continue aspirin, statin and beta hiram Qualifiers: Coronary Disease-Associated Artery/Lesion type: [place] artery [place] vs. transplanted heart: [place] heart Associated angina: without angina Qualified Code(s): I25.10 - Atherosclerotic heart disease of [place] coronary artery without angina pectoris (6) Hypokalemia Current Visit: Yes Status: Acute Assessment and plan: K 3.8 today. Continue to monitor and replace as needed (7) Hypomagnesemia Current Visit: Yes Status: Acute Assessment and plan: Mg 1.5 on admission. Currently 1.7. Continue to monitor and replace as needed (8) Chronic kidney disease (CKD), stage IV (severe) Current Visit: Yes Status: Chronic Assessment and plan: SCr 3.22 and eGFR [address] Pavon. Avoid nephrotoxin. (9) Type 2 diabetes mellitus Current Visit: No Status: Chronic Assessment and plan: Insulin sliding scale with frequent glucose monitoring. 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 He reports he is doing well with no complaints. Denies fevers, chills, syncope, chest pain, dyspnea, N/V/D/C, dysuria, or leg pain/ edema. - Constitutional Vitals: Temp Pulse Resp BP Pulse Ox 98.4 F 68 18 158/75 95 09/23/17 07:00 09/23/17 07:00 09/23/17 07:00 09/23/17 07:00 09/23/17 07:00 General appearance: Present: A&O X 3, no acute distress - Head Head exam: Present: atraumatic, normocephalic - Eye Eye exam: Present: conjuntiva pink, sclera anicteric Pupils: Present: PERRL - Neck Neck exam general surgery: Present: supple, trachea midline. Absent: lymphadenopathy - Respiratory Respiratory exam: Present: CTAB. Absent: accessory muscle use, rales, rhonchi, wheezes - Cardiovascular Cardiovascular exam: Present: irregular rhythm, +S1, +S2, systolic murmur. Absent: diastolic murmur - GI/Abdominal GI/Abdominal exam: Present: normal bowel sounds, soft, no peritoneal signs. Absent: distended, tenderness - Extremities Exam Extremities exam: Present: pedal edema, warm, radial pulses palpable and symmetrical. Absent: calf tenderness, cyanotic - Neurological Exam Neurological exam: Present: CN II-XII intact, oriented X3, no focal deficits. Absent: facial droop, speech deficit - Skin Skin exam: Present: dry, intact Internal Medicine: Result - Labs CBC & Chem 7: 09/23/17 05:24 09/23/17 05:24 Labs: Short CBC 09/23/17 Range/Units 05:24 WBC 11.1 (4.3-11.1) K/mcL Hgb 8.9 L (12.9-16.9) g/dL Hct 26.9 L (37.5-50.1) % Plt Count 163 (140-400) K/mcL [facility] 09/23/17 05:24 Sodium 134 L Potassium 3.8 Chloride 106 Carbon Dioxide 18 L BUN 42 H Creatinine 3.22 H Glucose 139 H Calcium 8.2 L - ABG Interpretation ABG results: PT/INR, D-dimer PT 30.5 Seconds (9.4-12.1) H 09/23/17 05:24 - Impressions Impressions Echocardiogram Limited Views 09/22/17 10:39 Impressions: LVEF 55%. Mild-moderate concentric left ventricular hypertrophy. Atypical septal motion consistent with post-operative status. Normal right ventricular structure and function. Left Ventricular Wall Motion: Rest Echo Findings The mid anterior septal and mid inferior lateral epps were not visualized. All other wall segments showed normal motion. Findings: Study Quality * Technically adequate exam. ECG Findings * Normal sinus rhythm. Left Ventricle * LVEF 55%. * Mild-moderate concentric left ventricular hypertrophy. * Atypical septal motion consistent with post-operative status. Right Ventricle * Normal right ventricular structure and function. Aorta * Normally sized aortic root. * Ascending aorta is not well visualized. Consult Discharge Plan - Plan Referrals: Brenton Kruger DO [Primary Care Provider] - <Amanda Remy - Last Filed: 09/23/17 17:14> Date of Encounter: 09/23/17 - Constitutional Vitals: Temp Pulse Resp BP Pulse Ox 97.5 F L 61 17 168/67 97 09/23/17 16:00 09/23/17 16:00 09/23/17 16:00 09/23/17 16:00 09/23/17 16:00 Internal Medicine: Result - Labs CBC & Chem 7: 09/23/17 05:24 09/23/17 05:24 Labs: Short CBC 09/23/17 Range/Units 05:24 WBC 11.1 (4.3-11.1) K/mcL Hgb 8.9 L (12.9-16.9) g/dL Hct 26.9 L (37.5-50.1) % Plt Count 163 (140-400) K/mcL BMP 09/23/17 05:24 Sodium 134 L Potassium 3.8 Chloride 106 Carbon Dioxide 18 L BUN 42 H Creatinine 3.22 H Glucose 139 H Calcium 8.2 L - ABG Interpretation ABG results: PT/INR, D-dimer PT 30.5 Seconds (9.4-12.1) H 09/23/17 05:24 - Impressions Impressions Abdomen/Pelvis CT 09/23/17 14:00 IMPRESSION: No acute intra-abdominal or intrapelvic abnormality on noncontrast exam. There is a nodular contour of the liver surface suggestive cirrhosis with splenomegaly. Trace ascites. Cholelithiasis. Stable appearance of the right renal lesions which are predominately cystic. No nephrolithiasis or hydronephrosis. D/ / Brenda Drummond MD / Brenda Drummond MD Interpreting Provider: Brenda Drummond MD - Attending Attestation I have seen and examined the patient independently. I have discussed with resident physician Dr Whitten regarding the management plan. Agree with the documentation. Patient feels fine. No fever. WBC trended down. Vital signs stable. CT abdomen shows no hydronephrosis or renal stone. Will continue cefepime per sensitivity. Will give low rate IV fluid hydration for worsening renal functions. Follow-up renal function
[2017-09-23] MEDS: 0.9 % Sodium Chloride 1,000 ML IVC SCH (12:34)
[2017-09-23] MEDS ORDERED: *HR* Warfarin 4 MG TABLET PO ONE (18:00)
[2017-09-24] MEDS: Cefepime HCl 1,000 MG in Water for inj. (sterile) 10 ML IVP SCH (01:57)
[2017-09-24 05:24] LABS: Hematocrit 28.5 % (37.5-50.1); Hemoglobin 9.4 g/dL (12.9-16.9); Mean Corpuscular Volume 91.1 fL (83.0-100.0); Mean Platelet Volume 10.1 fL (9.4-12.4); Platelet Count 167 K/mcL (140-400); Red Blood Count 3.13 M/mcL (4.19-5.50); Red Cell Distribution Width 13.2 % (11.5-14.5)
[2017-09-24 05:36] LABS: INR 2.6; Prothrombin Time 28.4 Seconds (9.4-12.1)
[2017-09-24 05:40] LABS: Calcium 8.4 mg/dL (8.6-10.8); Potassium 3.9 mEq/L (3.5-4.5)
[2017-09-24] MEDS: 0.9 % Sodium Chloride 1,000 ML IVC SCH (06:15)
[2017-09-24 08:05] VITALS: BP 158/86
[2017-09-24] MEDS: cloNIDine HCl 0.1 MG TABLET PO SCH (08:43)
[2017-09-24] MEDS: Aspirin Enteric Coated 81 MG Tablet PO SCH (08:43)
[2017-09-24] MEDS: Nicotine 21 MG PATCH.TD24 TD SCH (08:44)
[2017-09-24] MEDS: amLODIPine 5 MG TABLET PO SCH (08:44)
[2017-09-24] MEDS: Insulin LISPRO 300 UNITS/3 ML VIAL SQ SCH ×2 (08:51→12:53)
--- NOTE | 2017-09-24 10:34 | Discharge Summary ---
<Luiz Whitten - Last Filed: 09/24/17 10:42> Date of Encounter: 09/24/17 Time of Encounter: 10:27 - Discharge Diagnosis (1) UTI (urinary tract infection) Priority: Primary Status: Acute Qualifiers: Urinary tract infection type: acute cystitis Hematuria presence: with hematuria Qualified Code(s): N30.01 - Acute cystitis with hematuria (2) Sepsis Priority: Secondary Status: Suspected Qualifiers: Sepsis type: Pseudomonas Qualified Code(s): A41.52 - Sepsis due to Pseudomonas (3) Elevated troponin Priority: Secondary Status: Acute (4) A-fib Priority: Secondary Status: Chronic Qualifiers: Atrial fibrillation type: chronic Qualified Code(s): I48.2 - Chronic atrial fibrillation (5) CAD (coronary artery disease) Priority: Secondary Status: Chronic Qualifiers: Coronary Disease-Associated Artery/Lesion type: [place] artery [place] vs. 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: with 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 drier operator use Chronic kidney disease stage: stage 4 (severe) Qualified Code(s): E11.22 - Type 2 diabetes mellitus with diabetic chronic kidney disease; N18.4 - Chronic kidney disease, stage 4 (severe); N18.4 - Chronic kidney disease, stage 4 (severe); N18.4 - Chronic kidney disease, stage 4 (severe); N18.4 - Chronic kidney disease, stage 4 (severe); 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; 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; Z79.4 - shelter (current) use of insulin; 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 - Discharge Medications Prescriptions: Cefepime HCl [Maxipime] 1,000 mg IVP Q24H #4 vial Home Medications: Carvedilol [Coreg] 3.125 mg PO BID 01/26/17 [History] CloNIDine HCl [Kapvay] 0.1 mg PO BID 01/26/17 [History] Furosemide [Lasix] 40 mg PO QPM 01/26/17 [History] Insulin Glargine [Lantus] 55 unit SQ QAM 01/26/17 [History] Insulin Regular, Human [Novolin R] 2 - 10 unit SQ TIDWM 01/26/17 [History] Lisinopril 40 mg PO QAM 01/26/17 [History] Omeprazole [PriLOSEC] 20 mg PO QAM 01/26/17 [History] Sertraline [Zoloft] 50 mg PO HS 01/26/17 [History] Simvastatin 10 mg PO HS 01/26/17 [History] Warfarin [Coumadin] 5 mg PO Q48H 01/26/17 [History] Warfarin [Coumadin] 7.5 mg PO Q48H 01/26/17 [History] amLODIPine [Norvasc] 5 mg PO BID 01/26/17 [History] Furosemide [Lasix] 20 mg PO QAM 08/31/17 [History] Digoxin [Lanoxin] 0.125 mg PO Q48H 09/22/17 [History] Cefepime HCl [Maxipime] 1,000 mg IVP Q24H #4 vial 09/24/17 [Rx] Allergies/Adverse Reactions: 3 Allergy/AdvReac Type Severity Reaction Status Date / Time No Known Allergies Allergy Verified 08/30/17 17:58 Procedures/tests Complete & Pending: Procedures Performed prior 72 hours Category Date Time Status CT abd pelvis wo no iv no oral [CT] Stat Cat Scan 09/23/17 14:00 Completed EV limited echocardiogram Routine Y 09/22/17 10:39 Completed Date of admission: 09/21/17 00:36 Primary care physician: Brenton Kruger Consults: 09/21/17 01:34 Consult to Nutrition [CONS] Routine Comment: Consulting Provider: NUTRITION Reason for Dietary Consult: MST Score 09/22/17 14:35 Consult to Physical Therapy [CONS] Routine Comment: Evaluate, develop and implement POC Reason for Consult: Discharge planning OT [Consult to Occupational Therapy] [CONS] Routine Comment: Evaluate, develop and implement POC Reason for Consult: Discharge planning Discharging clinician: Luiz Whitten Anticipated date of discharge: 09/24/17 - Patient Status Disposition: Home Health Service Condition: Fair Functional capacity at discharge: independent ambulation Overall status at discharge: patient is back to baseline - Discharge Instructions Follow Up With: Zina Knowles CNP [Partnered Physician] - 09/30/17 10:00 am Brenton Kruger DO [Primary Care Provider] - Additional Instructions: pcp requested Take your medications as prescribed Complete 4 more days of IV Cefepime (antibiotic) Follow instructions of home health and physical therapy Follow-up with your PCP Return to the hospital if your symptoms return or worsen - Diet and Activity Activity: as per physical therapy Diet: diabetic diet, low fat, low cholesterol, low salt diet Interval History: Pt seen and examined. He reports he is doing well with no complaints. Denies syncope, light-headedness, chest pain, dyspnea, N/V/D/C, dysuria, or leg pain/ edema. Hospital course: Mr. Holly is a 77 year old male admitted for sepsis secondary to UTI. Cefepime and Levaquin were initiated. He presented with a ching catheter in place to help his renal function as he only has one kidney remaining. Urine culture grew Pseudomonas and Citrobacter freundii - both sensitive to Cefepime. Psuedomonas was indeterminant to Levaquin. CT of abdomen/pelvis showed no hydronephrosis and no acute abnormalities. He completed 3 days of Cefepime and will be discharged with home health and home infusion to complete 4 more days of Cefepime. He is hemodynamically stable and will be discharged home with follow- up with Dr. Kruger and home health. - Time Spent with Patient Total time spent providing and/or coordinating discharge services: Greater than 30 minutes - Constitutional Vitals: Temp Pulse Resp BP Pulse Ox 98.4 F 68 16 158/86 97 09/24/17 08:02 09/24/17 08:02 09/24/17 08:02 09/24/17 08:02 09/24/17 08:02 General appearance: Present: A&O X 3, no acute distress - Head Head exam: Present: atraumatic, normocephalic - Eye Eye exam: Present: conjuntiva pink, sclera anicteric - Neck Neck exam general surgery: Present: supple, trachea midline. Absent: lymphadenopathy - Respiratory Respiratory exam: Present: CTAB. Absent: accessory muscle use, rales, rhonchi, wheezes - Cardiovascular Cardiovascular exam: Present: irregular rhythm, +S1, +S2, systolic murmur. Absent: diastolic murmur - GI/Abdominal GI/Abdominal exam: Present: normal bowel sounds, soft, no peritoneal signs. Absent: distended, tenderness - Extremities Exam Extremities exam: Present: pedal edema, warm, radial pulses palpable and symmetrical. Absent: calf tenderness, cyanotic - Neurological Exam Neurological exam: Present: CN II-XII intact, oriented X3, no focal deficits. Absent: facial droop, speech deficit - Skin Skin exam: Present: dry, intact <Amanda Remy - Last Filed: 09/24/17 12:05> Date of Encounter: 09/24/17 Procedures/tests Complete & Pending: Procedures Performed prior 72 hours Category Date Time Status CT abd pelvis wo no iv no oral [CT] Stat Cat Scan 09/23/17 14:00 Completed EV limited echocardiogram Routine Y 09/22/17 10:39 Completed Date of admission: 09/21/17 00:36 Primary care physician: Brenton Kruger Consults: 09/21/17 01:34 Consult to Nutrition [CONS] Routine Comment: Consulting Provider: NUTRITION Reason for Dietary Consult: MST Score 09/22/17 14:35 Consult to Physical Therapy [CONS] Routine Comment: Evaluate, develop and implement POC Reason for Consult: Discharge planning OT [Consult to Occupational Therapy] [CONS] Routine Comment: Evaluate, develop and implement POC Reason for Consult: Discharge planning Hospital course: Mr. Holly is a 77 year old male - Time Spent with Patient Total time spent providing and/or coordinating discharge services: - Constitutional Vitals: Temp Pulse Resp BP Pulse Ox 98.4 F 68 16 158/86 97 09/24/17 08:02 09/24/17 08:02 09/24/17 08:02 09/24/17 08:02 09/24/17 08:02 - Attending Attestation I have seen and examined the patient independently. I have discussed with resident physician Dr Whitten regarding the management plan. Agree with the documentation. Patient admitted for urosepsis and UTI. Sepsis resolved after treatment. Will continue cefepime IV to finish a 7 day course per sensitivity of urine culture. Patient has worsening renal function but creatinine level trended down now. Patient has a good intake and good urine output. Will discharge patient home today as home health and home IV infusion setup up by social work.
--- NOTE | 2017-09-24 10:37 | Physician Discharge Referral ---
Home Health/Hosp Referral Info Transfer to: Home Health Provider in Charge Post Discharge: PCP - Diagnosis (1) UTI (urinary tract infection) Priority: Primary Status: Acute (2) Sepsis Priority: Secondary Status: Suspected (3) Elevated troponin Priority: Secondary Status: Acute (4) A-fib Priority: Secondary Status: Chronic (5) CAD (coronary artery disease) Priority: Secondary Status: Chronic (6) Hypokalemia Priority: Secondary Status: Acute (7) Hypomagnesemia Priority: Secondary Status: Acute (8) Chronic kidney disease (CKD), stage IV (severe) Priority: Secondary Status: Chronic (9) Type 2 diabetes mellitus Priority: Secondary Status: Chronic - Respiratory Orders Smoking Cessation: Smoking cessation has been advised. For more information, call the [email or web address] Quit Line at 2-002-HQHW-NOW. - Diet/Nutrition Diet/Nutrition Orders: Renal, Cardiac - Activity Activity Orders: Ambulate - Services Needed Following services are medically necessary services: Nursing, Home Health Aide, Physical Therapy, Occupational Therapy, Home Infusion - Transfer Medications Prescriptions: Cefepime HCl [Maxipime] 1,000 mg IVP Q24H #4 vial Home Medications: Carvedilol [Coreg] 3.125 mg PO BID 01/26/17 [History] CloNIDine HCl [Kapvay] 0.1 mg PO BID 01/26/17 [History] Furosemide [Lasix] 40 mg PO QPM 01/26/17 [History] Insulin Glargine [Lantus] 55 unit SQ QAM 01/26/17 [History] Insulin Regular, Human [Novolin R] 2 - 10 unit SQ TIDWM 01/26/17 [History] Lisinopril 40 mg PO QAM 01/26/17 [History] Omeprazole [PriLOSEC] 20 mg PO QAM 01/26/17 [History] Sertraline [Zoloft] 50 mg PO HS 01/26/17 [History] Simvastatin 10 mg PO HS 01/26/17 [History] Warfarin [Coumadin] 5 mg PO Q48H 01/26/17 [History] Warfarin [Coumadin] 7.5 mg PO Q48H 01/26/17 [History] amLODIPine [Norvasc] 5 mg PO BID 01/26/17 [History] Furosemide [Lasix] 20 mg PO QAM 08/31/17 [History] Digoxin [Lanoxin] 0.125 mg PO Q48H 09/22/17 [History] Cefepime HCl [Maxipime] 1,000 mg IVP Q24H #4 vial 09/24/17 [Rx] Allergies/Adverse Reactions: 3 Allergy/AdvReac Type Severity Reaction Status Date / Time No Known Allergies Allergy Verified 08/30/17 17:58 Certification: Further, I certify that my clinical findings support that this patient is homebound (i.e. absences from home require considerable and taxing effort and are for medical reasons or evangelical services or infrequently or short duration when for other reasons) because: Homebound Reason: Leaving home requires considerable and taxing effort due to condition Attestation: My signature below is to certify that this patient is under my care and that I, or nurse practitioner, or a physician's butcher assistant working with me, has a face-to -face encounter with this patient.
[2017-09-24] MEDS ORDERED: Cefepime HCl 1,000 MG in Water for inj. (sterile) 10 ML IVP ONE (14:00)
[2017-09-24] MEDS ORDERED: *HR* Warfarin 5 MG TABLET PO ONE (18:00)
== END 2017-09-24 16:10 | disposition home health service (06) | DRG 872 ==
LOC: 2NENU 20:50 → EMEROO 20:50 → 2NENU 23:48 → SUATTDRO 09-21 00:36
PROVIDERS: ADMIT Internal Medicine; ATTEND Internal Medicine